=== PATIENT | male | born 1945 | race Caucasian/White ===

== ENCOUNTER → 2019-06-01 08:48 | Outpatient (BNVA) | payer MEDICARE, OTHER, SELFPAY | PROVIDERS: Family Provider Family Medicine; PCP Family Medicine; Referring Provider Internal Medicine Rheumatology; Visit Provider Internal Medicine Rheumatology | DX: M05.79 Rheumatoid arthritis with rheumatoid factor of multiple sites without organ or systems involvement (principal); Z79.899 Other long term (current) drug therapy | CPT/HCPCS: 36415; 82565; 84460; 85025; 85651; 86140 ==

== ENCOUNTER → 2019-06-01 09:03 | Outpatient (BNVA) | payer MEDICARE, OTHER, SELFPAY | PROVIDERS: Family Provider Family Medicine; PCP Family Medicine; Referring Provider Internal Medicine Rheumatology | DX: M05.79 Rheumatoid arthritis with rheumatoid factor of multiple sites without organ or systems involvement (principal) | CPT/HCPCS: 85025 ==

== ENCOUNTER → 2019-06-07 11:55 | Outpatient (BNVA) | payer MEDICARE, OTHER, SELFPAY | PROVIDERS: Family Provider Family Medicine; PCP Family Medicine; Visit Provider Internal Medicine Rheumatology | DX: M05.9 Rheumatoid arthritis with rheumatoid factor, unspecified (principal); Z79.899 Other long term (current) drug therapy; Z11.59 Encounter for screening for other viral diseases; Z11.1 Encounter for screening for respiratory tuberculosis | CPT/HCPCS: 36415; 80076; 82306; 82565; 85025; 85651; 86140; 86480; 86704; 86803; 87340; 99214 ==

== ENCOUNTER → 2019-06-07 13:01 | Outpatient (BNVA) | payer MEDICARE, OTHER, SELFPAY | PROVIDERS: Family Provider Family Medicine; PCP Family Medicine; Visit Provider Internal Medicine Rheumatology | DX: M05.9 Rheumatoid arthritis with rheumatoid factor, unspecified (principal); Z79.899 Other long term (current) drug therapy; Z11.59 Encounter for screening for other viral diseases | CPT/HCPCS: 85025 ==

== ENCOUNTER → 2019-08-29 12:28 | Outpatient (BNVA) | payer MEDICARE, OTHER, SELFPAY | PROVIDERS: Family Provider Family Medicine; PCP Family Medicine; Visit Provider Internal Medicine Rheumatology | DX: M19.90 Unspecified osteoarthritis, unspecified site (principal); Z79.899 Other long term (current) drug therapy | CPT/HCPCS: 36415; 80076; 82565; 85025; 85651; 86140 ==

== ENCOUNTER → 2019-09-07 12:51 | Outpatient (BNVA) | payer MEDICARE, OTHER, SELFPAY | PROVIDERS: Family Provider Family Medicine; PCP Family Medicine; Visit Provider Internal Medicine Rheumatology | DX: M05.79 Rheumatoid arthritis with rheumatoid factor of multiple sites without organ or systems involvement (principal); Z79.899 Other long term (current) drug therapy | CPT/HCPCS: 99214 ==

== ENCOUNTER → 2019-12-07 08:54 | Outpatient (BNVA) | payer MEDICARE, OTHER, SELFPAY | PROVIDERS: Family Provider Family Medicine; PCP Family Medicine; Visit Provider Internal Medicine Rheumatology | DX: Z79.899 Other long term (current) drug therapy (principal) | CPT/HCPCS: 36415; 80076; 82565; 85025; 85651; 86140 ==

== ENCOUNTER → 2020-03-26 11:31 | Outpatient (BNVA) | payer MEDICARE, OTHER, SELFPAY | PROVIDERS: Family Provider Family Medicine; PCP Family Medicine; Visit Provider Internal Medicine Rheumatology | DX: M05.79 Rheumatoid arthritis with rheumatoid factor of multiple sites without organ or systems involvement (principal); Z79.899 Other long term (current) drug therapy; Z87.891 Personal history of nicotine dependence | CPT/HCPCS: 99213 ==

== ENCOUNTER → 2020-09-04 09:52 | Outpatient (BNVA) | payer MEDICARE, OTHER, SELFPAY | PROVIDERS: Family Provider Family Medicine; PCP Family Medicine; Visit Provider Internal Medicine Rheumatology | DX: M05.79 Rheumatoid arthritis with rheumatoid factor of multiple sites without organ or systems involvement (principal); Z79.899 Other long term (current) drug therapy; I48.21 Permanent atrial fibrillation; Z87.891 Personal history of nicotine dependence | CPT/HCPCS: 99214 ==

== ENCOUNTER 2020-12-09 07:35 | Outpatient (CLI) | payer MEDICARE, OTHER, SELFPAY ==
--- NOTE | 2020-12-09 07:41 | USCV_ITS ---
Osvaldo Dwayne Age: 75 Gender: M : 1945 Exam Date: 12/09/2020 07:55 Ordering Phys: Agustin Beltran MD Technologist: Saqib Santos Exam Location: [facility] [place] Indication: CHEST PAIN BP: 130 / 75 HR: 76 Rhythm: Sinus Technical Quality: Fair MEASUREMENTS (Male / Female) Normal Values 2D ECHO LV Diastolic Diameter PLAX 3.8 cm 4.2 - 5.9 / 3.9 - 5.3 cm LV Systolic Diameter PLAX 2.2 cm IVS Diastolic Thickness 0.9 cm 0.6 - 1.0 / 0.6 - 0.9 cm IVS Systolic Thickness 0.8 cm LVPW Diastolic Thickness 1.0 cm 0.6 - 1.0 / 0.6 - 0.9 cm LVPW Systolic Thickness 2.2 cm LVOT Diameter 2.1 cm LV Ejection Fraction 2D Teich 51.2 % LV Ejection Fraction MOD 2C 59.7 % LV Ejection Fraction 2C AL 59.4 % LA Diameter 4.2 cm LA Width 3.6 cm LA Height 5.5 cm RA Width 4.3 cm RA Height 5.9 cm Aorta at Sinotubular Diameter 2.9 cm M-MODE MV E Point Septal Separation 0.8 cm DOPPLER AV Peak Velocity 127.0 cm/s LVOT Peak Velocity 84.0 cm/s AV Area Cont Eq vti 2.6 cm squared AV Area Cont Eq pk 2.4 cm squared MV Area PHT 5.0 cm squared Mitral E to A Ratio 2.0 MV E' Velocity 47.0 cm/s Mitral E to MV E' Ratio 6.4 Mitral E to LV E' Lateral Ratio 5.5 Mitral E to LV E' Septal Ratio 7.6 TR Peak Velocity 253.5 cm/s TR Peak Gradient 25.7 mmHg TV Peak E Velocity 87.0 cm/s Right Atrial Pressure 3.0 mmHg Pulmonary Artery Systolic Pressu 28.7 mmHg PV Peak Velocity 98.0 cm/s FINDINGS Left Ventricle Normal left ventricular cavity size. Normal left ventricular systolic function. No regional wall motion abnormalities. Left ventricular ejection fraction is estimated at 60 %. Grade II/IV diastolic dysfunction, moderately elevated filling pressures. Right Ventricle The right ventricle is normal in size and function. Right Atrium The right atrium is normal in size. Left Atrium The left atrium is normal in size. Mitral Valve Moderately thickened mitral valve. Mild mitral annular calcification. No mitral valve stenosis. Trace mitral valve regurgitation. Aortic Valve Structurally normal aortic valve without significant sclerosis or stenosis. There is no aortic regurgitation. Tricuspid Valve Moderate tricuspid valve regurgitation. Pulmonic Valve Mild pulmonary valve regurgitation. Pericardium Normal pericardium without effusion. Aorta Normal ascending aorta dimension. CONCLUSIONS 1-Normal left ventricular cavity size. Normal left ventricular systolic function. No regional wall motion abnormalities. Left ventricular ejection fraction is estimated at 60 %. Grade II/IV diastolic dysfunction, moderately elevated filling pressures. 2-Moderately thickened mitral valve. Mild mitral annular calcification. No mitral valve stenosis. Trace mitral valve regurgitation. 3-Moderate tricuspid valve regurgitation. 4-Structurally normal aortic valve without significant sclerosis or stenosis. There is no aortic regurgitation. 5-Mild pulmonary valve regurgitation. 6-There is no pericardial effusion. 7-Pulmonary artery systolic pressure is within normal limits. 8-Right atrial pressure is around 5 mm of mercury. 9-No significant change since the prior echocardiogram study of 04/21/2017. Kesha Frias MD (Electronically Signed) Final Date: 09 December 2020 20:05 S
== END 2020-12-09 07:36 | disposition home or self-care (01) ==
PROVIDERS: PCP Family Medicine; Visit Provider Family Medicine
DX: I48.91 Unspecified atrial fibrillation (principal); I50.32 Chronic diastolic (congestive) heart failure; I08.1 Rheumatic disorders of both mitral and tricuspid valves
CPT/HCPCS: 93306

== ENCOUNTER → 2021-02-24 12:48 | Outpatient (BNVA) | payer MEDICARE, OTHER, SELFPAY | PROVIDERS: PCP Family Medicine; Visit Provider Internal Medicine Rheumatology | DX: M05.79 Rheumatoid arthritis with rheumatoid factor of multiple sites without organ or systems involvement (principal); Z79.899 Other long term (current) drug therapy; I48.21 Permanent atrial fibrillation; Z71.89 Other specified counseling; Z87.891 Personal history of nicotine dependence | CPT/HCPCS: 99214 ==

== ENCOUNTER → 2021-04-28 14:15 | Outpatient (BNVA) | payer MEDICARE, OTHER, SELFPAY | PROVIDERS: PCP Family Medicine; Visit Provider Nurse Practitioner Family | DX: Z20.822 Contact with and (suspected) exposure to COVID-19 (principal) | CPT/HCPCS: 87426; 87635 ==

== ENCOUNTER 2021-04-30 09:09 | Outpatient (CLI) | payer MEDICARE, OTHER, SELFPAY ==
[2021-04-30 09:35] VITALS: BP 121/75; PULSE 91; RESP 17; TEMP 36.8; O2SAT 98; BMI 29.7
[2021-04-30 10:49] VITALS: BP 110/73; PULSE 68; RESP 18; TEMP 36.7; O2SAT 97
[2021-04-30 11:30] VITALS: BP 108/77; PULSE 76; RESP 17; TEMP 36.8; O2SAT 98
[2021-04-30 11:39] VITALS: BP 108/77; PULSE 76; RESP 17; TEMP 36.8; O2SAT 98
== END 2021-04-30 09:10 | disposition home or self-care (01) ==
LOC: OPS 09:20
PROVIDERS: PCP Family Medicine; Visit Provider Nurse Practitioner Family
DX: U07.1 COVID-19 (principal)
CPT/HCPCS: 96365

== ENCOUNTER → 2021-06-23 12:31 | Outpatient (BNVA) | payer MEDICARE, OTHER, SELFPAY | PROVIDERS: PCP Family Medicine; Visit Provider Internal Medicine Rheumatology | DX: M05.79 Rheumatoid arthritis with rheumatoid factor of multiple sites without organ or systems involvement (principal); I48.21 Permanent atrial fibrillation; Z79.899 Other long term (current) drug therapy; Z71.89 Other specified counseling | CPT/HCPCS: 99214 ==

== ENCOUNTER → 2021-09-19 08:59 | Outpatient (BNVA) | payer MEDICARE, OTHER, SELFPAY | PROVIDERS: PCP Family Medicine; Visit Provider Internal Medicine Rheumatology | DX: M05.79 Rheumatoid arthritis with rheumatoid factor of multiple sites without organ or systems involvement (principal); Z79.899 Other long term (current) drug therapy | CPT/HCPCS: 80076; 82565; 85025; 86140 ==

== ENCOUNTER → 2021-09-29 13:24 | Outpatient (BNVA) | payer MEDICARE, OTHER, SELFPAY | PROVIDERS: PCP Family Medicine; Visit Provider Internal Medicine Cardiovascular Disease | DX: I48.21 Permanent atrial fibrillation (principal); Z79.01 Long term (current) use of anticoagulants; I10 Essential (primary) hypertension | CPT/HCPCS: 99213; 99214 ==

== ENCOUNTER 2021-12-09 09:56 | Outpatient (CLI) | payer MEDICARE, OTHER, SELFPAY ==
[2021-12-09 10:34] LABS: Basophils % 0.2 %; Eosinophils # 0.8 10^3/uL (0.0-0.8); Eosinophils % 11.7 %; Hematocrit 43.8 % (42.0-52.0); Hemoglobin 14.7 g/dL (11.7-16.6); Lymphocytes # 1.5 10^3/uL (0.8-4.8); Lymphocytes % 23.2 %; Mean Corpuscular HGB Conc 33.6 g/dL (30.0-36.0); Mean Corpuscular Hemoglobin 32.3 pg (28.0-34.0); Mean Corpuscular Volume 96.3 fl (80-94); Mean Platelet Volume 9.1 fL (7.4-10.4); Monocytes # 0.2 10^3/uL (0.2-0.9); Monocytes % 3.2 %; Neutrophils # 4.04 10^3/uL (1.8-7.7); Neutrophils % 61.1 %; Nucleated Red Blood Cells % 0 %; Platelet Count 220 10^3/cmm (130-400); Red Blood Count 4.55 10^6/uL (4.1-5.3); Red Cell Distribution Width 13.7 % (12.1-15.1); White Blood Count 6.6 10^3/uL (4.0-10.0)
[2021-12-09 11:00] LABS: Alanine Aminotransferase 20 U/L (0-41); Albumin Level 3.9 g/dL (3.5-5.2); Alkaline Phosphatase 69 U/L (40-130); Aspartate Amino Transferase 20 U/L (0-40); C Reactive Protein 9.5 mg/L (0.0-4.9); Globulin 3.3 g/dL (1.3-4.6); Total Bilirubin 0.9 mg/dL (0.15-1.2); Total Protein 7.2 g/dL (6.6-8.7)
== END 2021-12-09 09:57 | disposition home or self-care (01) ==
LOC: LAB 09:59
PROVIDERS: PCP Family Medicine; Visit Provider Internal Medicine Rheumatology
DX: M05.79 Rheumatoid arthritis with rheumatoid factor of multiple sites without organ or systems involvement (principal); Z79.899 Other long term (current) drug therapy; M19.90 Unspecified osteoarthritis, unspecified site
CPT/HCPCS: 36415; 80076; 82565; 85025; 86140

== ENCOUNTER → 2021-12-15 10:11 | Outpatient (BNVA) | payer MEDICARE, OTHER, SELFPAY | PROVIDERS: PCP Family Medicine; Visit Provider Internal Medicine Rheumatology | DX: M05.79 Rheumatoid arthritis with rheumatoid factor of multiple sites without organ or systems involvement (principal); Z79.899 Other long term (current) drug therapy; Z71.89 Other specified counseling; Z79.01 Long term (current) use of anticoagulants | CPT/HCPCS: 99214 ==

== ENCOUNTER 2022-03-16 10:34 | Outpatient (CLI) | payer MEDICARE, OTHER, SELFPAY ==
[2022-03-16 11:17] LABS: Basophils % 0.2 %; Eosinophils # 0.5 10^3/uL (0.0-0.8); Eosinophils % 8.6 %; Hematocrit 42.8 % (42.0-52.0); Hemoglobin 14.3 g/dL (11.7-16.6); Lymphocytes # 1.2 10^3/uL (0.8-4.8); Lymphocytes % 22.5 %; Mean Corpuscular HGB Conc 33.4 g/dL (30.0-36.0); Mean Corpuscular Hemoglobin 32.9 pg (28.0-34.0); Mean Corpuscular Volume 98.4 fl (80-94); Mean Platelet Volume 9.1 fL (7.4-10.4); Monocytes # 0.2 10^3/uL (0.2-0.9); Monocytes % 3.7 %; Neutrophils # 3.44 10^3/uL (1.8-7.7); Neutrophils % 64.4 %; Nucleated Red Blood Cells % 0 %; Platelet Count 228 10^3/cmm (130-400); Red Blood Count 4.35 10^6/uL (4.1-5.3); Red Cell Distribution Width 13.3 % (12.1-15.1); White Blood Count 5.3 10^3/uL (4.0-10.0)
[2022-03-16 11:50] LABS: Alanine Aminotransferase 15 U/L (0-41); Albumin Level 3.5 g/dL (3.5-5.2); Alkaline Phosphatase 68 U/L (40-130); Aspartate Amino Transferase 14 U/L (0-40); C Reactive Protein 4.1 mg/L (0.0-4.9); Globulin 3.5 g/dL (1.3-4.6)
== END 2022-03-16 10:35 | disposition home or self-care (01) ==
PROVIDERS: PCP Family Medicine; Visit Provider Internal Medicine Rheumatology
DX: M05.79 Rheumatoid arthritis with rheumatoid factor of multiple sites without organ or systems involvement (principal); Z79.899 Other long term (current) drug therapy
CPT/HCPCS: 80076; 82565; 85025; 86140

== ENCOUNTER → 2022-04-22 13:48 | Outpatient (BNVA) | payer MEDICARE, OTHER, SELFPAY | PROVIDERS: PCP Family Medicine; Visit Provider Internal Medicine Cardiovascular Disease | DX: I48.21 Permanent atrial fibrillation (principal); I10 Essential (primary) hypertension; E78.5 Hyperlipidemia, unspecified; G47.33 Obstructive sleep apnea (adult) (pediatric); Z87.891 Personal history of nicotine dependence; Z79.01 Long term (current) use of anticoagulants | CPT/HCPCS: 93005; 99214 ==

== ENCOUNTER 2022-06-01 10:34 | Outpatient (CLI) | payer MEDICARE, OTHER, SELFPAY ==
[2022-06-01 11:08] LABS: Basophils % 0.2 %; Eosinophils # 0.5 10^3/uL (0.0-0.8); Eosinophils % 8.1 %; Hematocrit 42.9 % (42.0-52.0); Hemoglobin 14.2 g/dL (11.7-16.6); Lymphocytes # 1.2 10^3/uL (0.8-4.8); Lymphocytes % 19.7 %; Mean Corpuscular HGB Conc 33.1 g/dL (30.0-36.0); Mean Corpuscular Hemoglobin 31.8 pg (28.0-34.0); Mean Platelet Volume 9.1 fL (7.4-10.4); Monocytes # 0.2 10^3/uL (0.2-0.9); Neutrophils # 4.02 10^3/uL (1.8-7.7); Neutrophils % 67.5 %; Nucleated Red Blood Cells % 0 %; Platelet Count 185 10^3/cmm (130-400); Red Blood Count 4.47 10^6/uL (4.1-5.3); Red Cell Distribution Width 13.4 % (12.1-15.1)
[2022-06-01 11:26] LABS: Alanine Aminotransferase 14 U/L (0-41); Albumin Level 3.5 g/dL (3.5-5.2); Alkaline Phosphatase 74 U/L (40-130); Aspartate Amino Transferase 14 U/L (0-40); C Reactive Protein 14.9 mg/L (0.0-4.9); Globulin 2.9 g/dL (1.3-4.6); Total Protein 6.4 g/dL (6.6-8.7)
== END 2022-06-01 10:35 | disposition home or self-care (01) ==
LOC: LAB 10:41
PROVIDERS: Internal Medicine Rheumatology; PCP Family Medicine; Visit Provider Family Medicine
DX: M05.79 Rheumatoid arthritis with rheumatoid factor of multiple sites without organ or systems involvement (principal); Z79.899 Other long term (current) drug therapy; M19.90 Unspecified osteoarthritis, unspecified site
CPT/HCPCS: 36415; 80076; 82565; 85025; 86140

== ENCOUNTER → 2022-06-08 09:20 | Outpatient (BNVA) | payer MEDICARE, OTHER, SELFPAY | PROVIDERS: PCP Family Medicine; Visit Provider Internal Medicine Rheumatology | DX: M05.79 Rheumatoid arthritis with rheumatoid factor of multiple sites without organ or systems involvement (principal); Z79.899 Other long term (current) drug therapy; Z71.89 Other specified counseling; Z79.01 Long term (current) use of anticoagulants | CPT/HCPCS: 99214 ==

== ENCOUNTER → 2022-08-31 14:00 | Outpatient (BNVA) | payer MEDICARE, OTHER, SELFPAY | PROVIDERS: PCP Family Medicine; Visit Provider Family Medicine | DX: L98.9 Disorder of the skin and subcutaneous tissue, unspecified (principal) | CPT/HCPCS: 88304 ==

== ENCOUNTER 2022-09-04 12:34 | Outpatient (CLI) | payer MEDICARE, OTHER, SELFPAY ==
[2022-09-04 13:03] LABS: Basophils % 0.4 %; Eosinophils # 0.6 10^3/uL (0.0-0.8); Eosinophils % 10.9 %; Hematocrit 41.3 % (42.0-52.0); Hemoglobin 13.8 g/dL (11.7-16.6); Lymphocytes # 1.2 10^3/uL (0.8-4.8); Lymphocytes % 20.7 %; Mean Corpuscular HGB Conc 33.4 g/dL (30.0-36.0); Mean Corpuscular Hemoglobin 31.7 pg (28.0-34.0); Mean Corpuscular Volume 94.9 fl (80-94); Mean Platelet Volume 8.8 fL (7.4-10.4); Monocytes # 0.2 10^3/uL (0.2-0.9); Monocytes % 3.6 %; Neutrophils # 3.58 10^3/uL (1.8-7.7); Neutrophils % 63.7 %; Nucleated Red Blood Cells % 0 %; Platelet Count 204 10^3/cmm (130-400); Red Blood Count 4.35 10^6/uL (4.1-5.3); Red Cell Distribution Width 13.4 % (12.1-15.1); White Blood Count 5.6 10^3/uL (4.0-10.0)
[2022-09-04 13:19] LABS: Alanine Aminotransferase 11 U/L (0-41); Albumin Level 3.6 g/dL (3.5-5.2); Alkaline Phosphatase 70 U/L (40-130); Aspartate Amino Transferase 18 U/L (0-40); Globulin 2.8 g/dL (1.3-4.6); Total Protein 6.4 g/dL (6.6-8.7)
== END 2022-09-04 12:35 | disposition home or self-care (01) ==
PROVIDERS: Internal Medicine Rheumatology; PCP Family Medicine; Visit Provider Family Medicine
DX: M05.79 Rheumatoid arthritis with rheumatoid factor of multiple sites without organ or systems involvement (principal); Z79.899 Other long term (current) drug therapy
CPT/HCPCS: 36415; 80076; 82565; 85025; 86140

== ENCOUNTER → 2022-09-16 08:46 | Outpatient (BNVA) | payer MEDICARE, OTHER, SELFPAY | PROVIDERS: PCP Family Medicine; Referring Provider Family Medicine; Visit Provider Dermatology | DX: C44.519 Basal cell carcinoma of skin of other part of trunk (principal) | CPT/HCPCS: 11603; 12032 ==

== ENCOUNTER → 2022-11-02 09:07 | Outpatient (BNVA) | payer MEDICARE, OTHER, SELFPAY | PROVIDERS: PCP Family Medicine; Visit Provider Internal Medicine Rheumatology | DX: Z71.89 Other specified counseling (principal); Z79.899 Other long term (current) drug therapy | CPT/HCPCS: 99214 ==

== ENCOUNTER → 2022-11-04 13:35 | Outpatient (BNVA) | payer MEDICARE, OTHER, SELFPAY | PROVIDERS: PCP Family Medicine; Visit Provider Internal Medicine Cardiovascular Disease | DX: I48.21 Permanent atrial fibrillation (principal); I10 Essential (primary) hypertension; G47.33 Obstructive sleep apnea (adult) (pediatric); E78.5 Hyperlipidemia, unspecified; Z79.01 Long term (current) use of anticoagulants; Z87.891 Personal history of nicotine dependence | CPT/HCPCS: 99214 ==

== ENCOUNTER 2022-12-03 08:49 | Outpatient (CLI) | payer MEDICARE, OTHER, SELFPAY ==
[2022-12-03 09:23] LABS: Basophils % 0.4 %; Eosinophils # 1.2 10^3/uL (0.0-0.8); Eosinophils % 17.9 %; Hematocrit 43.2 % (42.0-52.0); Hemoglobin 14.4 g/dL (11.7-16.6); Lymphocytes # 1.9 10^3/uL (0.8-4.8); Lymphocytes % 27.6 %; Mean Corpuscular HGB Conc 33.3 g/dL (30.0-36.0); Mean Corpuscular Hemoglobin 32.4 pg (28.0-34.0); Mean Corpuscular Volume 97.1 fl (80-94); Mean Platelet Volume 8.7 fL (7.4-10.4); Monocytes # 0.5 10^3/uL (0.2-0.9); Monocytes % 6.6 %; Neutrophils # 3.13 10^3/uL (1.8-7.7); Neutrophils % 46.3 %; Nucleated Red Blood Cells % 0 %; Platelet Count 182 10^3/cmm (130-400); Red Blood Count 4.45 10^6/uL (4.1-5.3); Red Cell Distribution Width 14.7 % (12.1-15.1); White Blood Count 6.8 10^3/uL (4.0-10.0)
[2022-12-03 09:41] LABS: Alanine Aminotransferase 25 U/L (0-41); Albumin Level 3.8 g/dL (3.5-5.2); Alkaline Phosphatase 62 U/L (40-130); Aspartate Amino Transferase 33 U/L (0-40); Chol HDL Ratio 2.93 mg/dL (1.0-5.00); Cholesterol 117 mg/dL (0-200); Globulin 2.6 g/dL (1.3-4.6); HDL Cholesterol 40 mg/dL (60-100); LDL Cholesterol Calculated 55 mg/dL (50-129); LDL HDL Ratio 1.38 RATIO (0.00-3.22); Total Bilirubin 0.6 mg/dL (0.15-1.2); Total Protein 6.4 g/dL (6.6-8.7); Triglycerides 108 mg/dL (0-150)
== END 2022-12-03 08:50 | disposition home or self-care (01) ==
LOC: LAB 08:55
PROVIDERS: PCP Family Medicine; Visit Provider Internal Medicine Rheumatology
DX: M05.79 Rheumatoid arthritis with rheumatoid factor of multiple sites without organ or systems involvement (principal); Z79.899 Other long term (current) drug therapy; E78.5 Hyperlipidemia, unspecified
CPT/HCPCS: 36415; 80061; 80076; 82565; 85025; 86140

== ENCOUNTER → 2022-12-16 13:23 | Outpatient (BNVA) | payer MEDICARE, OTHER, SELFPAY | PROVIDERS: PCP Family Medicine; Visit Provider Nurse Practitioner Family | DX: L81.4 Other melanin hyperpigmentation (principal); D22.5 Melanocytic nevi of trunk; L57.8 Other skin changes due to chronic exposure to nonionizing radiation; L57.0 Actinic keratosis; Z85.828 Personal history of other malignant neoplasm of skin; D69.2 Other nonthrombocytopenic purpura | CPT/HCPCS: 17004; 99213 ==

== ENCOUNTER → 2023-01-14 08:59 | Outpatient (BNVA) | payer MEDICARE, OTHER, SELFPAY | PROVIDERS: PCP Family Medicine; Visit Provider Family Medicine | DX: R30.0 Dysuria (principal); E78.5 Hyperlipidemia, unspecified; I10 Essential (primary) hypertension; I48.91 Unspecified atrial fibrillation | CPT/HCPCS: 81000; 87077; 87086; 87184 ==

== ENCOUNTER 2023-03-04 09:36 | Outpatient (CLI) | payer MEDICARE, OTHER, SELFPAY ==
[2023-03-04 10:01] LABS: Basophils % 0.3 %; Eosinophils # 0.6 10^3/uL (0.0-0.8); Eosinophils % 9.7 %; Hematocrit 42.8 % (37-53); Lymphocytes # 1.3 10^3/uL (0.8-4.8); Lymphocytes % 22.2 %; Mean Corpuscular HGB Conc 33.4 g/dL (30-55); Mean Corpuscular Hemoglobin 32.4 pg (27-33); Mean Corpuscular Volume 97.1 fl (82-101); Mean Platelet Volume 8.7 fL (7.4-10.4); Monocytes # 0.2 10^3/uL (0.2-0.9); Neutrophils # 3.61 10^3/uL (1.8-7.7); Neutrophils % 62.8 %; Nucleated Red Blood Cells % 0 %; Platelet Count 187 10^3/cmm (157-399); Red Blood Count 4.41 10^6/uL (3.85-5.65); Red Cell Distribution Width 13.9 % (12.1-15.1); White Blood Count 5.76 10^3/uL (3.29-11.43)
[2023-03-04 10:21] LABS: Alanine Aminotransferase 23 U/L (0-41); Albumin Level 3.8 g/dL (3.5-5.2); Alkaline Phosphatase 76 U/L (40-130); Aspartate Amino Transferase 21 U/L (0-40); C Reactive Protein 5.7 mg/L (0.0-4.9); Globulin 3.3 g/dL (1.3-4.6); Total Bilirubin 0.6 mg/dL (0.15-1.2); Total Protein 7.1 g/dL (6.6-8.7)
== END 2023-03-04 09:37 | disposition home or self-care (01) ==
PROVIDERS: PCP Family Medicine; Visit Provider Internal Medicine Rheumatology
DX: M05.79 Rheumatoid arthritis with rheumatoid factor of multiple sites without organ or systems involvement (principal); Z79.899 Other long term (current) drug therapy
CPT/HCPCS: 36415; 80076; 82565; 85025; 86140

== ENCOUNTER 2023-03-25 09:13 | Outpatient (CLI) | payer MEDICARE, OTHER, SELFPAY ==
[2023-03-25 09:48] LABS: Blood Urea Nitrogen 23 mg/dL (8-23)
== END 2023-03-25 09:14 | disposition home or self-care (01) ==
PROVIDERS: PCP Family Medicine; Visit Provider Internal Medicine Rheumatology
DX: Z79.899 Other long term (current) drug therapy (principal); M05.79 Rheumatoid arthritis with rheumatoid factor of multiple sites without organ or systems involvement
CPT/HCPCS: 36415; 82565; 84520

== ENCOUNTER → 2023-04-27 14:18 | Outpatient (BNVA) | payer MEDICARE, OTHER, SELFPAY | PROVIDERS: PCP Family Medicine; Visit Provider Nurse Practitioner Family | DX: L57.0 Actinic keratosis (principal); Z85.828 Personal history of other malignant neoplasm of skin; L81.4 Other melanin hyperpigmentation; D22.5 Melanocytic nevi of trunk; L57.8 Other skin changes due to chronic exposure to nonionizing radiation; D69.2 Other nonthrombocytopenic purpura; L82.0 Inflamed seborrheic keratosis; D48.5 Neoplasm of uncertain behavior of skin | CPT/HCPCS: 11102; 17000; 17110; 99213 ==

== ENCOUNTER → 2023-05-03 09:21 | Outpatient (BNVA) | payer MEDICARE, OTHER, SELFPAY | PROVIDERS: PCP Family Medicine; Visit Provider Internal Medicine Rheumatology | DX: Z79.899 Other long term (current) drug therapy (principal); M05.79 Rheumatoid arthritis with rheumatoid factor of multiple sites without organ or systems involvement; Z71.89 Other specified counseling | CPT/HCPCS: 99214 ==

== ENCOUNTER → 2023-05-25 08:20 | Outpatient (BNVA) | payer MEDICARE, OTHER, SELFPAY | PROVIDERS: PCP Family Medicine; Visit Provider Dermatology | DX: C44.319 Basal cell carcinoma of skin of other parts of face (principal); C44.41 Basal cell carcinoma of skin of scalp and neck | CPT/HCPCS: 11622; 12042; 13132; 17311 ==

== ENCOUNTER → 2023-06-02 11:44 | Outpatient (BNVA) | payer MEDICARE, OTHER, SELFPAY | PROVIDERS: PCP Family Medicine; Visit Provider Family Medicine | DX: R05.9 Cough, unspecified (principal) | CPT/HCPCS: 87400 ==

== ENCOUNTER 2023-06-03 09:27 | Outpatient (CLI) | payer MEDICARE, OTHER, SELFPAY ==
[2023-06-03 10:13] LABS: Basophils % 0.2 %; Eosinophils # 0.6 10^3/uL (0.0-0.8); Eosinophils % 13.1 %; Hematocrit 45.4 % (37-53); Lymphocytes # 1.2 10^3/uL (0.8-4.8); Lymphocytes % 25.8 %; Mean Corpuscular HGB Conc 33.5 g/dL (30-55); Mean Corpuscular Volume 95.6 fl (82-101); Monocytes # 0.2 10^3/uL (0.2-0.9); Monocytes % 3.9 %; Neutrophils # 2.62 10^3/uL (1.8-7.7); Neutrophils % 56.4 %; Nucleated Red Blood Cells % 0 %; Platelet Count 196 10^3/cmm (157-399); Red Blood Count 4.75 10^6/uL (3.85-5.65); Red Cell Distribution Width 13.6 % (12.1-15.1); White Blood Count 4.65 10^3/uL (3.29-11.43)
[2023-06-03 10:31] LABS: Alanine Aminotransferase 20 U/L (0-41); Albumin Level 3.5 g/dL (3.5-5.2); Alkaline Phosphatase 71 U/L (40-130); Aspartate Amino Transferase 22 U/L (0-40); C Reactive Protein 13.5 mg/L (0.0-4.9); Globulin 3.7 g/dL (1.3-4.6); Total Bilirubin 0.6 mg/dL (0.15-1.2); Total Protein 7.2 g/dL (6.6-8.7)
[2023-06-03 10:47] LABS: 25 Hydroxy Vitamin D 26 ng/mL (30-100)
== END 2023-06-03 09:28 | disposition home or self-care (01) ==
LOC: LAB 09:27
PROVIDERS: PCP Family Medicine; Visit Provider Internal Medicine Rheumatology
DX: Z79.899 Other long term (current) drug therapy (principal); M05.79 Rheumatoid arthritis with rheumatoid factor of multiple sites without organ or systems involvement
CPT/HCPCS: 36415; 80076; 82306; 82565; 85025; 86140

== ENCOUNTER → 2023-06-07 08:46 | Outpatient (BNVA) | payer MEDICARE, OTHER, SELFPAY | PROVIDERS: PCP Family Medicine; Visit Provider Dermatology | DX: L40.0 Psoriasis vulgaris (principal) | CPT/HCPCS: 99212 ==

== ENCOUNTER → 2023-08-12 09:59 | Outpatient (BNVA) | payer MEDICARE, OTHER, SELFPAY | PROVIDERS: PCP Family Medicine; Visit Provider Internal Medicine Cardiovascular Disease | DX: I48.21 Permanent atrial fibrillation (principal); I10 Essential (primary) hypertension; E78.5 Hyperlipidemia, unspecified; G47.33 Obstructive sleep apnea (adult) (pediatric); M05.79 Rheumatoid arthritis with rheumatoid factor of multiple sites without organ or systems involvement; Z87.891 Personal history of nicotine dependence; Z79.01 Long term (current) use of anticoagulants | CPT/HCPCS: 99214 ==

== ENCOUNTER 2023-09-01 08:57 | Outpatient (CLI) | payer MEDICARE, OTHER, SELFPAY ==
[2023-09-01 09:27] LABS: Basophils % 0.3 %; Eosinophils # 0.6 10^3/uL (0.0-0.8); Eosinophils % 8.4 %; Hematocrit 42.5 % (37-53); Lymphocytes # 1.4 10^3/uL (0.8-4.8); Lymphocytes % 19.7 %; Mean Corpuscular HGB Conc 33.6 g/dL (30-55); Mean Corpuscular Hemoglobin 32.3 pg (27-33); Mean Corpuscular Volume 95.9 fl (82-101); Mean Platelet Volume 8.7 fL (7.4-10.4); Monocytes # 0.4 10^3/uL (0.2-0.9); Monocytes % 5.2 %; Neutrophils # 4.59 10^3/uL (1.8-7.7); Neutrophils % 65.7 %; Nucleated Red Blood Cells % 0 %; Platelet Count 192 10^3/cmm (157-399); Red Blood Count 4.43 10^6/uL (3.85-5.65); Red Cell Distribution Width 13.7 % (12.1-15.1); White Blood Count 6.99 10^3/uL (3.29-11.43)
[2023-09-01 09:36] LABS: Alanine Aminotransferase 16 U/L (0-41); Albumin Level 3.9 g/dL (3.5-5.2); Alkaline Phosphatase 84 U/L (40-130); Aspartate Amino Transferase 19 U/L (0-40); C Reactive Protein 6.8 mg/L (0.0-4.9); Globulin 3.3 g/dL (1.3-4.6); Total Bilirubin 0.8 mg/dL (0.15-1.2); Total Protein 7.2 g/dL (6.6-8.7)
== END 2023-09-01 08:58 | disposition home or self-care (01) ==
LOC: LAB 08:59
PROVIDERS: Internal Medicine Rheumatology; PCP Family Medicine
DX: M05.79 Rheumatoid arthritis with rheumatoid factor of multiple sites without organ or systems involvement (principal); Z79.899 Other long term (current) drug therapy
CPT/HCPCS: 36415; 80076; 82565; 85025; 86140

== ENCOUNTER → 2023-10-06 09:32 | Outpatient (BNVA) | payer MEDICARE, OTHER, SELFPAY | PROVIDERS: PCP Family Medicine; Visit Provider Nurse Practitioner Family | DX: L57.0 Actinic keratosis (principal); L56.8 Other specified acute skin changes due to ultraviolet radiation; L82.0 Inflamed seborrheic keratosis; L81.4 Other melanin hyperpigmentation; Z85.828 Personal history of other malignant neoplasm of skin | CPT/HCPCS: 17000; 17110; 99213 ==

== ENCOUNTER 2023-11-02 14:53 | Outpatient (CLI) | payer MEDICARE, OTHER, SELFPAY ==
[2023-11-02 15:34] LABS: Basophils # 0.1 10^3/uL (0.0-0.1); Basophils % 0.8 %; Eosinophils # 0.6 10^3/uL (0.0-0.8); Hematocrit 41.2 % (37-53); Lymphocytes # 3.7 10^3/uL (0.8-4.8); Lymphocytes % 36.3 %; Mean Corpuscular HGB Conc 33.5 g/dL (30-55); Mean Corpuscular Hemoglobin 31.8 pg (27-33); Mean Corpuscular Volume 94.9 fl (82-101); Mean Platelet Volume 9.3 fL (7.4-10.4); Monocytes # 0.8 10^3/uL (0.2-0.9); Neutrophils % 48.2 %; Nucleated Red Blood Cells % 0 %; Platelet Count 99 10^3/cmm (157-399); Red Blood Count 4.34 10^6/uL (3.85-5.65); Red Cell Distribution Width 13.8 % (12.1-15.1); White Blood Count 10.16 10^3/uL (3.29-11.43)
[2023-11-02 15:51] LABS: Alanine Aminotransferase 26 U/L (0-41); Albumin Level 3.9 g/dL (3.5-5.2); Alkaline Phosphatase 99 U/L (40-130); Aspartate Amino Transferase 28 U/L (0-40); C Reactive Protein 11.9 mg/L (0.0-4.9); Globulin 3.3 g/dL (1.3-4.6); Total Bilirubin 1.1 mg/dL (0.15-1.2); Total Protein 7.2 g/dL (6.6-8.7)
== END 2023-11-02 14:54 | disposition home or self-care (01) ==
LOC: LAB 14:57
PROVIDERS: PCP Family Medicine; Visit Provider Internal Medicine Rheumatology
DX: Z79.899 Other long term (current) drug therapy (principal); M05.79 Rheumatoid arthritis with rheumatoid factor of multiple sites without organ or systems involvement
CPT/HCPCS: 36415; 80076; 82565; 85025; 86140

== ENCOUNTER 2023-11-05 09:30 | Outpatient (CLI) | payer MEDICARE, OTHER, SELFPAY ==
--- NOTE | 2023-11-05 09:30 | USCV_ITS ---
Dwayne Riley Age: 78 Gender: M : 1945 Exam Date: 11/05/2023 09:38 Ordering Phys: Agustin Beltran MD Technologist: COREEN [place] [facility] [place]: TR BP: 133 / 84 HR: 82 Rhythm: Sinus Technical Quality: Adequate MEASUREMENTS (Male / Female) Normal Values 2D ECHO LV Diastolic Diameter PLAX 4.1 cm 4.2 - 5.9 / 3.9 - 5.3 cm IVS Diastolic Thickness 1.1 cm 0.6 - 1.0 / 0.6 - 0.9 cm IVS Systolic Thickness 1.5 cm LVPW Diastolic Thickness 1.6 cm 0.6 - 1.0 / 0.6 - 0.9 cm LVPW Systolic Thickness 2.0 cm LVOT Diameter 2.0 cm LV Ejection Fraction 2D Teich 66.2 % LV Ejection Fraction MOD 4C 59.0 % LV Ejection Fraction MOD 2C 63.5 % LV Ejection Fraction 2C AL 65.1 % LA Diameter 4.6 cm RA Systolic Volume 4C AL 87.0 ml RA Systolic Volume 4C MOD 84.0 ml LA Sys Volume AL 49.7 cm cubed LA Sys Volume Index AL 23.8 cm cubed/m squared Aorta at Sinotubular Diameter 2.3 cm M-MODE MV E Point Septal Separation 1.5 cm DOPPLER AV Peak Velocity 152.0 cm/s LVOT Peak Velocity 86.0 cm/s AV Area Cont Eq vti 1.8 cm squared AV Area Cont Eq pk 1.8 cm squared MV Peak Velocity 124.0 cm/s MV Area PHT 3.5 cm squared Mitral E to A Ratio 689.0 TR Peak Velocity 297.5 cm/s TR Peak Gradient 35.4 mmHg TR Mean Velocity 244.0 cm/s TR Mean Gradient 25.6 mmHg TR Velocity Time Integral 85.4 cm TV Peak E Velocity 45.0 cm/s Right Atrial Pressure 3.0 mmHg Pulmonary Artery Systolic Pressu 38.4 mmHg PV Peak Velocity 106.0 cm/s RV Ejection Time 0.3 s FINDINGS Left Ventricle Normal left ventricular size and systolic function, EF 60%. No regional wall motion abnormalities. Right Ventricle Normal right ventricular size and systolic function. Right Atrium Moderately increased right atrial size. Left Atrium Mildly increased left atrial size. Mitral Valve Trace to mild mitral valve regurgitation. Aortic Valve Thickened aortic valve. Tricuspid Valve [id number] tricuspid valve regurgitation. Pulmonic Valve [id number]-ca-[id number] pulmonary valve regurgitation. Pericardium No pericardial effusion. Aorta Normal ascending aorta dimension. IVC Normal inferior vena cava. CONCLUSIONS Normal left ventricular size and systolic function, EF 60%. No regional wall motion abnormalities. Moderately increased right atrial size. Mildly increased left atrial size. Trace to mild mitral valve regurgitation. [id number] tricuspid valve regurgitation. Thickened aortic valve. Qgsm-cx-bdhmrlxi pulmonary valve regurgitation. Estimated pulmonary artery peak systolic pressure 38 mmHg There is no pericardial effusion. There are no intracardiac masses. Compared to the study of rib report from 12/09/2020, the biatrial enlargement appears to be new Dr Jayant Diez MD [facility] (Electronically Signed) Final Date: 05 November 2023 22:32 S
== END 2023-11-05 09:31 | disposition home or self-care (01) ==
PROVIDERS: PCP Family Medicine; Visit Provider Family Medicine
DX: I07.1 Rheumatic tricuspid insufficiency (principal); I06.8 Other rheumatic aortic valve diseases; I09.89 Other specified rheumatic heart diseases
CPT/HCPCS: 93306

== ENCOUNTER → 2023-11-08 09:21 | Outpatient (BNVA) | payer MEDICARE, OTHER, SELFPAY | PROVIDERS: PCP Family Medicine; Visit Provider Internal Medicine Rheumatology | DX: M05.79 Rheumatoid arthritis with rheumatoid factor of multiple sites without organ or systems involvement (principal); Z79.899 Other long term (current) drug therapy; Z71.85 Encounter for immunization safety counseling | CPT/HCPCS: 36415; 85025; 99214 ==

== ENCOUNTER 2023-12-01 07:11 | Outpatient (CLI) | payer MEDICARE, OTHER, SELFPAY ==
--- NOTE | 2023-12-01 07:30 | CT_ITS ---
WS: [id number] CT chest w con* [id number] HISTORY: left axillary lymphadenopathy TECHNIQUE: Axial imaging performed through the thorax. Coronal and sagittal reformats are submitted. All CT scans at [facility] use at least one of these dose optimization techniques: automated exposure control; mA and/or kV adjustment per patient size (includes targeted exams where dose is mat ched to clinical indication); or iterative reconstruction. CONTRAST: Omnipaque 350; 100 mL IV. DLP: 501.34 mGy.cm COMPARISON: None available. Lungs and central airway: There are a few scattered pulmonary calcified granulomas. Mild pleural tagg ing. Mild thickening along the LEFT fissures. No mass. No pneumonia. There is a very tiny RIGHT pleur al effusion. Pleura: Very small RIGHT pleural effusion. Heart and pericardium: Mild cardiomegaly. Mediastinum and kari: There is extensive lymphadenopathy throughout the chest. Numerous small and enl arged mediastinal and hilar lymph nodes. Largest RIGHT paratracheal lymph node is 1.7 cm. There are n umerous small nodes through the AP window and subcarinal. Subcarinal lymph node measures 2.8 cm. No s ignificant hilar lymph nodes. Vessels: Mild atherosclerosis aorta. No aneurysm. Normal size pulmonary artery. Chest wall and lower neck: There is extensive lymphadenopathy throughout the lower neck and the axill a. Supraclavicular lymph nodes present bilaterally but greater distribution on the LEFT. There are sm all but numerous lymph nodes in the submental region. Extensive axillary and chest wall lymph nodes. The largest lymph nodes are on the LEFT. The largest measures 5.6 x 4.5 cm. Numerous enlarged mildly vascular lymph nodes. There are additional smaller subcutaneous lymph nodes throughout the thorax. There is also an enlarged LEFT thyroid nodule which it appears partially necrotic or cystic measuring 3.1 x 4.2 cm. Upper abdomen: Lymphadenopathy continues into the upper abdomen. Numerous lymph nodes at the GE junct ion and along the lesser curvature of the stomach. Celiac axis and chris hepatis lymph nodes with the largest lymph nodes measuring 4.2 cm. This 4.2 cm lymph node is precaval. Additional smaller mesente skye lymph nodes scattered in the upper abdomen. The spleen although incompletely imaged is markedly e nlarged with additional stranding which may be edema or tumor infiltration. Small lymph node in the p ericardiac fat on the RIGHT. Osseous structures: No destructive process. CT/CT chest w con* [id number] IMPRESSION: 1. Extensive lymphadenopathy throughout the chest and upper abdomen. There are lymph nodes noted within the lower neck, supraclavicular, axillary, chest wall and subcutaneous, mediastinal and hilar. Lymphadenopathy continues into the up per abdomen at the GE junction, lesser curvature the stomach, celiac axis, port a hepatis, mesentery and pericardiac fat. 2. Markedly enlarged spleen. 3. Findings are most likely due to lymphoma or leukemia. Less likely diffuse m etastatic disease. 4. No definite pulmonary mass identified. There are a few small calcified gran ulomata. No pneumonia. 5. Substernal LEFT thyroid mass versus goiter measures 3.1 x 4.2 cm. This can be further evaluated by ultrasound.
[2023-12-01] MEDS: iohexol 350 mg/mL 500 mL Btl (per mL) IV (07:53)
== END 2023-12-01 07:12 | disposition home or self-care (01) ==
PROVIDERS: PCP Family Medicine; Visit Provider Family Medicine
DX: R59.0 Localized enlarged lymph nodes (principal); R06.00 Dyspnea, unspecified; R16.1 Splenomegaly, not elsewhere classified; J84.10 Pulmonary fibrosis, unspecified; I70.0 Atherosclerosis of aorta; J90 Pleural effusion, not elsewhere classified; I51.7 Cardiomegaly
CPT/HCPCS: 71260; 80053; 85025; 85651; 86140; Q9967

== ENCOUNTER 2023-12-07 08:53 | Outpatient (CLI) | payer MEDICARE, OTHER, SELFPAY ==
--- NOTE | 2023-12-07 10:00 | US_ITS ---
WS: [id number] ULTRASOUND GUIDED BIOPSY LEFT AXILLARY LYMPHADENOPATHY. HISTORY: Multistation lymphadenopathy. Procedure, risks, and complications are explained to the patient. Consent was obtained. Skin is clean sed with ChloraPrep and anesthetized with 1% buffered lidocaine. LEFT axilla demonstrates numerous enlarged abnormal lymph nodes. Mild displacement of the fatty hilum and the cortex is diffusely thickened. Multiple core biopsies are performed with an 18-gauge Achieve needle. 4 biopsy specimens were placed in RPMI. Additional 4 core biopsies are placed in formalin. There is a small amount of bleeding at ad jacent to the lymph node. No soft tissue hematoma. Patient tolerated the procedure well and no compli cations. Patient to resume Eliquis the day following the biopsy. US/ biopsy lymph node [id number] IMPRESSION: 1. Uncomplicated core needle biopsy of the abnormal lymph nodes in the LEFT ax illa. Specimen is placed within RPMI for flow cytometry. Additional core biopsi es are placed within formalin. 2. No complications.
[2023-12-08 13:44] LABS: Lymphoma Profile (BBPL) See Report
== END 2023-12-07 08:54 | disposition home or self-care (01) ==
LOC: RAD 08:56
PROVIDERS: PCP Family Medicine; Visit Provider Family Medicine
DX: N63.32 Unspecified lump in axillary tail of the left breast (principal); R59.0 Localized enlarged lymph nodes
CPT/HCPCS: 38505; 76942; 88184; 88185; 88305; 88312; 88342

== ENCOUNTER 2023-12-11 15:21 | Emergency (ER) | payer MEDICARE, OTHER, SELFPAY ==
[2023-12-11] VITALS (9 sets, daily range): BP systolic 98–138; BP diastolic 52–87; PULSE 99–120; RESP 18–30; TEMP 36.5; O2SAT 93–97; BMI 32.4
--- NOTE | 2023-12-11 15:32 | ECG_ITS ---
[facility] Test Date: 2023-12-11 Pat Name: Dwayne Riley Department: Room: Gender: Male Upper Stitcher: : 1945 Requested By: Belkys Esquivel Order Number: [id number] Reading MD: YOCASTA HERNÁNDEZ Measurements Intervals Barton Rate: 112 P: 0 IN: 0 QRS: 66 QRSD: 91 T: -48 QT: 305 QTc: 417 Interpretive Statements ATRIAL FIBRILLATION WITH RAPID VENTRICULAR RESPONSE LOW QRS VOLTAGE IN PRECORDIAL LEADS [QRS DEFLECTION < 1.0 mV IN CHEST LEADS] NONSPECIFIC T-WAVE ABNORMALITY No previous ECG available for comparison Electronically Signed On 12-11-2023 20:18:26 CDT by YOCASTA HERNÁNDEZ [email or web address]
--- NOTE | 2023-12-11 15:53 | XRR_ITS ---
PROCEDURE INFORMATION: Exam: XR Chest Exam date and time: 12/11/2023 4:47 PM Age: 78 years old Clinical indication: Shortness of breath and other: Abdominal distention/edema in legs; Patient HX: C/O shortness of breath, abdominal distention/edema in legs; HX of chronic atrial fib; Recent biopsy in arm ; palpitations TECHNIQUE: Imaging protocol: Radiologic exam of the chest. Views: 1 view. COMPARISON: CT chest w con* [id number] 12/01/2023 7:24 AM FINDINGS: Lungs: There is linear scarring or atelectasis at the left lung base. No consolidated infiltrates are appreciated. Pleural spaces: Unremarkable. No pleural effusion. No pneumothorax. Heart/Mediastinum: The heart is enlarged. There is calcified plaque involving the aorta. Bones/joints: Unremarkable. XR/XR chest 1V portable [id number] IMPRESSION: 1. Cardiomegaly. 2. Linear atelectasis or scarring left lung base.
--- NOTE | 2023-12-11 16:02 | W.ED.SOB ---
HPI - SOB/Dyspnea General: Chief Complaint: Shortness of Breath/Dyspnea Stated Complaint: sob Time Seen by Provider: 12/11/23 15:39 History of Present Illness: HPI Narrative: 78-year-old male presents the emergency department chief complaint of progressive shortness of breath difficulty breathing abdominal distention and edema in his legs patient Adithya is a history of chronic atrial fibrillation reports has been recent off his Eliquis for last 5 days for recent biopsy he had done in the arm. Due to concerns of lymphoma located in his chest patient does not endorse any increased chest pain does report his atrial fibrillation is acting up which he contact his primary care doctor that started him on additional metoprolol half tablet 50 mg to be taken patient Dors is he been taking it this the early this morning he endorses generalized malaise and fatigue he reports having no chest pain does report abdominal distention with disc as well as the swelling in his legs patient presents to the ER for further assessment and management. Associated symptoms: Reports palpitations; Deny abdominal pain, chest pain, extremity pain, fever(s), nausea or vomiting Related Data Home Medications Medication Instructions Recorded Confirmed glucosamine HCl 1,500 mg tablet 1,500 mg PO DAILY 06/06/19 11/29/23 cholecalciferol (vitamin D3) 25 25 mcg PO DAILY 03/27/21 11/29/23 mcg (1,000 unit) capsule Previous Rx's Medication Instructions Recorded C-pap mask, cushions, head set #1 ea 12/30/21 amlodipine 10 mg tablet 10 mg PO DAILY #90 tabs 06/30/22 folic acid 1 mg tablet 1 mg PO DAILY #90 tabs 05/03/23 prednisone 10 mg tablet See Rx Instructions PO .COMPLEX 05/03/23 PRN joint pain #30 tabs metoprolol succinate 100 mg 100 mg PO DAILY #90 tabs 07/09/23 tablet,extended release 24 hr simvastatin 20 mg tablet 20 mg PO DAILY #90 tabs 08/04/23 isosorbide mononitrate 30 mg 15 mg (1/2 x 30 mg) PO DAILY #90 10/14/23 tablet,extended release 24 hr tabs lisinopril 20 mg tablet 20 mg PO DAILY #90 tabs 10/14/23 apixaban 5 mg tablet (Eliquis) 5 mg PO BID #180 tabs 11/08/23 methotrexate sodium 2.5 mg tablet 15 mg (6 x 2.5 mg) PO .weekly 11/08/23 rheumatoid arthritis #90 tabs furosemide 40 mg tablet 40 mg PO DAILY #30 tabs 12/02/23 potassium chloride 20 mEq 20 meq PO DAILY #30 tabs 12/02/23 tablet,extended release Allergies Allergy/AdvReac Type Severity Reaction Status Date / Time No Known Allergies Allergy Verified 12/11/23 15:34 Review of Systems General: Reports: 10 or more systems reviewed and unremarkable except in HPI and below Const: Denies: fever(s), chills, fatigue or malaise Eyes: Denies: change in vision or blurry vision Card: Reports: palpitations, irregular heart rhythm and edema; Denies: chest pain Resp: Reports: dyspnea; Denies: productive cough GI: Denies: abdominal pain, nausea or vomiting : Denies: flank pain Musc: Denies: extremity pain or extremity swelling Skin/Breast: Denies: rash or pruritus Neuro: Denies: headache(s) Psych: Denies: anxiety or depression Maximo/Lymph: Denies: easy bleeding All/Imm: Denies: urticaria, throat swelling or facial swelling PFSH ED PFSH: Medical History Tricuspid regurgitation Obstructive sleep apnea Anticoagulation adequate Immunization counseling Seropositive rheumatoid arthritis of multiple sites Atrial fibrillation Hypertension High risk medication use Encounter for screening for other viral diseases Rheumatoid arthritis with rheumatoid factor Surgical History S/P hernia repair No pertinent past surgical history Family History Mother Cancer Father Cancer Son Chronic kidney disease (CKD) Brother Lung disease Cancer Brother Lung disease Cancer Other Diabetes Hypertension Denies family history of Rheumatoid arthritis Lupus CAD (coronary artery disease) Clotting disorder Dementia Suicide Anesthesia complication Bleeding disorder Stroke Social History Smoking and tobacco/nicotine status: unknown if used tobacco/nicotine Alcohol intake: never Substance/Drug Use: never Physical Exam Narrative: EXAM NARRATIVE: Patient appears somewhat anxious however appears in no obvious acute distress. Const: COMMON NORMALS: no acute distress, patient oriented x3 and healthy appearing HENMT: COMMON NORMALS: normocephalic and atraumatic HEAD & SCALP: normocephalic and atraumatic Eye: COMMON NORMALS: Equal, round and reactive pupils present and EOMs intact bilaterally PUPIL: Yes Equal, round and reactive pupils present Neck/C-Spine: COMMON NORMALS: full ROM, supple and no JVD Lymph: LYMPHATIC: no lymphadenopathy noted Chest: COMMONS NORMALS: normal inspection of the chest and normal palpation of entire chest wall Resp: COMMON NORMALS: normal respiratory effort, No retractions and clear to auscultation bilaterally EFFORT & INSPECTION: Yes able to speak in complete sentences and Yes symmetric chest movement AUSCULTATION: clear to auscultation bilaterally OTHER: Diminished breath sounds appreciated bilaterally with no obvious wheezing crackles rales or rhonchi appreciated. Cardio: COMMON NORMALS: no JVD, regular rate and regular rhythm RATE: regular rate RHYTHM: regular rhythm GI: COMMON NORMALS: Normal to inspection, nondistended, normoactive bowel sounds present, Soft to palpation and non-tender INSPECTION: Yes normal to inspection PALPATION: Yes Soft to palpation OTHER: Moderate distention appreciated to the abdomen mild diffuse tenderness no rebound or guarding noted : COMMON NORMALS: Yes no CVA tenderness BLADDER/KIDNEY EXAM: Yes no CVA tenderness Back/Pelvis: COMMON NORMALS: no CVA tenderness Extremity: COMMON NORMALS: normal to inspection and full ROM; negative for no pedal edema (Moderate bilateral 2+ pitting edema appreciated) Neuro: COMMON NORMALS: patient oriented x3, CN's II-XII intact bilaterally, moves all extremities and no focal motor deficits Psych: COMMON NORMALS: mental status grossly normal, Normal thought process present, cooperative and normal affect THOUGHT PROCESS: Normal thought process present Skin: COMMON NORMALS: no rashes or lesions noted GENERAL SKIN EXAM: no rashes or lesions noted Course Vital Signs: Vital signs: Vital Signs Temperature 97.7 F 12/11/23 15:29 Pulse Rate 120 H 12/11/23 21:03 Respiratory Rate 28 H 12/11/23 21:03 Blood Pressure 105/59 12/11/23 21:03 Pulse Oximetry 97 12/11/23 21:03 Oxygen Delivery Me thod Room Air 12/11/23 21:03 MDM - SOB/Dyspnea Medical Decision Making Due to patient's symptoms and condition lab work and imaging will be obtained underlying concerns of's congestive heart failure exacerbation versus renal impairment is prominent patient was found to be 80s over 50s believe this may be due to beta-ximena overuse will continue to follow. Patient was found to have intra-abdominal carcinomatosis with significant ascites as well as small pleural effusions patient was because found be consistent A-fib and RVR with significant lymphadenopathy concerning for lymphoma patient does have a substantial white count of 28,000 underlying concerns of acute crisis appreciated he was found to be in renal failure with a lactic acid significant elevated at 6 patient did respond with IV fluids down to 5.2 sepsis bolus patient was afebrile with only mild shortness of breath. Discussed patient's case with Dr. 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 Tanvir Mathews, currently waiting on bed assignment notified by the transfer center a expect bed assignment later tonight. The patient was started on a Cardizem drip for his atrial fibrillation with RVR. Lab Data 12/11/23 15:55 12/11/23 15:55 Labs/Radiology: Radiology Impressions Chest/Abdomen/Pelvis CT 12/11/23 17:03 IMPRESSION: 1. Lower neck, axillary, and mediastinal lymphadenopathy is similar to the prior CT scan. 2. Small left pleural effusion with adjacent compressive atelectasis, worsened when compared to the prior study. Trace right pleural effusion appears similar to the prior study. IMPRESSION: 1. Splenomegaly extensive mesenteric and retroperitoneal lymphadenopathy raises concern for lymphoma. 2. Gallbladder wall is thickened and ill-defined. This can be seen with acute cholecystitis or with systemic disease. 3. Diffuse edema and nodularity of the omentum concerning for peritoneal carcinomatosis. 4. There is a moderate amount of free intraperitoneal fluid/ascites in the abdomen/pelvis. There is fluid which surrounds the appendix making evaluation of the appendix suboptimal. The appendix measures 7 mm which is mildly thickened. This is an indeterminate appendix. Differential includes early acute appendicitis versus normal variant. If acute appendicitis is clinically suspected, repeat imaging is recommended. COMMENTS: Consistent with the [employer]'s Incidental Findings Committee white paper (J Am Yonatan Radiol 2018): Any incidental renal lesion less than 1 cm or classified as too small to characterize, or any incidental cystic renal lesion characterized as simple-appearing, is likely benign. No follow-up imaging is recommended for these lesions per consensus recommendations based on imaging criteria. Laboratory Results WBC 28.63 10^3/uL (3.29-11.43) H 12/11/23 15:55 RBC 3.26 10^6/uL (3.85-5.65) L 12/11/23 15:55 Hgb 11.20 g/dL (11.27-16.99) L 12/11/23 15:55 Hct 36.0 % (37-53) L 12/11/23 15:55 MCV 110.4 fl (82-101) H 12/11/23 15:55 MCH 34.4 pg (27-33) H 12/11/23 15:55 MCHC 31.1 g/dL (30-55) 12/11/23 15:55 RDW 20.2 % (12.1-15.1) H 12/11/23 15:55 Plt Count 112 10^3/cmm (157-399) L 12/11/23 15:55 MPV 9.3 fL (7.4-10.4) 12/11/23 15:55 Lymph % (Auto) Not Reportable 12/11/23 15:55 Mcdowell % (Auto) Not Reportable 12/11/23 15:55 Lymph # (Auto) Not Reportable 12/11/23 15:55 Mcdowell # (Auto) Not Reportable 12/11/23 15:55 Total Counted 100 (0-100) 12/11/23 15:55 Atypical Lymphs % 8.0 % (0-5) H 12/11/23 15:55 Absolute Neutrophils 11.2 10^3/cmm (1.4-6.5) H 12/11/23 15:55 Segmented Neutrophils 35 % 12/11/23 15:55 Abs Segm Neuts (Man) 10.0 10/cmm (1.6-7.1) H 12/11/23 15:55 Band Neutrophils 4.0 % 12/11/23 15:55 Abs Band Neuts (Man) 1.1 10^3/cmm (0.0-1.2) 12/11/23 15:55 Absolute Lymphocytes 13.5 10^3/cmm (1.2-3.4) H 12/11/23 15:55 Lymphocytes (Manual) 39 % 12/11/23 15:55 Monocytes (Manual) 8.0 % 12/11/23 15:55 Absolute Monocytes 2.3 10^3/cmm (0.1-0.6) H 12/11/23 15:55 Eosinophils (Manual) 4 % 12/11/23 15:55 Absolute Eosinophils 1.1 10^3/cmm (0.0-0.7) H 12/11/23 15:55 Basophils (Manual) 0.0 % 12/11/23 15:55 Absolute Basophils 0.0 10^3/cmm (0.0-0.2) 12/11/23 15:55 Myelocytes 2.0 % 12/11/23 15:55 Nucleated RBCs 1.0 /100WBC (0-1) 12/11/23 15:55 Platelet Estimate Decreased (Normal) 12/11/23 15:55 Giant Platelets Trace 12/11/23 15:55 Poikilocytosis Trace 12/11/23 15:55 Anisocytosis 2+ H 12/11/23 15:55 Macrocytosis 1+ H 12/11/23 15:55 Sodium 138 mmol/L (136-145) 12/11/23 15:55 Potassium 5.7 mmol/L (3.5-5.1) H 12/11/23 15:55 Chloride 104 mmol/L (98-107) 12/11/23 15:55 Carbon Dioxide 14 mmol/L (22-29) L 12/11/23 15:55 Anion Gap 25.7 (5-19) H 12/11/23 15:55 BUN 59 mg/dL (8-23) H 12/11/23 15:55 Creatinine 3.4 mg/dL (0.7-1.2) H 12/11/23 15:55 GFR Calculation Not Reportable 12/11/23 15:55 Glucose 144 mg/dL (65-115) H 12/11/23 15:55 POC Glucose 292 mg/dL (70-110) H 12/11/23 21:24 Calculated Osmolality 305 mOsm/kg (285-295) H 12/11/23 15:55 Lactic Acid 6.8 mmol/L (0.5-2.2) H* 12/11/23 15:55 Lactic Acid (Sepsis) 5.2 mmol/L (0.5-2.2) H* 12/11/23 18:22 Calcium 10.0 mg/dL (8.5-10.5) 12/11/23 15:55 Total Bilirubin 1.5 mg/dL (0.15-1.2) H 12/11/23 15:55 AST 22 U/L (0-40) 12/11/23 15:55 ALT 11 U/L (0-41) 12/11/23 15:55 Alkaline Phosphatase 186 U/L (40-130) H 12/11/23 15:55 Troponin T Baseline 18 ng/L (0-15) H 12/11/23 15:55 Troponin T 120 Minute 17.78 ng/L (0-15) H 12/11/23 18:22 Delta Troponin T -0.22 ABS# (0-10) L 12/11/23 18:22 C-Reactive Protein 19.2 mg/L (0.0-4.9) H 12/11/23 15:55 NT-Pro-B Natriuret Pep 2424 pg/mL (0-450) H 12/11/23 15:55 Total Protein 5.7 g/dL (6.6-8.7) L 12/11/23 15:55 Albumin 3.1 g/dL (3.5-5.2) L 12/11/23 15:55 Globulin 2.6 g/dL (1.3-4.6) 12/11/23 15:55 Urine Color Dark yellow (Yellow) A 12/11/23 18:40 Urine Appearance Clear (CLEAR) 12/11/23 18:40 Urine pH 5.0 (5-7) 12/11/23 18:40 Ur Specific [place] 1.015 (1.005-1.030) 12/11/23 18:40 Urine Protein Trace (Negative) A 12/11/23 18:40 Urine Glucose (UA) Negative (Normal) 12/11/23 18:40 Urine Ketones Trace (Negative) 12/11/23 18:40 Urine Blood 2+ (Negative) A 12/11/23 18:40 Urine Nitrate Negative (Negative) 12/11/23 18:40 Urine Bilirubin Negative (Negative) 12/11/23 18:40 Urine Urobilinogen 1.0 mg/dL (Negative) 12/11/23 18:40 Ur Leukocyte Esterase Negative (Negative) 12/11/23 18:40 Urine RBC 11-20 /hpf (0-2) H 12/11/23 18:40 Urine WBC 0-5 /hpf (0-5) 12/11/23 18:40 Ur Squamous Epith Cells 0-5 /hpf (0-5) 12/11/23 18:40 Amorphous Sediment Not Reportable 12/11/23 18:40 Urine Bacteria None seen /hpf (NONE) 12/11/23 18:40 Hyaline Casts 91.84 /lpf 12/11/23 18:40 XR interpretation done by ED provider, pending radiology final review Discharge Plan Discharge Patient Disposition: Xfer Short-Term Hosp Clinical Impression: Mantle cell lymphoma of axilla, Abdominal carcinomatosis, Atrial fibrillation with rapid ventricular response, Abdominal ascites, Acute renal failure, Acute lactic acidosis Condition: Stable Prescriptions: No Action cholecalciferol (vitamin D3) 25 mcg (1,000 unit) capsule 25 mcg PO DAILY glucosamine HCl 1,500 mg tablet 1,500 mg PO DAILY (DME) C-pap mask, cushions, head set See Rx Instructions .Route .MEDSUPPLY Qty: 1 0RF Rx Instructions: As directed lisinopril 20 mg tablet 20 mg PO DAILY Qty: 90 3RF isosorbide mononitrate 30 mg tablet extended release 24 hr 15 mg PO DAILY Qty: 90 11RF amlodipine 10 mg tablet 10 mg PO DAILY Qty: 90 11RF folic acid 1 mg tablet 1 mg PO DAILY Qty: 90 3RF prednisone 10 mg tablet See Rx Instructions PO .COMPLEX PRN (Reason: joint pain) Qty: 30 1RF Rx Instructions: take 1 or 2 tab daily for 3-7days prn joint pain flare PO PRN; Eliquis 5 mg tablet 5 mg PO BID Qty: 180 1RF methotrexate sodium 2.5 mg tablet 15 mg PO .weekly Qty: 90 1RF furosemide 40 mg tablet 40 mg PO DAILY Qty: 30 3RF potassium chloride 20 mEq tablet extended release 20 meq PO DAILY Qty: 30 11RF metoprolol succinate 100 mg tablet extended release 24 hr 100 mg PO DAILY Qty: 90 3RF simvastatin 20 mg tablet 20 mg PO DAILY Qty: 90 3RF Referrals: Agustin Beltran MD [Primary Care Provider] - Coding Level of Care Code ED Clinical Quality Assurance Specialist for Lucio Schroeder
[2023-12-11 16:07] LABS: Mean Corpuscular HGB Conc 31.1 g/dL (30-55); Mean Corpuscular Hemoglobin 34.4 pg (27-33); Mean Corpuscular Volume 110.4 fl (82-101); Mean Platelet Volume 9.3 fL (7.4-10.4); Platelet Count 112 10^3/cmm (157-399); Red Blood Count 3.26 10^6/uL (3.85-5.65); Red Cell Distribution Width 20.2 % (12.1-15.1); White Blood Count 28.63 10^3/uL (3.29-11.43)
[2023-12-11] MEDS: sodium chloride 0.9% 1,000 ML 999 ML IV (16:08)
[2023-12-11 16:22] LABS: Troponin(5th) Baseline 18 ng/L (0-15)
[2023-12-11] MEDS: glucagon 1 mg/mL KIT 1 mL IVP (16:22)
[2023-12-11 16:25] LABS: Slide Review Slide Review Perform
[2023-12-11 16:27] LABS: Alanine Aminotransferase 11 U/L (0-41); Albumin Level 3.1 g/dL (3.5-5.2); Alkaline Phosphatase 186 U/L (40-130); Anion Gap 25.7 (5-19); Aspartate Amino Transferase 22 U/L (0-40); Blood Urea Nitrogen 59 mg/dL (8-23); C Reactive Protein 19.2 mg/L (0.0-4.9); Carbon Dioxide 14 mmol/L (22-29); Chloride 104 mmol/L (98-107); Globulin 2.6 g/dL (1.3-4.6); Glucose 144 mg/dL (65-115); NT Pro B Type Natriuretic Pept 2424 pg/mL (0-450); Osmolality Calculated 305 mOsm/kg (285-295); Potassium 5.7 mmol/L (3.5-5.1); Sodium 138 mmol/L (136-145); Total Bilirubin 1.5 mg/dL (0.15-1.2); Total Protein 5.7 g/dL (6.6-8.7)
[2023-12-11 16:28] LABS: Absolute Eosinophils 1.1 10^3/cmm (0.0-0.7); Band Neutrophils Absolute 1.1 10^3/cmm (0.0-1.2); Eosinophils 4 %; Lymphocytes 39 %; Lymphocytes Absolute 13.5 10^3/cmm (1.2-3.4); Monocytes Absolute 2.3 10^3/cmm (0.1-0.6); Segmented Neutrophils 35 %; Total Cells Counted 100 (0-100)
[2023-12-11 16:30] LABS: Absolute Neutrophil 11.2 10^3/cmm (1.4-6.5); Anisocytosis 2+; Giant Platelets Trace; Macrocytosis 1+; Platelet Estimate Decreased (Normal); Poikilocytosis Trace
[2023-12-11 16:34] LABS: Creatinine Clr Calc Pharmacy 18.9259
[2023-12-11 16:35] LABS: Lactic Sepsis W/Reflex 6.8 mmol/L (0.5-2.2)
--- NOTE | 2023-12-11 17:03 | CTR_ITS ---
PROCEDURE INFORMATION: Exam: CT Chest Without Contrast; Diagnostic Exam date and time: 12/11/2023 5:30 PM Age: 78 years old Clinical indication: Abdominal pain; Generalized; Chest pressure; Patient HX: Abdominal distension, renal failure, elevated liver enzymes 12/11/2023 creat: 3.4 gfr: 18; Additional info: Abdominal distension renal failure elevated liver enzymes TECHNIQUE: Imaging protocol: Diagnostic computed tomography of the chest without contrast. Radiation optimization: All CT scans at this facility use at least one of these dose optimization techniques: automated exposure control; mA and/or kV adjustment per patient size (includes targeted exams where dose is matched to clinical indication); or iterative reconstruction. COMPARISON: CT chest w con* [id number] 12/01/2023 7:24 AM RADIATION DOSE METRICS: Total DLP (mGy-cm): 1023.74 FINDINGS: Thyroid: 4.1 cm heterogeneous lesion in the left thyroid lobe appears similar to the prior study. Lungs: There are pulmonary parenchymal calcifications consistent with remote granulomatous organism exposure. Pleural spaces: Small left pleural effusion with adjacent compressive atelectasis, worsened when compared to the prior study. Trace right pleural effusion appears similar to the prior study. Heart: Unremarkable. No cardiomegaly. No pericardial effusion. Coronary arteries: Multivessel atherosclerotic disease which involves the coronary arteries. Lymph nodes: Lower neck, axillary, and mediastinal lymphadenopathy is similar to the prior CT scan. Vasculature: Unremarkable. No aortic aneurysm. Bones/joints: Unremarkable. No acute fracture. Soft tissues: Soft tissue anasarca. PROCEDURE INFORMATION: Exam: CT Abdomen And Pelvis Without Contrast Exam date and time: 12/11/2023 5:30 PM Age: 78 years old Clinical indication: Abdominal pain; Generalized; Chest pressure; Patient HX: Abdominal distension, renal failure, elevated liver enzymes 12/11/2023 creat: 3.4 gfr: 18; Additional info: Abdominal distension renal failure elevated liver enzymes TECHNIQUE: Imaging protocol: Computed tomography of the abdomen and pelvis without contrast. Radiation optimization: All CT scans at this facility use at least one of these dose optimization techniques: automated exposure control; mA and/or kV adjustment per patient size (includes targeted exams where dose is matched to clinical indication); or iterative reconstruction. COMPARISON: CT chest w con* [id number] 12/01/2023 7:24 AM RADIATION DOSE METRICS: Total DLP (mGy-cm): 1023.74 FINDINGS: Liver: Normal. No mass. Gallbladder and biliary ducts: Gallbladder wall is thickened and ill-defined. There is pericholecystic fluid. Pancreas: Normal. No ductal dilation. Spleen: The spleen is enlarged measuring 17.7 cm. Adrenal glands: Normal. No mass. Kidneys and ureters: 2.9 cm cyst in the right kidney has benign features. Follow-up is not necessary. Stomach and bowel: There is diverticulosis of the colon without evidence of diverticulitis. Appendix: There is fluid which surrounds the appendix making evaluation of the appendix suboptimal. The appendix measures 7 mm which is mildly thickened. Intraperitoneal space: There is a moderate amount of free intraperitoneal fluid/ascites in the abdomen and pelvis. Diffuse edema and nodularity of the omentum concerning for peritoneal carcinomatosis. Vasculature: Unremarkable. No abdominal aortic aneurysm. Lymph nodes: Extensive mesenteric and retroperitoneal lymphadenopathy. 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 Urinary bladder: Unremarkable as visualized. Reproductive: Unremarkable as visualized. Bones/joints: Unremarkable. No acute fracture. Soft tissues: Unremarkable. CT/[place] [id number] IMPRESSION: 1. Lower neck, axillary, and mediastinal lymphadenopathy is similar to the prior CT scan. 2. Small left pleural effusion with adjacent compressive atelectasis, worsened when compared to the prior study. Trace right pleural effusion appears similar to the prior study. IMPRESSION: 1. Splenomegaly extensive mesenteric and retroperitoneal lymphadenopathy raises concern for lymphoma. 2. Gallbladder wall is thickened and ill-defined. This can be seen with acute cholecystitis or with systemic disease. 3. Diffuse edema and nodularity of the omentum concerning for peritoneal carcinomatosis. 4. There is a moderate amount of free intraperitoneal fluid/ascites in the abdomen/pelvis. There is fluid which surrounds the appendix making evaluation of the appendix suboptimal. The appendix measures 7 mm which is mildly thickened. This is an indeterminate appendix. Differential includes early acute appendicitis versus normal variant. If acute appendicitis is clinically suspected, repeat imaging is recommended. COMMENTS: Consistent with the [employer]'s Incidental Findings Committee white paper (J Am Yonatan Radiol 2018): Any incidental renal lesion less than 1 cm or classified as too small to characterize, or any incidental cystic renal lesion characterized as simple-appearing, is likely benign. No follow-up imaging is recommended for these lesions per consensus recommendations based on imaging criteria.
[2023-12-11 17:50] LABS: Reflex Lactate Order REFLEX LACTIC ORDERD
[2023-12-11 18:46] LABS: Troponin 5 2HR 17.78 ng/L (0-15)
[2023-12-11 18:47] LABS: Troponin 5 2HR Delta -0.22 ABS# (0-10)
[2023-12-11 18:50] LABS: Charge for UA Resulting for Rev
[2023-12-11 18:56] LABS: Bilirubin Urine Negative (Negative); Blood Urine 2+ (Negative); Glucose Urine UA Negative (Normal); Ketones Urine Trace (Negative); Leukocyte Esterase Urine Negative (Negative); Nitrate Urine Negative (Negative); Protein Urine Trace (Negative); Specific Gravity, Urine 1.015 (1.005-1.030); Urine Appearance Clear (CLEAR); Urine Color Dark Yellow (Yellow)
[2023-12-11 18:58] LABS: Lactic Acid level (Lactate) 5.2 mmol/L (0.5-2.2)
[2023-12-11 19:01] LABS: Bacteria Urine None Seen /hpf; Hyaline Casts Urine 91.84 /lpf; Squamous Epithelial Cell Urine 0-5 /hpf (0-5); WBC Urine 0-5 /hpf (0-5)
[2023-12-11 19:18] LABS: UA Slide Review UA Slide Review Perf
[2023-12-11] MEDS: dilTIAZem 5 mg/mL SDV 5 mL 10 MG IVP ×2 (19:41→21:06)
[2023-12-11] MEDS: dilTIAZem 100 MG in sodium chloride 0.9% (add-van) 100 ML IV (21:16)
[2023-12-11 21:27] LABS: Glucose Point of Care 117 mg/dL (70-110)
[2023-12-11 21:27] LABS: Glucose Point of Care 292 mg/dL (70-110)
[2023-12-11 22:25] LABS: Troponin 5 6HR 17.65 ng/L (0-15)
[2023-12-11 22:27] LABS: Troponin 5 6HR Delta -0.35 ng/L (0-12)
== END 2023-12-11 23:36 | disposition short-term general hospital (02) ==
PROVIDERS: Emergency Provider Emergency Medicine; PCP Family Medicine
DX: C83.14 Mantle cell lymphoma, lymph nodes of axilla and upper limb (principal); C80.0 Disseminated malignant neoplasm, unspecified; I48.20 Chronic atrial fibrillation, unspecified; R18.8 Other ascites; N17.9 Acute kidney failure, unspecified; E87.21 Acute metabolic acidosis; Z79.01 Long term (current) use of anticoagulants; I10 Essential (primary) hypertension
CPT/HCPCS: 36415; 36416; 51702; 71045; 71250; 74176; 80053; 81003; 81015; 82962; 83605; 83880; 84484; 85007; 85025; 86140; 87040; 93005; 96374; 96375; 96376; 99285; J1610; J3490; J7030

== ENCOUNTER 2023-12-30 16:42 | Outpatient (CLI) | payer MEDICARE, OTHER, SELFPAY ==
[2023-12-30 16:59] LABS: Basophils # 0.2 10^3/uL (0.0-0.1); Basophils % 0.6 %; Eosinophils # 0.3 10^3/uL (0.0-0.8); Eosinophils % 0.7 %; Hematocrit 30.4 % (37-53); Lymphocytes % 16.8 %; Mean Corpuscular HGB Conc 32.2 g/dL (30-55); Mean Corpuscular Hemoglobin 32.7 pg (27-33); Mean Corpuscular Volume 101.3 fl (82-101); Monocytes # 1.9 10^3/uL (0.2-0.9); Monocytes % 5.2 %; Neutrophils % 71.4 %; Nucleated Red Blood Cells # 0.1 /100WBC; Nucleated Red Blood Cells % 0.3 %; Platelet Count 148 10^3/cmm (157-399); Red Cell Distribution Width 19.5 % (12.1-15.1)
[2023-12-30 17:14] LABS: Alanine Aminotransferase 13 U/L (0-41); Albumin Level 3.3 g/dL (3.5-5.2); Alkaline Phosphatase 440 U/L (40-130); Anion Gap 19.6 (5-19); Aspartate Amino Transferase 20 U/L (0-40); Blood Urea Nitrogen 21 mg/dL (8-23); Calcium 7.9 mg/dL (8.5-10.5); Carbon Dioxide 21 mmol/L (22-29); Chloride 108 mmol/L (98-107); Globulin 2.6 g/dL (1.3-4.6); Glucose 72 mg/dL (65-115); Osmolality Calculated 302 mOsm/kg (285-295); Potassium 3.6 mmol/L (3.5-5.1); Sodium 145 mmol/L (136-145); Total Bilirubin 1.1 mg/dL (0.15-1.2); Total Protein 5.9 g/dL (6.6-8.7)
[2023-12-30 17:37] LABS: Slide Review Slide Review Perform
== END 2023-12-30 16:43 | disposition home or self-care (01) ==
LOC: LAB 16:45
PROVIDERS: PCP Family Medicine; Visit Provider Internal Medicine Medical Oncology
DX: C83.10 Mantle cell lymphoma, unspecified site (principal)
CPT/HCPCS: 80053; 85025

== ENCOUNTER → 2024-01-04 08:35 | Outpatient (BNVA) | payer MEDICARE, OTHER, SELFPAY | PROVIDERS: PCP Family Medicine; Visit Provider Student in an Organized Health Care Education/Training Program | DX: C83.10 Mantle cell lymphoma, unspecified site (principal) | CPT/HCPCS: 99204 ==

== ENCOUNTER 2024-01-04 12:24 | Outpatient (CLI) | payer MEDICARE, OTHER, SELFPAY ==
[2024-01-04 12:39] LABS: Basophils # 0.2 10^3/uL (0.0-0.1); Basophils % 0.5 %; Eosinophils # 0.5 10^3/uL (0.0-0.8); Eosinophils % 1.3 %; Hematocrit 28.7 % (37-53); Lymphocytes # 6.9 10^3/uL (0.8-4.8); Lymphocytes % 18.1 %; Mean Corpuscular HGB Conc 32.1 g/dL (30-55); Mean Corpuscular Hemoglobin 32.5 pg (27-33); Mean Corpuscular Volume 101.4 fl (82-101); Mean Platelet Volume 8.4 fL (7.4-10.4); Monocytes # 0.8 10^3/uL (0.2-0.9); Monocytes % 2.2 %; Neutrophils # 28.01 10^3/uL (1.8-7.7); Neutrophils % 73.7 %; Nucleated Red Blood Cells % 0.1 %; Platelet Count 126 10^3/cmm (157-399); Red Blood Count 2.83 10^6/uL (3.85-5.65); Red Cell Distribution Width 19.2 % (12.1-15.1)
[2024-01-04 13:00] LABS: Alanine Aminotransferase 12 U/L (0-41); Alkaline Phosphatase 227 U/L (40-130); Anion Gap 17.5 (5-19); Aspartate Amino Transferase 17 U/L (0-40); Blood Urea Nitrogen 29 mg/dL (8-23); Carbon Dioxide 26 mmol/L (22-29); Chloride 102 mmol/L (98-107); Globulin 3.6 g/dL (1.3-4.6); Glucose 124 mg/dL (65-115); Osmolality Calculated 301 mOsm/kg (285-295); Potassium 3.5 mmol/L (3.5-5.1); Sodium 142 mmol/L (136-145); Total Bilirubin 0.9 mg/dL (0.15-1.2); Total Protein 6.6 g/dL (6.6-8.7)
[2024-01-04 13:02] LABS: White Blood Count 37.98 10^3/uL (3.29-11.43)
[2024-01-04 13:03] LABS: Slide Review Slide Review Perform
== END 2024-01-04 12:25 | disposition home or self-care (01) ==
LOC: LAB 12:25
PROVIDERS: PCP Family Medicine; Visit Provider Internal Medicine Medical Oncology
DX: C83.10 Mantle cell lymphoma, unspecified site (principal)
CPT/HCPCS: 80053; 85025

== ENCOUNTER → 2024-01-05 11:37 | Day surgery (SDC) | payer MEDICARE, OTHER, SELFPAY ==
[2024-01-05] VITALS (10 sets, daily range): BP systolic 96–136; BP diastolic 69–97; PULSE 103–126; RESP 18–30; TEMP 36.3–36.7; O2SAT 91–99; BMI 31.6
--- NOTE | 2024-01-05 11:41 | SC_ITS ---
WS: [id number] C-arm [place] for CVA [id number] REASON FOR EXAM: port placement FINDINGS: Placement of right chest chemotherapy infusion port with trans right internal jugular catheter with t he tip in the distal SVC. SC/C-arm [place] for CVA [id number] IMPRESSION: Right chest port and catheter in proper position.
--- NOTE | 2024-01-05 12:01 | P.ANESASSM_ITS ---
Pre-Anesthetic Assessment Height/Weight: Height 1.7 m Operation Date: 01/05/24 13:30 Proposed Procedures p Portacath Placement 72774,C83.10(Not Applicable) - Zachariah Joshua MD Familial anesthetic complications: None Was Beta Antonieta taken within 24 hours: N/A Was Clonidine taken within 24 hours: N/A Last intake: > 8 hrs, denies nausea or active gerd, states can lay flat without reflux Social No alcohol and No tobacco Exam alert, oriented x 3, clear to auscultation bilaterally and regular rate & rhythm Airway Mallampati: Class II Dentition: false Pulmonary Sleep Apnea CV/HEM Atrial Fibrillation and Hypertension Echo CONCLUSIONS Normal left ventricular size and systolic function, EF 60%. No regional wall motion abnormalities. Moderately increased right atrial size. Mildly increased left atrial size. Trace to mild mitral valve regurgitation. [id number] tricuspid valve regurgitation. Thickened aortic valve. [id number] pulmonary valve regurgitation. Estimated pulmonary artery peak systolic pressure 38 mmHg There is no pericardial effusion. There are no intracardiac masses. Compared to the study of rib report from 12/09/2020, the biatrial enlargement appears to be new GI peritoneal carcinomatosis with ascites, improved with medications. States he feels his stomach is almost back to normal Musc/sk lymphoma Anesthetic Plan ASA status: 3 Anesthesia: Choice Risk of > 500 ml blood loss (7ml/kg in children): No Medications/Allergies Home Medications Medication Instructions Recorded Confirmed Last Taken Type glucosamine HCl 1,500 mg tablet 1,500 mg PO DAILY 06/06/19 01/04/24 01/04/24 History cholecalciferol (vitamin D3) 25 25 mcg PO DAILY 03/27/21 01/04/24 01/04/24 History mcg (1,000 unit) capsule C-pap mask, cushions, head set #1 ea 12/30/21 01/04/24 Unknown Rx folic acid 1 mg tablet 1 mg PO DAILY #90 tabs 05/03/23 01/04/24 01/04/24 Rx simvastatin 20 mg tablet 20 mg PO DAILY #90 tabs 08/04/23 01/04/24 01/04/24 Rx apixaban 5 mg tablet (Eliquis) 5 mg PO BID #180 tabs 11/08/23 01/04/24 01/03/24 Rx bumetanide 2 mg tablet 2 mg PO DAILY #30 tabs 12/31/23 01/04/24 01/04/24 Rx hydrocortisone 2.5 % topical cream 1 applic [place] DAILY PRN hemorrhoids 12/31/23 01/04/24 Unknown Rx with perineal applicator #30 grams (Procto-Med HC) loperamide 2 mg capsule 2 mg PO DAILY PRN Diarrhea 12/31/23 01/04/24 Unknown History ondansetron 4 mg disintegrating 4 mg PO 2XD PRN Nausea And Vomiting 12/31/23 01/04/24 Unknown History tablet potassium chloride 10 mEq 10 meq PO BID #60 caps 12/31/23 01/04/24 01/04/24 Rx capsule,extended release valacyclovir 500 mg tablet 500 mg PO DAILY 12/31/23 01/04/24 01/04/24 History metoprolol succinate 100 mg 100 mg PO DAILY 01/04/24 01/05/24 01/05/24 History tablet,extended release 24 hr Allergies Allergy/AdvReac Type Severity Reaction Status Date / Time No Known Allergies Allergy Verified 01/04/24 08:43 [facility] Anesthesia Medical History Mantle cell lymphoma Tricuspid regurgitation Obstructive sleep apnea Anticoagulation adequate Immunization counseling Seropositive rheumatoid arthritis of multiple sites Atrial fibrillation Hypertension High risk medication use Encounter for screening for other viral diseases Rheumatoid arthritis with rheumatoid factor Surgical History H/O bilateral cataract extraction S/P hernia repair Family History Mother Uterine cancer Father Leukemia Son Chronic kidney disease (CKD) Lupus (systemic lupus erythematosus) Brother Lung cancer Brother Leukemia Sister Leukemia Daughter Antiphospholipid syndrome Other Diabetes Hypertension Denies family history of Rheumatoid arthritis Lupus CAD (coronary artery disease) Clotting disorder Dementia Suicide Anesthesia complication Bleeding disorder Stroke Social History Smoking and tobacco/nicotine status: former use of tobacco/nicotine Quit status (tobacco/nicotine): has quit using Former quit date comment: He smoked in the past but quit at least 60 years ago. Alcohol intake: never Substance/Drug Use: never Data Anesthesia Cardiac Studies: 2 Echocardiogram 11/05/23
[2024-01-05] MEDS: sodium chloride 0.9% 1,000 ML 30 ML IV (12:21)
--- NOTE | 2024-01-05 14:15 | P.HP_ITS ---
Same Day Surgery H&P Indication for Procedure/HPI DATE OF PROCEDURE: January 05, 2024 CHIEF COMPLAINT/INDICATIONFOR SURGICAL PROCEDURE: port placement for chemotherapy PREOP DIAGNOSIS: Lymphoma PLANNED PROCEDURE: Operation Date: 01/05/24 13:30 Proposed Procedures p Portacath Placement 36538,C83.10(Not Applicable) - Zachariah Joshua MD Medications/Allergies* Home Medications Medication Instructions Recorded Confirmed Type glucosamine HCl 1,500 mg tablet 1,500 mg PO DAILY 06/06/19 01/04/24 History cholecalciferol (vitamin D3) 25 25 mcg PO DAILY 03/27/21 01/04/24 History mcg (1,000 unit) capsule loperamide 2 mg capsule 2 mg PO DAILY PRN Diarrhea 12/31/23 01/04/24 History ondansetron 4 mg disintegrating 4 mg PO 2XD PRN Nausea And Vomiting 12/31/23 01/04/24 History tablet valacyclovir 500 mg tablet 500 mg PO DAILY 12/31/23 01/04/24 History metoprolol succinate 100 mg 100 mg PO DAILY 01/04/24 01/05/24 History tablet,extended release 24 hr Allergies/Adverse Reactions Allergy/AdvReac Type Severity Reaction Status Date / Time No Known Allergies Allergy Verified 01/04/24 08:43 Current Medications: Generic Name Dose Route Start Last Admin Trade Name Freq PRN Reason Stop Dose Admin Sodium Chloride 1,000 mls @ 30 mls/hr 01/05/24 12:15 01/05/24 12:21 Sodium Chloride 0.9% IV 01/06/24 12:14 30 mls/hr .Q24H ARISTIDES Administration Pertinent History/Comorbid Conditions* Medical History (Updated 12/31/23 @ 13:44 by Nicholas Dickerson MD) Mantle cell lymphoma Tricuspid regurgitation Obstructive sleep apnea Anticoagulation adequate Immunization counseling Seropositive rheumatoid arthritis of multiple sites Atrial fibrillation Hypertension High risk medication use Encounter for screening for other viral diseases Rheumatoid arthritis with rheumatoid factor Surgical History (Updated 12/31/23 @ 13:55 by Nicholas Dickerson MD) H/O bilateral cataract extraction S/P hernia repair Family History (Updated 12/31/23 @ 13:54 by Nicholas Dickerson MD) Lupus (systemic lupus erythematosus) Son Antiphospholipid syndrome Daughter Diabetes Leukemia Father Brother Sister Chronic kidney disease (CKD) Son Lung cancer Brother Hypertension Uterine cancer Mother Denies family history of Rheumatoid arthritis Lupus CAD (coronary artery disease) Clotting disorder Dementia Suicide Anesthesia complication Bleeding disorder Stroke Social History Smoking and tobacco/nicotine status: former use of tobacco/nicotine Quit status (tobacco/nicotine): has quit using Former quit date comment: He smo ked in the past but quit at least 60 years ago. Alcohol intake: never Substance/Drug Use: never Pertinent Exam Findings alert, oriented x 3, regular rate & rhythm and procedure specific exam findings Neck: no abnormalities Recommendations Surgery/Procedure today Other Plans: OR for port placement. Patient agreeable to port placement on either side. Coding Level of Care Code Acute Code for Lucio Schroeder
[2024-01-05] MEDS: ceFAZolin 2,000 mg SDV 2000 MG IVP (14:24)
[2024-01-05] MEDS: heparin, porcine 1,000 unit/mL INJ 10 mL 10000 UNIT IRRIGATION (14:57)
[2024-01-05] MEDS: lidocaine-epi 1% 20 mL INJ INJECTION (15:00)
[2024-01-05] MEDS: BUPivacaine 0.25% INJ 10 mL INJECTION (15:00)
--- NOTE | 2024-01-05 15:14 | W.PM.BPONFUL ---
Pathology: NA Implant(s): Port-a-cath (Right internal jugular vein) Anesthesia: general anesthesia Complications: none Brief history/preop diagnosis: 78 yo male who presented for port placement for chemotherapy. Patient consented to the procedure after discussing risks and benefits. Full operative report: Patient was brought into the operating room and a timeout was carried out. Procedure was done under general anesthesia. Patient was placed supine with the arms tucked and in Trendelenburg. Patient was prepped and draped in the usual sterile fashion. Using ultrasound guidance the right internal jugular vein was accessed. A guidewire was then placed down to the atriocaval junction using fluoroscopy. The finder needle was removed and the guidewire was secured. I then turned my attention to creating a pocket over the right chest. Make sure to locally infiltrated using lidocaine and bupivacaine with epinephrine at the site of the pocket and throughout the tunnel site. I confirmed adequate hemostasis at the pocket. I then proceeded to place the port that was already preassembled and flushed with heparin saline and the chest pocket. I tunneled the catheter from the chest to the neck at the site where I accessed the internal jugular vein. I measured and adjusted the length of the catheter so it would reach the atrial caval junction. At this point, I used a dilator to dilate the tract into the internal jugular vein using fluoroscopy. I removed the guidewire and proceeded to thread the central venous catheter through the introducer. In the process, I removed the sheath as a completely pushed the catheter into the internal jugular vein. I then confirmed adequate placement of the catheter using fluoroscopy. The tip of the catheter was confirmed to be placed in the atriocaval junction. There were no kinks noted throughout the trajectory of the catheter. I then proceeded to test the port and was satisfied with its functionality. I proceeded to flushed the catheter without any issues. I then hep-locked the port. Skin was closed using deep dermal 3-0 Vicryl, subcuticular 4-0 Monocryl, and Dermabond. Patient was then transferred to PACU without any complications. Condition: floor Dispostion: home
--- NOTE | 2024-01-05 16:40 | ANE.PACU2 ---
Inpatient post-anesthesia follow up: Airway intact: Yes Vital signs: Temperature 97.5 F Pulse Rate 117 Respiratory Rate 18 Blood Pressure 115/80 Pulse Oximetry 94 Oxygen Delivery Me thod Room Air Oxygen Flow Rate 3 Fraction of Inspir ed Oxygen Hydration adequate: Yes Nausea and vomiting: No Pain level: 1 Mental status: Baseline
== END | disposition home or self-care (01) ==
PROVIDERS: PCP Family Medicine; Visit Provider Student in an Organized Health Care Education/Training Program
PROC: (CPT 36561; principal; 2024-01-05 13:20)
DX: C85.90 Non-Hodgkin lymphoma, unspecified, unspecified site (principal); G47.33 Obstructive sleep apnea (adult) (pediatric); I48.91 Unspecified atrial fibrillation; I10 Essential (primary) hypertension; Z87.891 Personal history of nicotine dependence
CPT/HCPCS: 36561; 77001; C1788; J0330; J0690; J1100; J1644; J2405; J2704; J3010; J3490; J7030

== ENCOUNTER 2024-01-11 12:22 | Outpatient (CLI) | payer MEDICARE, OTHER, SELFPAY ==
[2024-01-11 13:08] LABS: Basophils # 0.1 10^3/uL (0.0-0.1); Basophils % 0.9 %; Eosinophils # 0.2 10^3/uL (0.0-0.8); Eosinophils % 1.4 %; Hematocrit 29.2 % (37-53); Lymphocytes % 34.8 %; Mean Corpuscular HGB Conc 32.2 g/dL (30-55); Mean Corpuscular Hemoglobin 32.5 pg (27-33); Mean Platelet Volume 8.8 fL (7.4-10.4); Monocytes # 0.8 10^3/uL (0.2-0.9); Monocytes % 5.3 %; Neutrophils # 8.16 10^3/uL (1.8-7.7); Neutrophils % 56.3 %; Nucleated Red Blood Cells % 0 %; Platelet Count 136 10^3/cmm (157-399); Red Blood Count 2.89 10^6/uL (3.85-5.65); Red Cell Distribution Width 19.1 % (12.1-15.1); White Blood Count 14.49 10^3/uL (3.29-11.43)
[2024-01-11 13:26] LABS: Alanine Aminotransferase 11 U/L (0-41); Albumin Level 3.5 g/dL (3.5-5.2); Alkaline Phosphatase 135 U/L (40-130); Anion Gap 14.5 (5-19); Aspartate Amino Transferase 17 U/L (0-40); Blood Urea Nitrogen 30 mg/dL (8-23); Calcium 8.9 mg/dL (8.5-10.5); Carbon Dioxide 30 mmol/L (22-29); Chloride 98 mmol/L (98-107); Globulin 4.3 g/dL (1.3-4.6); Glucose 110 mg/dL (65-115); Lactate Dehydrogenase 227 U/L (135-225); Osmolality Calculated 295 mOsm/kg (285-295); Potassium 3.5 mmol/L (3.5-5.1); Sodium 139 mmol/L (136-145); Total Bilirubin 1.2 mg/dL (0.15-1.2); Total Protein 7.8 g/dL (6.6-8.7); Uric Acid 8.1 mg/dL (3.4-7.0)
== END 2024-01-11 12:23 | disposition home or self-care (01) ==
LOC: LAB 12:23
PROVIDERS: PCP Family Medicine; Visit Provider Internal Medicine Medical Oncology
DX: C83.10 Mantle cell lymphoma, unspecified site (principal)
CPT/HCPCS: 80053; 83615; 84550; 85025

== ENCOUNTER 2024-01-13 08:00 | Oncology outpatient (recurring) (ONCR) | payer MEDICARE, OTHER, SELFPAY ==
[2024-01-12] VITALS (9 sets, daily range): BP systolic 108–127; BP diastolic 72–88; PULSE 94–110; RESP 17–18; TEMP 35.8–36.6; O2SAT 93–98
[2024-01-12] MEDS: acetaminophen 325 mg Tablet 650 MG PO (09:39)
[2024-01-12] MEDS: sodium chloride 0.9% 250 ML 75 ML IV (11:47)
[2024-01-12] MEDS: dexamethasone 4 mg/mL INJ 5 mL 12 MG IVP (11:53)
[2024-01-12] MEDS: ondansetron 2 mg/ML SDV 2 mL 8 MG IVP (11:58)
[2024-01-12] MEDS: diphenhydrAMINE 50 mg/mL SDV 1mL 25 MG IVP (12:01)
[2024-01-12] MEDS: SODIUM CHLORIDE 0.9% IV (16:15)
[2024-01-12] MEDS: BENDAMUSTINE IV (16:15)
[2024-01-13 08:13] VITALS: BP 126/77; PULSE 121; RESP 16; TEMP 36.3; O2SAT 97
[2024-01-13] MEDS: sodium chloride 0.9% 250 ML 75 ML IV (08:39)
[2024-01-13] MEDS: palonosetron 0.25 mg/5 mL SDV IVP (08:43)
[2024-01-13] MEDS: dexamethasone 4 mg/mL INJ 5 mL 12 MG IVP (08:44)
[2024-01-13] MEDS: BENDAMUSTINE IV (09:10)
[2024-01-13] MEDS: SODIUM CHLORIDE 0.9% IV (09:10)
[2024-01-13 10:50] VITALS: BP 111/74; PULSE 98; RESP 17; TEMP 35.9; O2SAT 99
== END 2024-01-13 23:59 | disposition home or self-care (01) ==
PROVIDERS: PCP Family Medicine; Visit Provider Internal Medicine Medical Oncology
DX: C83.18 Mantle cell lymphoma, lymph nodes of multiple sites (principal); Z53.9 Procedure and treatment not carried out, unspecified reason; Z51.11 Encounter for antineoplastic chemotherapy; Z79.52 Long term (current) use of systemic steroids; Z79.899 Other long term (current) drug therapy
CPT/HCPCS: 96375; 96413; 96415; 96417; 99205; 99214; J1100; J1200; J2405; J2469; J7040; J7050; J9034; Q5115

== ENCOUNTER → 2024-01-18 08:49 | Outpatient (BNVA) | payer MEDICARE, OTHER, SELFPAY | PROVIDERS: PCP Family Medicine; Visit Provider Student in an Organized Health Care Education/Training Program | DX: C83.10 Mantle cell lymphoma, unspecified site (principal) | CPT/HCPCS: 99214 ==

== ENCOUNTER 2024-01-18 12:54 | Outpatient (CLI) | payer MEDICARE, OTHER, SELFPAY ==
[2024-01-18 13:04] LABS: Basophils # 0.1 10^3/uL (0.0-0.1); Basophils % 0.7 %; Eosinophils # 0.2 10^3/uL (0.0-0.8); Eosinophils % 1.8 %; Hematocrit 30.5 % (37-53); Lymphocytes # 2.3 10^3/uL (0.8-4.8); Mean Corpuscular HGB Conc 33.1 g/dL (30-55); Mean Corpuscular Hemoglobin 33.2 pg (27-33); Mean Corpuscular Volume 100.3 fl (82-101); Mean Platelet Volume 8.7 fL (7.4-10.4); Monocytes # 0.6 10^3/uL (0.2-0.9); Monocytes % 6.8 %; Neutrophils # 5.12 10^3/uL (1.8-7.7); Neutrophils % 61.5 %; Nucleated Red Blood Cells % 0 %; Platelet Count 186 10^3/cmm (157-399); Red Blood Count 3.04 10^6/uL (3.85-5.65); Red Cell Distribution Width 19.2 % (12.1-15.1); White Blood Count 8.33 10^3/uL (3.29-11.43)
[2024-01-18 13:29] LABS: Alanine Aminotransferase 17 U/L (0-41); Albumin Level 3.8 g/dL (3.5-5.2); Alkaline Phosphatase 122 U/L (40-130); Anion Gap 15.1 (5-19); Aspartate Amino Transferase 23 U/L (0-40); Blood Urea Nitrogen 42 mg/dL (8-23); Calcium 9.5 mg/dL (8.5-10.5); Carbon Dioxide 29 mmol/L (22-29); Chloride 95 mmol/L (98-107); Globulin 4.4 g/dL (1.3-4.6); Glucose 120 mg/dL (65-115); Osmolality Calculated 292 mOsm/kg (285-295); Potassium 4.1 mmol/L (3.5-5.1); Sodium 135 mmol/L (136-145); Total Bilirubin 1.2 mg/dL (0.15-1.2); Total Protein 8.2 g/dL (6.6-8.7)
[2024-01-18 13:31] LABS: Slide Review Slide Review Perform
== END 2024-01-18 12:55 | disposition home or self-care (01) ==
LOC: LAB 12:56
PROVIDERS: PCP Family Medicine; Visit Provider Internal Medicine Medical Oncology
DX: C83.10 Mantle cell lymphoma, unspecified site (principal)
CPT/HCPCS: 80053; 85025

== ENCOUNTER 2024-01-25 13:26 | Outpatient (CLI) | payer MEDICARE, OTHER, SELFPAY ==
[2024-01-25 14:09] LABS: Basophils # 0.1 10^3/uL (0.0-0.1); Basophils % 0.9 %; Eosinophils # 0.5 10^3/uL (0.0-0.8); Eosinophils % 7.5 %; Hematocrit 32.4 % (37-53); Lymphocytes # 1.6 10^3/uL (0.8-4.8); Mean Corpuscular HGB Conc 32.4 g/dL (30-55); Mean Corpuscular Hemoglobin 32.5 pg (27-33); Mean Corpuscular Volume 100.3 fl (82-101); Mean Platelet Volume 8.8 fL (7.4-10.4); Monocytes % 15.5 %; Neutrophils # 3.27 10^3/uL (1.8-7.7); Neutrophils % 49.9 %; Nucleated Red Blood Cells % 0 %; Platelet Count 254 10^3/cmm (157-399); Red Blood Count 3.23 10^6/uL (3.85-5.65); White Blood Count 6.56 10^3/uL (3.29-11.43)
[2024-01-25 14:25] LABS: Alanine Aminotransferase 13 U/L (0-41); Albumin Level 3.9 g/dL (3.5-5.2); Alkaline Phosphatase 108 U/L (40-130); Anion Gap 15.4 (5-19); Aspartate Amino Transferase 17 U/L (0-40); Blood Urea Nitrogen 25 mg/dL (8-23); Calcium 8.8 mg/dL (8.5-10.5); Carbon Dioxide 25 mmol/L (22-29); Chloride 102 mmol/L (98-107); Globulin 3.5 g/dL (1.3-4.6); Glucose 117 mg/dL (65-115); Osmolality Calculated 291 mOsm/kg (285-295); Potassium 4.4 mmol/L (3.5-5.1); Sodium 138 mmol/L (136-145); Total Bilirubin 1.1 mg/dL (0.15-1.2); Total Protein 7.4 g/dL (6.6-8.7)
== END 2024-01-25 13:27 | disposition home or self-care (01) ==
LOC: LAB 13:28
PROVIDERS: PCP Family Medicine; Visit Provider Internal Medicine Medical Oncology
DX: C83.10 Mantle cell lymphoma, unspecified site (principal)
CPT/HCPCS: 80053; 85025

== ENCOUNTER 2024-02-01 11:54 | Outpatient (CLI) | payer MEDICARE, OTHER, SELFPAY ==
[2024-02-01 12:18] LABS: Basophils % 1.2 %; Eosinophils # 0.4 10^3/uL (0.0-0.8); Eosinophils % 10.5 %; Lymphocytes # 1.2 10^3/uL (0.8-4.8); Lymphocytes % 34.2 %; Mean Corpuscular Hemoglobin 32.2 pg (27-33); Mean Corpuscular Volume 97.3 fl (82-101); Mean Platelet Volume 8.5 fL (7.4-10.4); Monocytes # 0.6 10^3/uL (0.2-0.9); Monocytes % 17.3 %; Neutrophils # 1.24 10^3/uL (1.8-7.7); Neutrophils % 36.2 %; Nucleated Red Blood Cells % 0 %; Platelet Count 177 10^3/cmm (157-399); Red Blood Count 3.39 10^6/uL (3.85-5.65); Red Cell Distribution Width 16.2 % (12.1-15.1); White Blood Count 3.42 10^3/uL (3.29-11.43)
[2024-02-01 12:36] LABS: Alanine Aminotransferase 14 U/L (0-41); Albumin Level 3.9 g/dL (3.5-5.2); Alkaline Phosphatase 115 U/L (40-130); Anion Gap 14.3 (5-19); Aspartate Amino Transferase 20 U/L (0-40); Blood Urea Nitrogen 23 mg/dL (8-23); Calcium 8.8 mg/dL (8.5-10.5); Carbon Dioxide 25 mmol/L (22-29); Chloride 99 mmol/L (98-107); Globulin 3.6 g/dL (1.3-4.6); Glucose 106 mg/dL (65-115); Osmolality Calculated 282 mOsm/kg (285-295); Potassium 4.3 mmol/L (3.5-5.1); Sodium 134 mmol/L (136-145); Total Bilirubin 1.1 mg/dL (0.15-1.2); Total Protein 7.5 g/dL (6.6-8.7)
== END 2024-02-01 11:55 | disposition home or self-care (01) ==
LOC: LAB 11:56
PROVIDERS: PCP Family Medicine; Visit Provider Internal Medicine Medical Oncology
DX: C83.10 Mantle cell lymphoma, unspecified site (principal)
CPT/HCPCS: 80053; 85025

== ENCOUNTER → 2024-02-08 08:42 | Outpatient (BNVA) | payer MEDICARE, OTHER, SELFPAY | PROVIDERS: PCP Family Medicine; Visit Provider Nurse Practitioner Family | DX: L02.426 Furuncle of left lower limb (principal); L81.4 Other melanin hyperpigmentation; L57.0 Actinic keratosis; L72.0 Epidermal cyst; Z85.828 Personal history of other malignant neoplasm of skin | CPT/HCPCS: 10060; 17000; 99214 ==

== ENCOUNTER → 2024-02-15 08:14 | Outpatient (BNVA) | payer MEDICARE, OTHER, SELFPAY | PROVIDERS: PCP Family Medicine; Visit Provider Nurse Practitioner Family | DX: Z08 Encounter for follow-up examination after completed treatment for malignant neoplasm (principal); Z85.828 Personal history of other malignant neoplasm of skin; D22.4 Melanocytic nevi of scalp and neck; L02.426 Furuncle of left lower limb | CPT/HCPCS: 10060; 99213 ==

== ENCOUNTER 2024-02-16 08:15 | Oncology outpatient (recurring) (ONCR) | payer MEDICARE, OTHER, SELFPAY ==
[2024-02-09 08:43] LABS: Alanine Aminotransferase 18 U/L (0-41); Albumin Level 4.1 g/dL (3.5-5.2); Alkaline Phosphatase 95 U/L (40-130); Anion Gap 13.2 (5-19); Aspartate Amino Transferase 17 U/L (0-40); Blood Urea Nitrogen 24 mg/dL (8-23); Calcium 8.9 mg/dL (8.5-10.5); Carbon Dioxide 24 mmol/L (22-29); Chloride 105 mmol/L (98-107); Creatinine Clr Calc Pharmacy 53.5497; Globulin 3.2 g/dL (1.3-4.6); Glucose 131 mg/dL (65-115); Osmolality Calculated 292 mOsm/kg (285-295); Potassium 4.2 mmol/L (3.5-5.1); Sodium 138 mmol/L (136-145); Total Protein 7.3 g/dL (6.6-8.7)
[2024-02-09 08:49] LABS: Erythrocyte Sedimentation Rate 27 mm/hr (0-10)
[2024-02-09 08:51] LABS: Basophils # 0.1 10^3/uL (0.0-0.1); Basophils % 1.8 %; Eosinophils # 0.6 10^3/uL (0.0-0.8); Eosinophils % 23.5 %; Hematocrit 33.4 % (37-53); Lymphocytes # 1.1 10^3/uL (0.8-4.8); Lymphocytes % 41.2 %; Mean Corpuscular HGB Conc 33.5 g/dL (30-55); Mean Corpuscular Hemoglobin 31.6 pg (27-33); Mean Corpuscular Volume 94.4 fl (82-101); Mean Platelet Volume 8.4 fL (7.4-10.4); Monocytes # 0.6 10^3/uL (0.2-0.9); Monocytes % 23.2 %; Neutrophils % 10.3 %; Nucleated Red Blood Cells % 0 %; Platelet Count 169 10^3/cmm (157-399); Red Blood Count 3.54 10^6/uL (3.85-5.65); Red Cell Distribution Width 15.1 % (12.1-15.1); White Blood Count 2.72 10^3/uL (3.29-11.43)
[2024-02-09 08:55] LABS: Neutrophils # 0.28 10^3/uL (1.8-7.7)
[2024-02-09 09:00] LABS: Alanine Aminotransferase 17 U/L (0-41); Albumin Level 4.1 g/dL (3.5-5.2); Alkaline Phosphatase 94 U/L (40-130); Aspartate Amino Transferase 18 U/L (0-40); C Reactive Protein 3.5 mg/L (0.0-4.9); Creatinine Clr Calc Pharmacy 53.5497; Globulin 3.3 g/dL (1.3-4.6); Total Protein 7.4 g/dL (6.6-8.7)
[2024-02-09] MEDS: filgrastim-sndz 480 mcg/0.8 mL Syringe SUBCUT (09:24)
[2024-02-10] MEDS: filgrastim-sndz 480 mcg/0.8 mL Syringe SUBCUT (09:24)
[2024-02-11 09:18] VITALS: BP 119/79; PULSE 94; RESP 16; TEMP 36.3
[2024-02-11] MEDS: filgrastim-sndz 480 mcg/0.8 mL Syringe SUBCUT (09:20)
[2024-02-16 08:27] LABS: Hematocrit 33.7 % (37-53); Mean Corpuscular HGB Conc 33.5 g/dL (30-55); Mean Corpuscular Hemoglobin 30.9 pg (27-33); Mean Corpuscular Volume 92.1 fl (82-101); Mean Platelet Volume 8.3 fL (7.4-10.4); Platelet Count 164 10^3/cmm (157-399); Red Blood Count 3.66 10^6/uL (3.85-5.65); Red Cell Distribution Width 14.7 % (12.1-15.1); White Blood Count 10.46 10^3/uL (3.29-11.43)
[2024-02-16 08:57] LABS: Slide Review Slide Review Perform
[2024-02-16 09:00] LABS: Absolute Eosinophils 0.8 10^3/cmm (0.0-0.7); Absolute Segmented Neutrophil 6.7 10/cmm (1.6-7.1); Band Neutrophils Absolute 0.5 10^3/cmm (0.0-1.2); Eosinophils 8 %; Lymphocytes 13 %; Monocytes Absolute 0.6 10^3/cmm (0.1-0.6); Segmented Neutrophils 64 %; Total Cells Counted 100 (0-100)
[2024-02-16 09:01] LABS: Absolute Neutrophil 7.2 10^3/cmm (1.4-6.5); Lymphocytes Absolute 1.4 10^3/cmm (1.2-3.4); Platelet Estimate Normal (Normal)
[2024-02-16 09:05] LABS: Alanine Aminotransferase 14 U/L (0-41); Alkaline Phosphatase 96 U/L (40-130); Aspartate Amino Transferase 19 U/L (0-40); Blood Urea Nitrogen 27 mg/dL (8-23); Calcium 9.1 mg/dL (8.5-10.5); Carbon Dioxide 25 mmol/L (22-29); Chloride 100 mmol/L (98-107); Creatinine Clr Calc Pharmacy 45.5438; Globulin 2.7 g/dL (1.3-4.6); Glucose 125 mg/dL (65-115); Lactate Dehydrogenase 220 U/L (135-225); Osmolality Calculated 291 mOsm/kg (285-295); Sodium 137 mmol/L (136-145); Total Protein 6.7 g/dL (6.6-8.7); Uric Acid 7.6 mg/dL (3.4-7.0)
[2024-02-16] MEDS: acetaminophen 325 mg Tablet 650 MG PO (11:28)
[2024-02-16] MEDS: famotidine 20 mg/2 mL INJ 40 MG IVP (11:28)
[2024-02-16] MEDS: sodium chloride 0.9% 250 ML 75 ML IV (11:31)
[2024-02-16] MEDS: ondansetron 2 mg/ML SDV 2 mL 8 MG IVP (11:32)
[2024-02-16] MEDS: dexamethasone 4 mg/mL INJ 5 mL 12 MG IVP (11:35)
[2024-02-16] MEDS: diphenhydrAMINE 50 mg/mL SDV 1mL 25 MG IVP (11:39)
[2024-02-16 12:15] VITALS: BP 150/93; PULSE 73; RESP 16; TEMP 36.3; O2SAT 99
[2024-02-16 12:45] VITALS: BP 135/95; PULSE 68; RESP 16; TEMP 36.2; O2SAT 97
[2024-02-16 13:15] VITALS: BP 129/82; PULSE 75; RESP 16; TEMP 36.5; O2SAT 99
[2024-02-16 13:45] VITALS: BP 138/90; PULSE 69; RESP 16; TEMP 36.3; O2SAT 98
[2024-02-16 14:45] VITALS: BP 125/87; PULSE 82; RESP 16; TEMP 36.3; O2SAT 98
[2024-02-16 16:00] VITALS: BP 147/88; PULSE 74; RESP 16; TEMP 36.3; O2SAT 98
== END 2024-02-16 23:59 | disposition home or self-care (01) ==
PROVIDERS: Internal Medicine Medical Oncology; Internal Medicine Rheumatology; Nurse Practitioner; PCP Family Medicine; Visit Provider Internal Medicine Hematology & Oncology
DX: C83.10 Mantle cell lymphoma, unspecified site (principal); Z53.9 Procedure and treatment not carried out, unspecified reason; D70.1 Agranulocytosis secondary to cancer chemotherapy; T45.1X5A Adverse effect of antineoplastic and immunosuppressive drugs, initial encounter; X58.XXXA Exposure to other specified factors, initial encounter; Z51.12 Encounter for antineoplastic immunotherapy; Z79.891 Long term (current) use of opiate analgesic; Z95.828 Presence of other vascular implants and grafts; Z79.01 Long term (current) use of anticoagulants; Z79.899 Other long term (current) drug therapy
CPT/HCPCS: 80053; 80076; 82565; 83615; 84550; 85007; 85025; 85651; 86140; 93005; 96372; 96375; 96413; 96415; 96417; 99214; 99215; J1100; J1200; J2405; J3490; J7040; J7050; J9034; Q5101; Q5115

== ENCOUNTER 2024-02-17 08:53 | Oncology outpatient (recurring) (ONCR) | payer MEDICARE, OTHER, SELFPAY ==
[2024-02-17 09:26] VITALS: BP 144/90; PULSE 87; TEMP 36.1; O2SAT 97
[2024-02-17] MEDS: dexamethasone 4 mg/mL INJ 5 mL 12 MG IVP (09:37)
[2024-02-17] MEDS: sodium chloride 0.9% 250 ML 75 ML IV (09:37)
[2024-02-17] MEDS: palonosetron 0.25 mg/5 mL SDV IVP (09:37)
[2024-02-17 11:07] VITALS: BP 142/93; PULSE 74; RESP 16; TEMP 36.1; O2SAT 97
[2024-02-17] MEDS: pegfilgrastim 6 mg/0.6 mL Kit (onpro) SUBCUT (11:07)
== END 2024-02-17 23:59 | disposition home or self-care (01) ==
LOC: ONCMED 08:53
PROVIDERS: PCP Family Medicine; Visit Provider Internal Medicine Hematology & Oncology
DX: C83.10 Mantle cell lymphoma, unspecified site (principal); Z51.11 Encounter for antineoplastic chemotherapy; Z79.899 Other long term (current) drug therapy
CPT/HCPCS: 96375; 96377; 96413; J1100; J2469; J2506; J7040; J7050; J9034

== ENCOUNTER 2024-02-23 09:49 | Oncology outpatient (recurring) (ONCR) | payer MEDICARE, OTHER, SELFPAY ==
[2024-02-23 10:22] LABS: Hematocrit 32.4 % (37-53); Mean Corpuscular Hemoglobin 31.4 pg (27-33); Mean Platelet Volume 8.7 fL (7.4-10.4); Platelet Count 155 10^3/cmm (157-399); Red Blood Count 3.41 10^6/uL (3.85-5.65); Red Cell Distribution Width 15.9 % (12.1-15.1); White Blood Count 17.57 10^3/uL (3.29-11.43)
[2024-02-23 10:32] LABS: Alanine Aminotransferase 22 U/L (0-41); Alkaline Phosphatase 174 U/L (40-130); Aspartate Amino Transferase 20 U/L (0-40); Blood Urea Nitrogen 24 mg/dL (8-23); Calcium 8.6 mg/dL (8.5-10.5); Carbon Dioxide 27 mmol/L (22-29); Chloride 101 mmol/L (98-107); Globulin 2.6 g/dL (1.3-4.6); Glucose 157 mg/dL (65-115); Osmolality Calculated 291 mOsm/kg (285-295); Sodium 137 mmol/L (136-145); Total Bilirubin 0.9 mg/dL (0.15-1.2); Total Protein 6.6 g/dL (6.6-8.7)
[2024-02-23 10:55] LABS: Slide Review Slide Review Perform
[2024-02-23 10:56] LABS: Absolute Eosinophils 0.7 10^3/cmm (0.0-0.7); Absolute Neutrophil 14.8 10^3/cmm (1.4-6.5); Absolute Segmented Neutrophil 13.2 10/cmm (1.6-7.1); Band Neutrophils Absolute 1.6 10^3/cmm (0.0-1.2); Basophils Absolute 0.2 10^3/cmm (0.0-0.2); Eosinophils 4 %; Lymphocytes 2 %; Lymphocytes Absolute 0.5 10^3/cmm (1.2-3.4); Macrocytosis Trace; Monocytes Absolute 1.4 10^3/cmm (0.1-0.6); Platelet Estimate Normal (Normal); Segmented Neutrophils 75 %; Smudge Cells Trace; Total Cells Counted 100 (0-100)
== END 2024-02-24 23:59 | disposition home or self-care (01) ==
LOC: ONCMED 09:49
PROVIDERS: Nurse Practitioner; PCP Family Medicine; Visit Provider Internal Medicine Hematology & Oncology
DX: C83.10 Mantle cell lymphoma, unspecified site (principal)
CPT/HCPCS: 36591; 80053; 85007; 85025

== ENCOUNTER → 2024-02-28 08:44 | Outpatient (BNVA) | payer MEDICARE, OTHER, SELFPAY | PROVIDERS: PCP Family Medicine; Visit Provider Nurse Practitioner Family | DX: L02.426 Furuncle of left lower limb (principal); L57.8 Other skin changes due to chronic exposure to nonionizing radiation; Z85.828 Personal history of other malignant neoplasm of skin | CPT/HCPCS: 99214 ==

== ENCOUNTER 2024-03-15 08:00 | Oncology outpatient (recurring) (ONCR) | payer MEDICARE, OTHER, SELFPAY ==
[2024-03-01 10:03] LABS: Basophils # 0.1 10^3/uL (0.0-0.1); Basophils % 0.7 %; Eosinophils # 0.6 10^3/uL (0.0-0.8); Eosinophils % 4.6 %; Hematocrit 33.3 % (37-53); Lymphocytes # 0.4 10^3/uL (0.8-4.8); Mean Corpuscular HGB Conc 33.3 g/dL (30-55); Mean Corpuscular Hemoglobin 31.4 pg (27-33); Mean Corpuscular Volume 94.3 fl (82-101); Mean Platelet Volume 8.5 fL (7.4-10.4); Monocytes # 0.9 10^3/uL (0.2-0.9); Neutrophils # 10.49 10^3/uL (1.8-7.7); Neutrophils % 83.8 %; Nucleated Red Blood Cells % 0 %; Platelet Count 154 10^3/cmm (157-399); Red Blood Count 3.53 10^6/uL (3.85-5.65); Red Cell Distribution Width 16.4 % (12.1-15.1); White Blood Count 12.51 10^3/uL (3.29-11.43)
[2024-03-01 10:23] LABS: Alanine Aminotransferase 21 U/L (0-41); Albumin Level 4.1 g/dL (3.5-5.2); Alkaline Phosphatase 144 U/L (40-130); Anion Gap 13.2 (5-19); Aspartate Amino Transferase 18 U/L (0-40); Blood Urea Nitrogen 19 mg/dL (8-23); Calcium 8.9 mg/dL (8.5-10.5); Carbon Dioxide 25 mmol/L (22-29); Chloride 104 mmol/L (98-107); Glucose 126 mg/dL (65-115); Osmolality Calculated 290 mOsm/kg (285-295); Potassium 4.2 mmol/L (3.5-5.1); Sodium 138 mmol/L (136-145); Total Bilirubin 1.1 mg/dL (0.15-1.2); Total Protein 6.1 g/dL (6.6-8.7)
[2024-03-08 10:04] LABS: Basophils # 0.1 10^3/uL (0.0-0.1); Basophils % 1.2 %; Eosinophils # 0.6 10^3/uL (0.0-0.8); Eosinophils % 8.9 %; Lymphocytes # 0.4 10^3/uL (0.8-4.8); Lymphocytes % 6.4 %; Mean Corpuscular HGB Conc 34.2 g/dL (30-55); Mean Corpuscular Hemoglobin 31.5 pg (27-33); Mean Corpuscular Volume 91.9 fl (82-101); Mean Platelet Volume 8.4 fL (7.4-10.4); Monocytes # 0.8 10^3/uL (0.2-0.9); Monocytes % 12.9 %; Neutrophils # 4.56 10^3/uL (1.8-7.7); Nucleated Red Blood Cells % 0 %; Platelet Count 179 10^3/cmm (157-399); Red Blood Count 3.59 10^6/uL (3.85-5.65); Red Cell Distribution Width 16.5 % (12.1-15.1); White Blood Count 6.52 10^3/uL (3.29-11.43)
[2024-03-08 10:21] LABS: Alanine Aminotransferase 19 U/L (0-41); Albumin Level 4.2 g/dL (3.5-5.2); Alkaline Phosphatase 106 U/L (40-130); Anion Gap 14.1 (5-19); Aspartate Amino Transferase 22 U/L (0-40); Blood Urea Nitrogen 18 mg/dL (8-23); Calcium 8.8 mg/dL (8.5-10.5); Carbon Dioxide 24 mmol/L (22-29); Chloride 104 mmol/L (98-107); Globulin 2.4 g/dL (1.3-4.6); Glucose 115 mg/dL (65-115); Osmolality Calculated 289 mOsm/kg (285-295); Potassium 4.1 mmol/L (3.5-5.1); Sodium 138 mmol/L (136-145); Total Bilirubin 1.2 mg/dL (0.15-1.2); Total Protein 6.6 g/dL (6.6-8.7)
[2024-03-15 08:13] LABS: Basophils # 0.1 10^3/uL (0.0-0.1); Basophils % 1.7 %; Eosinophils # 0.4 10^3/uL (0.0-0.8); Eosinophils % 6.9 %; Hematocrit 33.8 % (37-53); Lymphocytes # 0.4 10^3/uL (0.8-4.8); Lymphocytes % 7.3 %; Mean Corpuscular Hemoglobin 31.4 pg (27-33); Mean Corpuscular Volume 92.3 fl (82-101); Mean Platelet Volume 8.3 fL (7.4-10.4); Monocytes # 0.7 10^3/uL (0.2-0.9); Monocytes % 11.8 %; Neutrophils # 4.12 10^3/uL (1.8-7.7); Neutrophils % 71.6 %; Nucleated Red Blood Cells % 0 %; Platelet Count 148 10^3/cmm (157-399); Red Blood Count 3.66 10^6/uL (3.85-5.65); White Blood Count 5.76 10^3/uL (3.29-11.43)
[2024-03-15 08:31] LABS: Alanine Aminotransferase 25 U/L (0-41); Albumin Level 4.2 g/dL (3.5-5.2); Alkaline Phosphatase 101 U/L (40-130); Anion Gap 15.8 (5-19); Aspartate Amino Transferase 30 U/L (0-40); Blood Urea Nitrogen 22 mg/dL (8-23); Calcium 8.6 mg/dL (8.5-10.5); Carbon Dioxide 23 mmol/L (22-29); Chloride 105 mmol/L (98-107); Creatinine Clr Calc Pharmacy 59.6607; Globulin 2.5 g/dL (1.3-4.6); Glucose 145 mg/dL (65-115); Lactate Dehydrogenase 254 U/L (135-225); Osmolality Calculated 296 mOsm/kg (285-295); Potassium 3.8 mmol/L (3.5-5.1); Sodium 140 mmol/L (136-145); Total Bilirubin 1.6 mg/dL (0.15-1.2); Total Protein 6.7 g/dL (6.6-8.7)
[2024-03-15] MEDS: sodium chloride 0.9% 250 ML 75 ML IV (10:32)
[2024-03-15] MEDS: dexamethasone 4 mg/mL INJ 5 mL 12 MG IVP (10:33)
[2024-03-15] MEDS: acetaminophen 325 mg Tablet 650 MG PO (10:35)
[2024-03-15] MEDS: diphenhydrAMINE 50 mg/mL SDV 1mL 25 MG IVP (10:39)
[2024-03-15] MEDS: ondansetron 2 mg/ML SDV 2 mL 8 MG IVP (10:41)
[2024-03-15] MEDS: famotidine 20 mg/2 mL INJ 40 MG IVP (10:45)
[2024-03-15 11:00] VITALS: BP 128/71; PULSE 83; RESP 18; TEMP 36.6; O2SAT 96
[2024-03-15 11:30] VITALS: BP 124/84; PULSE 69; RESP 18; TEMP 36.8; O2SAT 96
[2024-03-15 12:00] VITALS: BP 134/87; PULSE 79; RESP 18; TEMP 36.7; O2SAT 96
[2024-03-15 12:40] VITALS: BP 124/81; PULSE 75; RESP 18; TEMP 36.6
[2024-03-15 13:00] VITALS: BP 124/81; PULSE 75; RESP 18; TEMP 36.6; O2SAT 98
[2024-03-15] MEDS: SODIUM CHLORIDE 0.9% IV (13:36)
[2024-03-15] MEDS: BENDAMUSTINE IV (13:36)
[2024-03-15 15:10] VITALS: BP 142/88; PULSE 83; RESP 17; TEMP 36.1; O2SAT 96
== END 2024-03-15 23:59 | disposition home or self-care (01) ==
PROVIDERS: Nurse Practitioner; PCP Family Medicine; Visit Provider Internal Medicine
DX: C83.18 Mantle cell lymphoma, lymph nodes of multiple sites (principal); Z53.9 Procedure and treatment not carried out, unspecified reason; Z51.11 Encounter for antineoplastic chemotherapy; Z51.12 Encounter for antineoplastic immunotherapy; Z95.828 Presence of other vascular implants and grafts; Z79.52 Long term (current) use of systemic steroids; Z79.899 Other long term (current) drug therapy; Z87.891 Personal history of nicotine dependence; D70.1 Agranulocytosis secondary to cancer chemotherapy; T45.1X5A Adverse effect of antineoplastic and immunosuppressive drugs, initial encounter
CPT/HCPCS: 36591; 80053; 83615; 85025; 96368; 96375; 96413; 96415; 99213; J1100; J1200; J2405; J3490; J7040; J7050; J9034; Q5115

== ENCOUNTER 2024-03-16 08:53 | Oncology outpatient (recurring) (ONCR) | payer MEDICARE, OTHER, SELFPAY ==
[2024-03-16 09:18] VITALS: BP 126/82; PULSE 93; RESP 18; TEMP 36.6; O2SAT 98
[2024-03-16] MEDS: sodium chloride 0.9% 250 ML 75 ML IV (09:19)
[2024-03-16] MEDS: palonosetron 0.25 mg/5 mL SDV IVP (09:20)
[2024-03-16] MEDS: dexamethasone 4 mg/mL INJ 5 mL 12 MG IVP (09:24)
[2024-03-16] MEDS: BENDAMUSTINE IV (09:52)
[2024-03-16] MEDS: SODIUM CHLORIDE 0.9% IV (09:52)
[2024-03-16 11:06] VITALS: BP 140/88; PULSE 80; RESP 18; TEMP 36.6; O2SAT 98
[2024-03-16] MEDS: pegfilgrastim 6 mg/0.6 mL Kit (onpro) SUBCUT (11:09)
== END 2024-03-16 23:59 | disposition home or self-care (01) ==
LOC: ONCMED 08:53
PROVIDERS: PCP Family Medicine; Visit Provider Internal Medicine
DX: C83.10 Mantle cell lymphoma, unspecified site (principal); Z51.11 Encounter for antineoplastic chemotherapy; Z79.899 Other long term (current) drug therapy
CPT/HCPCS: 96375; 96377; 96413; J1100; J2469; J2506; J7040; J7050; J9034

== ENCOUNTER 2024-03-30 10:51 | Inpatient (IN) | payer MEDICARE, OTHER, SELFPAY ==
[2024-03-30] VITALS (9 sets, daily range): BP systolic 110–164; BP diastolic 73–109; PULSE 83–149; RESP 18–38; TEMP 37–39.4; O2SAT 90–98; BMI 27.8
--- NOTE | 2024-03-30 10:54 | ECG_ITS ---
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 Measurements Intervals [place] Rate: 143 P: 0 WA: 0 QRS: 52 QRSD: 103 T: 3 QT: 284 QTc: 439 Interpretive Statements ATRIAL FIBRILLATION WITH RAPID VENTRICULAR RESPONSE POSSIBLE ANTERIOR MYOCARDIAL INFARCTION , OF INDETERMINATE AGE [30 ms Q WAVE IN V3/V4, OR R < 0.2 mV IN V4] Compared to ECG 02/11/2024 10:53:17 No significant changes Electronically Signed On 03-30-2024 14:40:01 [facility] [employer] by Reese Rasmussen M.D. [id number]
--- NOTE | 2024-03-30 10:54 | XRR_ITS ---
PROCEDURE INFORMATION: Exam: XR Chest Exam date and time: 03/30/2024 10:56 AM Age: 78 years old Clinical indication: Other: Weakness TECHNIQUE: Imaging protocol: Radiologic exam of the chest. Views: 1 view. COMPARISON: CT abdomen pelvis con [id number] 12/11/2023 5:30 PM FINDINGS: Tubes, catheters and devices: Right-sided chest port catheter terminates over the area of the right atrium. Lungs: Questionable mild bibasilar atelectasis versus artifact. No evidence of large focal consolidation. Pleural spaces: No large pleural effusion. No distinct pneumothorax. Heart/Mediastinum: Cardiomediastinal silhouette is midline and normal in size. Vasculature: Calcific disease of the aortic knob. Bones/joints: No acute osseous findings. XR/XR chest 1V portable [id number] IMPRESSION: Questionable mild bibasilar atelectasis versus artifact. No evidence of large focal consolidation.
--- NOTE | 2024-03-30 11:10 | ED_ITS ---
HPI - Weakness 2 General: Chief complaint: Weakness Stated complaint: weakness Time Seen by Provider: 03/30/24 10:55 Source: patient and EMS Mode of arrival: EMS Limitations: no limitations History of Present Illness: 78-year-old male history of lymphoma sta arden he is not currently on chemo states that last 2 days has been having fevers body aches and feeling generally weak he denies any cough denies any vomiting or diarrhea. Denies any pain anywhere besides the generalized bodyaches. EMS states his temp was 101. Blood pressures been normal Associated symptoms: Reports chills and fever(s); Denies chest pain, dysuria, headache(s), nausea or vomiting Review of Systems 2 Const: Reports: fever(s), chills and body aches; Denies: change in appetite ENMT: Denies: throat pain or dental pain Card: Denies: chest pain Resp: Denies: dyspnea GI: Denies: abdominal pain, nausea, vomiting or diarrhea : Denies: dysuria Musc: Denies: neck pain or back pain Skin/Breast: Denies: rash Neuro: Denies: headache(s) PFSH ED 2 PFSH: Medical History Port-A-Cath in place Dr Joshua Mantle cell lymphoma Tricuspid regurgitation Obstructive sleep apnea Anticoagulation adequate Immunization counseling Seropositive rheumatoid arthritis of multiple sites Atrial fibrillation Hypertension High risk medication use Encounter for screening for other viral diseases Rheumatoid arthritis with rheumatoid factor Surgical History H/O bilateral cataract extraction S/P hernia repair Family History Mother Uterine cancer Father Leukemia Son Chronic kidney disease (CKD) Lupus (systemic lupus erythematosus) Brother Lung cancer Brother Leukemia Sister Leukemia Daughter Antiphospholipid syndrome Other Diabetes Hypertension Denies family history of Rheumatoid arthritis Lupus CAD (coronary artery disease) Clotting disorder Dementia Suicide Anesthesia complication Bleeding disorder Stroke Social History Smoking and tobacco/nicotine status: unknown if used tobacco/nicotine Quit status (tobacco/nicotine): has quit using Former quit date comment: He smoked in the past but quit at least 60 years ago. Alcohol intake: never Substance/Drug Use: never Physical Exam 2 Const: COMMON NORMALS: no acute distress and patient oriented x3 HENMT: COMMON NORMALS: normocephalic and atraumatic HEAD & SCALP: n ormocephalic and atraumatic Eye: COMMON NORMALS: Equal, round and reactive pupils present and EOMs intact bilaterally PUPIL: Yes Equal, round and reactive pupils present Neck/C-Spine: COMMON NORMALS: full ROM and supple Chest: COMMONS NORMALS: normal inspection of the chest Resp: COMMON NORMALS: normal respiratory effort, No retractions, No use of accessory muscles and clear to auscultation bilaterally AUSCULTATION: clear to auscultation bilaterally Cardio: COMMON NORMALS: No murmurs present (Cardio) RATE: tachycardic R HYTHM: abnormal rhythm irregularly irregular GI: COMMON NORMALS: Normal to inspection, nondistended, normoactive bowel sounds present, Soft to palpation, non-tender and no masses PALPATION: Yes Soft to palpation Extremity: COMMON NORMALS: normal to inspection and full ROM Neuro: COMMON NORMALS: patient oriented x3, moves all extremities and no focal motor deficits Psych: COMMON NORMALS: mental status grossly normal, Normal thought process present and cooperative THOUGHT PROCESS: Normal thought process present Skin: COMMON NORMALS: no rashes or lesions noted and no wounds GENERAL SKIN EXAM: no rashes or lesions noted Course 2 Vital Signs: Vital signs: Vital Signs Temperature 99.1 F 03/30/24 10:58 Pulse Rate 106 H 03/30/24 12:03 Respiratory Rate 38 H 03/30/24 11:33 Blood Pressure 122/77 03/30/24 12:03 Pulse Oximetry 93 03/30/24 12:03 Oxygen Delivery Me thod Room Air 03/30/24 12:03 MDM - Weakness Medical Decision Making Patient presents here with fever and had a fever of 101 he does have an elevated white count here as well did give him sepsis fluid bolus did start him on antibiotics blood cultures are drawn. He was in A-fib with RVR his heart rate improving here I spoke to the hospitalist will admit Medical Records I reviewed the patient's medical records. Lab Data I reviewed the patient's lab results. 03/30/24 11:05 03/30/24 11:05 Radiology Impressions Chest X-Ray 03/30/24 10:54 IMPRESSION: Questionable mild bibasilar atelectasis versus artifact. No evidence of large focal consolidation. Laboratory Results WBC 23.26 10^3/uL (3.29-11.43) H 03/30/24 11:05 RBC 3.97 10^6/uL (3.85-5.65) 03/30/24 11:05 Hgb 12.70 g/dL (11.27-16.99) 03/30/24 11:05 Hct 37.5 % (37-53) 03/30/24 11:05 MCV 94.5 fl (82-101) 03/30/24 11:05 MCH 32.0 pg (27-33) 03/30/24 11:05 MCHC 33.9 g/dL (30-55) 03/30/24 11:05 RDW 17.0 % (12.1-15.1) H 03/30/24 11:05 Plt Count 154 10^3/cmm (157-399) L 03/30/24 11:05 MPV 8.3 fL (7.4-10.4) 03/30/24 11:05 Neut % (Auto) 87.5 % 03/30/24 11:05 Lymph % (Auto) 5.4 % 03/30/24 11:05 [place] % (Auto) 3.7 % 03/30/24 11:05 Eos % (Auto) 0.3 % 03/30/24 11:05 Baso % (Auto) 0.3 % 03/30/24 11:05 Neut # (Auto) 20.35 10^3/uL (1.8-7.7) H 03/30/24 11:05 Lymph # (Auto) 1.3 10^3/uL (0.8-4.8) 03/30/24 11:05 [place] # (Auto) 0.9 10^3/uL (0.2-0.9) 03/30/24 11:05 Eos # (Auto) 0.1 10^3/uL (0.0-0.8) 03/30/24 11:05 Baso # (Auto) 0.1 10^3/uL (0.0-0.1) 03/30/24 11:05 Nucleated RBC % (auto) 0 % 03/30/24 11:05 Nucleated RBCs # 0.0 /100WBC 03/30/24 11:05 PT 18.70 SECONDS (12.1-14.9) H 03/30/24 11:05 INR 1.50 (0.8-1.2) H 03/30/24 11:05 Sodium 136 mmol/L (136-145) 03/30/24 11:05 Potassium 4.3 mmol/L (3.5-5.1) 03/30/24 11:05 Chloride 99 mmol/L (98-107) 03/30/24 11:05 Carbon Dioxide 24 mmol/L (22-29) 03/30/24 11:05 Anion Gap 17.3 (5-19) 03/30/24 11:05 BUN 16 mg/dL (8-23) 03/30/24 11:05 Creatinine 1.2 mg/dL (0.7-1.2) 03/30/24 11:05 GFR Calculation Not Reportable 03/30/24 11:05 Glucose 136 mg/dL (65-115) H 03/30/24 11:05 Calculated Osmolality 285 mOsm/kg (285-295) 03/30/24 11:05 Lactic Acid 2.5 mmol/L (0.5-2.2) H 03/30/24 11:05 Calcium 9.6 mg/dL (8.5-10.5) 03/30/24 11:05 Magnesium 1.4 mg/dL (1.7-2.3) L 03/30/24 11:05 Total Bilirubin 1.8 mg/dL (0.15-1.2) H 03/30/24 11:05 AST 18 U/L (0-40) 03/30/24 11:05 ALT 14 U/L (0-41) 03/30/24 11:05 Alkaline Phosphatase 148 U/L (40-130) H 03/30/24 11:05 Total Protein 7.3 g/dL (6.6-8.7) 03/30/24 11:05 Albumin 4.1 g/dL (3.5-5.2) 03/30/24 11:05 Globulin 3.2 g/dL (1.3-4.6) 03/30/24 11:05 TSH 2.26 uIU/mL (0.27-4.20) 03/30/24 11:05 Urine Color Yellow (Yellow) 03/30/24 11:35 Urine Appearance Error (CLEAR) A 03/30/24 11:35 Urine pH 5.0 (5-7) 03/30/24 11:35 Ur Specific [place] 1.019 (1.005-1.030) 03/30/24 11:35 Urine Protein 3+ (Negative) A 03/30/24 11:35 Urine Glucose (UA) Negative (Normal) 03/30/24 11:35 Urine Ketones Negative (Negative) 03/30/24 11:35 Urine Blood Trace (Negative) A 03/30/24 11:35 Urine Nitrate Negative (Negative) 03/30/24 11:35 Urine Bilirubin Negative (Negative) 03/30/24 11:35 Urine Urobilinogen 1.0 mg/dL (Negative) 03/30/24 11:35 Ur Leukocyte Esterase Negative (Negative) 03/30/24 11:35 Urine RBC 0-2 /hpf (0-2) 03/30/24 11:35 Urine WBC 0-5 /hpf (0-5) 03/30/24 11:35 Ur Squamous Epith Cells 0-5 /hpf (0-5) 03/30/24 11:35 Amorphous Sediment Not Reportable 03/30/24 11:35 Urine Bacteria None seen /hpf (NONE) 03/30/24 11:35 Hyaline Casts 2.87 /lpf 03/30/24 11:35 Coronavirus (PCR) Negative (Negative) 03/30/24 11:15 Influenza A (PCR) Negative (Negative) 03/30/24 11:15 Influenza Type B (PCR) Negative (Negative) 03/30/24 11:15 RSV (PCR) Negative (Negative) 03/30/24 11:15 All radiology interpretation(s) finalized by discharge Discharge Plan Discharge Patient Disposition: Admitted As Inpatient Clinical Impression: Mantle cell lymphoma, Fever, Atrial fibrillation with RVR Condition: Stable Coding Level of Care Code ED 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 Chg Fwd Related Data Home Medications Medication Instructions Recorded Confirmed glucosamine HCl 1,500 mg tablet 1,500 mg PO DAILY 06/06/19 03/30/24 cholecalciferol (vitamin D3) 25 25 mcg PO DAILY 03/27/21 03/30/24 mcg (1,000 unit) capsule loperamide 2 mg capsule 2 mg PO DAILY PRN Diarrhea 12/31/23 03/30/24 ondansetron 4 mg disintegrating 4 mg PO 2XD PRN Nausea And Vomiting 12/31/23 03/30/24 tablet metoprolol succinate 100 mg 100 mg PO DAILY 01/04/24 03/30/24 tablet,extended release 24 hr Previous Rx's Medication Instructions Recorded C-pap mask, cushions, head set #1 ea 12/30/21 folic acid 1 mg tablet 1 mg PO DAILY #90 tabs 05/03/23 simvastatin 20 mg tablet 20 mg PO DAILY #90 tabs 08/04/23 apixaban 5 mg tablet (Eliquis) 5 mg PO BID #180 tabs 11/08/23 bumetanide 2 mg tablet 2 mg PO DAILY #30 tabs 12/31/23 hydrocortisone 2.5 % topical cream 1 applic [place] DAILY PRN hemorrhoids 12/31/23 with perineal applicator #30 grams (Procto-Med HC) potassium chloride 10 mEq 10 meq PO BID #60 caps 12/31/23 capsule,extended release allopurinol 300 mg tablet 300 mg PO DAILY #30 tabs 01/12/24 valacyclovir 500 mg tablet 500 mg PO DAILY #30 tabs 02/25/24 ciprofloxacin HCl 500 mg tablet 500 mg PO BID #10 tabs 03/30/24 diltiazem HCl 60 mg 60 mg PO BID #60 caps 03/30/24 capsule,extended release 12 hr Allergies Allergy/AdvReac Type Severity Reaction Status Date / Time No Known Allergies Allergy Verified 03/15/24 08:12
[2024-03-30 11:20] LABS: Basophils # 0.1 10^3/uL (0.0-0.1); Basophils % 0.3 %; Eosinophils # 0.1 10^3/uL (0.0-0.8); Eosinophils % 0.3 %; Hematocrit 37.5 % (37-53); Lymphocytes # 1.3 10^3/uL (0.8-4.8); Lymphocytes % 5.4 %; Mean Corpuscular HGB Conc 33.9 g/dL (30-55); Mean Corpuscular Volume 94.5 fl (82-101); Mean Platelet Volume 8.3 fL (7.4-10.4); Monocytes # 0.9 10^3/uL (0.2-0.9); Monocytes % 3.7 %; Neutrophils # 20.35 10^3/uL (1.8-7.7); Neutrophils % 87.5 %; Nucleated Red Blood Cells % 0 %; Platelet Count 154 10^3/cmm (157-399); Red Blood Count 3.97 10^6/uL (3.85-5.65); White Blood Count 23.26 10^3/uL (3.29-11.43)
[2024-03-30] MEDS: acetaminophen 325 mg Tablet 650 MG PO ×2 (11:26→17:54)
[2024-03-30 11:32] LABS: Lactic Sepsis W/Reflex 2.5 mmol/L (0.5-2.2)
[2024-03-30] MEDS: dilTIAZem 5 mg/mL SDV 5 mL 10 MG IVP (11:35)
[2024-03-30] MEDS: sodium chloride 0.9% 1,000 ML 999 ML IV ×2 (11:36→12:26)
[2024-03-30 11:43] LABS: Alanine Aminotransferase 14 U/L (0-41); Albumin Level 4.1 g/dL (3.5-5.2); Alkaline Phosphatase 148 U/L (40-130); Anion Gap 17.3 (5-19); Aspartate Amino Transferase 18 U/L (0-40); Blood Urea Nitrogen 16 mg/dL (8-23); Calcium 9.6 mg/dL (8.5-10.5); Carbon Dioxide 24 mmol/L (22-29); Chloride 99 mmol/L (98-107); Creatinine Clr Calc Pharmacy 49.9692; Globulin 3.2 g/dL (1.3-4.6); Glucose 136 mg/dL (65-115); Magnesium 1.4 mg/dL (1.7-2.3); Osmolality Calculated 285 mOsm/kg (285-295); Potassium 4.3 mmol/L (3.5-5.1); Sodium 136 mmol/L (136-145); Thyroid Stimulating Hormone 2.26 uIU/mL (0.27-4.20); Total Bilirubin 1.8 mg/dL (0.15-1.2); Total Protein 7.3 g/dL (6.6-8.7)
[2024-03-30 11:51] LABS: Bacteria Urine None Seen /hpf; Hyaline Casts Urine 2.87 /lpf; RBC Urine 0-2 /hpf (0-2); Squamous Epithelial Cell Urine 0-5 /hpf (0-5); WBC Urine 0-5 /hpf (0-5)
[2024-03-30 11:56] LABS: Add Urine Microscopic? YES; Bilirubin Urine Negative (Negative); Blood Urine Trace (Negative); Glucose Urine UA Negative (Normal); Ketones Urine Negative (Negative); Leukocyte Esterase Urine Negative (Negative); Nitrate Urine Negative (Negative); Protein Urine 3+ (Negative); Specific Gravity, Urine 1.019 (1.005-1.030); Urine Appearance Error (CLEAR); Urine Color Yellow (Yellow)
[2024-03-30 12:05] LABS: Covid PCR NEGATIVE (Negative); Influenza A NEGATIVE (Negative); Influenza B NEGATIVE (Negative); Respiratory Syncytial Virus Ce NEGATIVE (Negative)
[2024-03-30] MEDS: sodium chloride 0.9% 500 ML 999 ML IV (12:26)
[2024-03-30] MEDS: VANCOMYCIN ADD-Vantage 1,000 MG in 0.9% NaCl ADD-Vantage 250 ML 250 MG IV (12:26)
[2024-03-30] MEDS: piperacillin-tazobactam 3.375 GM in sodium chloride 0.9% (plus) 50 ML IV ×2 (12:26→17:54)
--- NOTE | 2024-03-30 12:37 | US_ITS ---
WS: [id number] RIGHT UPPER QUADRANT ULTRASOUND HISTORY: hyperbili, sepsis COMPARISON: None available. Liver: 15.3 cm in length. Normal size liver and echogenicity. No bile duct dilatation or mass. Portal Vein: Normal hepatopetal flow with monophasic waveform. Gallbladder: Nondistended gallbladder. No stones identified. Gallbladder wall is mildly prominent but there is no fluid. CBD: 0.4 cm Pancreas: Only a small portion of the body is identified. Head and tail are obscured by bowel gas. Right kidney: 9.8 cm in length. Normal size kidney. Low-attenuation mass from the medial kidney measu res 2.3 x 2.2 cm. This is noted to be a cyst on a recent CT. Aorta and IVC: Unremarkable abdominal aorta and IVC. Small RIGHT pleural effusion. No ascites. US/US gall bladder [id number] IMPRESSION: 1. Normal common bile duct. 2. No cholelithiasis or pericholecystic fluid. Gallbladder wall is diffusely a nd mildly thickened up to 5 mm. This may be due to systemic disease or hepatobi liary disease. Less likely acute cholecystitis. 3. RIGHT hepatic cyst.
--- NOTE | 2024-03-30 12:50 | PC.PHAR ---
[facility] Main-pt gets Eliquis 5mg bid and Folic Acid 1mg on 340B. Per [facility] list-pt stopped taking the following: Amlodipine 10mg, Furosemide 40mg, Isosorbide Mononitrate ER 30mg, Lisinopril 20mg, Methotrexate 2.5mg, Potassium Chl. 10meq, and Prednisone 10mg.(removed from chart). Per Gary Beltran sent over Cipro 500mg bid today.
[2024-03-30 13:00] LABS: Reflex Lactate Order REFLEX LACTIC ORDERD
--- NOTE | 2024-03-30 13:07 | PM.HP ---
Providers/Chief Complaint Primary Care Provider: Agustin Beltran MD Chief Complaint: weakness History of Present Illness Pleasant 78-year-old gentleman with history of lymphoma, inbetween cycles of chemotherapy, has a Port-A-Cath since November, with history of atrial fibrillation, hypertension, on anticoagulation with Eliquis, on Cardizem, Toprol, RA, presented due to malaise, body aches, over the last several days, fever up to 101 at home, apart from the systemic symptoms did not notice any other specific new issues. Family noticed that he may have been mildly confused in the last day as well. In ER he is found with leukocytosis 23.26, A-fib with RVR 160s, respiratory rate 18-38, temp 99.3. Unremarkable urinalysis. Chest x-ray with questionable mild bibasilar atelectasis versus artifact. No evidence of large focal consolidation. Coronavirus, influenza, RSV viral panel negative. Lactic acid 2.5. T. bili 1.8, alk phos 148, normal transaminases. Magnesium 1.4. Glucose 136. INR 1.5. Heart rate 113 after receiving 10 mg IV push of Cardizem. Review of Systems Const: Reports: fever(s), chills, body aches and malaise ENMT: Denies: throat pain, oral sores or ear or mastoid pain Card: Denies: chest pain, edema, pre-syncope or dyspnea on exertion Resp: Denies: dyspnea, productive cough, change in phlegm color or hemoptysis GI: Denies: abdominal pain, nausea, vomiting, diarrhea, constipation, hematochezia or melena : Denies: flank pain, difficulty urinating, urinary frequency or hematuria Musc: Denies: back pain, joint swelling or joint redness Skin/Breast: Reports: other (No redness, swelling, tenderness or other issues with right chest port.); Denies: rash or new lesions Neuro: Denies: headache(s) or dizziness Medications/Allergies Home Medications Medication Instructions Recorded Confirmed Last Taken Type glucosamine HCl 1,500 mg tablet 1,500 mg PO DAILY 06/06/19 03/30/24 03/30/24 History cholecalciferol (vitamin D3) 25 25 mcg PO DAILY 03/27/21 03/30/24 03/30/24 History mcg (1,000 unit) capsule C-pap mask, cushions, head set #1 ea 12/30/21 03/30/24 Unknown Rx folic acid 1 mg tablet 1 mg PO DAILY #90 tabs 05/03/23 03/30/24 03/30/24 Rx simvastatin 20 mg tablet 20 mg PO DAILY #90 tabs 08/04/23 03/30/24 03/30/24 Rx apixaban 5 mg tablet (Eliquis) 5 mg PO BID #180 tabs 11/08/23 03/30/24 03/30/24 Rx hydrocortisone 2.5 % topical cream 1 applic [place] DAILY PRN hemorrhoids 12/31/23 03/30/24 Unknown Rx with perineal applicator #30 grams (Procto-Med HC) loperamide 2 mg capsule 2 mg PO DAILY PRN Diarrhea 12/31/23 03/30/24 Unknown History ondansetron 4 mg disintegrating 4 mg PO BID PRN Nausea And Vomiting 12/31/23 03/30/24 Unknown History tablet metoprolol succinate 100 mg 50 mg PO DAILY 01/04/24 03/30/24 03/29/24 History tablet,extended release 24 hr valacyclovir 500 mg tablet 500 mg PO DAILY #30 tabs 02/25/24 03/30/24 03/30/24 Rx ciprofloxacin HCl 500 mg tablet 500 mg PO BID #10 tabs 03/30/24 03/30/24 Unknown Rx diltiazem HCl 60 mg 60 mg PO BID #60 caps 03/30/24 03/30/24 03/30/24 Rx capsule,extended release 12 hr Allergies Allergy/AdvReac Type Severity Reaction Status Date / Time No Known Allergies Allergy Verified 03/15/24 08:12 PFSH Acute PFSH: Medical History Port-A-Cath in place Dr Joshua Mantle cell lymphoma Tricuspid regurgitation Obstructive sleep apnea Anticoagulation adequate Immunization counseling Seropositive rheumatoid arthritis of multiple sites Atrial fibrillation Hypertension High risk medication use Encounter for screening for other viral diseases Rheumatoid arthritis with rheumatoid factor Surgical History H/O bilateral cataract extraction S/P hernia repair Family History Mother Uterine cancer Father Leukemia Son Chronic kidney disease (CKD) Lupus (systemic lupus erythematosus) Brother Lung cancer Brother Leukemia Sister Leukemia Daughter Antiphospholipid syndrome Other Diabetes Hypertension Denies family history of Rheumatoid arthritis Lupus CAD (coronary artery disease) Clotting disorder Dementia Suicide Anesthesia complication Bleeding disorder Stroke Social History Smoking and tobacco/nicotine status: unknown if used tobacco/nicotine Quit status (tobacco/nicotine): has quit using Former quit date comment: He smoked in the past but quit at least 60 years ago. Alcohol intake: never Substance/Drug Use: never Vitals/I&O/Wt Last Vital Signs Temp 99.1 F 03/30/24 10:58 Pulse 112 H 03/30/24 12:30 Resp 38 H 03/30/24 11:33 BP 142/74 03/30/24 12:30 Pulse Ox 90 03/30/24 12:30 O2 Del Method Room Air 03/30/24 12:03 03/29/24 03/30/24 03/30/24 22:59 06:59 14:59 Intake Total 50 / 50 Balance 50 / 50 Weight last 48 hrs Weight 80.739 kg Physical Exam Const: COMMON NORMALS: patient oriented x3 and alert GENERAL APPEARANCE: cooperative ORIENTATION/CONSCIOUSNESS: Yes awake HENMT: COMMON NORMALS: oropharynx normal Neck/C-Spine: COMMON NORMALS: no JVD Chest: OTHER: Right chest port without erythema, swelling or bruising. Has been accessed and functioning. Resp: COMMON NORMALS: normal respiratory effort and clear to auscultation bilaterally AUSCULTATION: clear to auscultation bilaterally Cardio: COMMON NORMALS: no JVD, regular rhythm, S1 normal heart sound present, S2 normal heart sound present and No murmurs present (Cardio) RATE: tachycardic RHYTHM: abnormal rhythm irregularly irregular HEART SOUNDS: S1 normal heart sound present and S2 normal heart sound present GI: COMMON NORMALS: Normal to inspection, nondistended, normoactive bowel sounds present, Soft to palpation and non-tender PALPATION: Yes Soft to palpation Extremity: COMMON NORMALS: no joint enlargement and no pedal edema Neuro: COMMON NORMALS: patient oriented x3 and moves all extremities SENSORIUM/ORIENTATION: Yes alert Skin: COMMON NORMALS: no rashes or lesions noted GENERAL SKIN EXAM: no rashes or lesions noted Sepsis: Is patient septic: Yes Focused sepsis exam performed: Yes Focused sepsis exam: He is awake and alert, keenly responsive. No mottling or cyanosis. Good capillary refill. Date exam was performed: 03/30/24 Time exam was performed: 12:30 Data 03/30/24 11:05 03/30/24 11:05 Micro: Microbiology 03/30/24 12:15 Blood Culture - Preliminary Blood SPECIMEN COLLECTED 03/30/24 12:20 Blood Culture - Preliminary Blood SPECIMEN COLLECTED A&P Assessment and plan (1) Sepsis: Presenting with several days of malaise, body aches, chills, at home fever 101, here leukocytosis 23.26, tachypnea up to 38, tachycardia with A-fib with RVR, lactic acidosis 2.5, INR 1.5, T. bili 1.8, alk phos 148. Reviewed vitals, CBC, CMP, UA, reviewed COVID, influenza, RSV PCR, reviewed chest x-ray, requested gallbladder ultrasound, reviewed, discussed with patient and family. Reviewed ER note, discussed with ER provider. Sepsis with leukocytosis, tachycardia, lactic acidosis, tachypnea, noted atelectasis, possible early pneumonia? On x-ray imaging, though does not have any pneumonia symptoms otherwise apart from tachypnea. Unclear unclear source at this time. Mild hyperbilirubinemia, but without abdominal pain or tenderness on exam, Casey negative. Gallbladder ultrasound with mildly thickened wall, no pericholecystic fluid, no CBD dilation. So far with evaluation exam not suggestive of cholecystitis. Reviewed prior CT scan, noted bladder wall thickening at that point as well. So far without suggestion of Port-A-Cath infection. No erythema, swelling, bruising or other problems with access site. Port-A-Cath has been accessed and is functioning. Blood cultures have been obtained from periphery and port, discussed with [facility], specifically are collected separately and labeled. Follow-up. Will obtain respiratory viral panel. Tomorrow he is scheduled for PET/CT, we will obtain if possible. We discussed lower possibility of resurgence of lymphoma which could have similar presentation, although last time presented with atypical cells, nucleated cells, none of these are seen in auto differential currently. No signs of tumor lysis syndrome. Some appendix abnormality was noted on prior CT reviewed as well. Currently no pain anywhere in the abdomen, it is soft, no periumbilical or right lower quadrant tenderness on exam. Will obtain PET/CT, otherwise discussed consideration of additional abdominal imaging. Continue empirically on Zosyn, vancomycin. Monitor for risk of acute kidney injury with antibiotic combination. Follow-up MRSA PCR. (2) Atrial fibrillation with RVR: A-fib with RVR heart rates up to 160s, received 10 mg IV diltiazem. Heart rate 113. Continue telemetry monitoring. Continue metoprolol, diltiazem. Admitted to CSU. Monitor for risk of bradycardia, hypotension, tachycardia. Replace magnesium. Reviewed TSH. Reviewed potassium. (3) Hypomagnesemia: Replacement requested. Recheck magnesium. (4) Atelectasis: Possible early pneumonia or pneumonia with atypical presentation with immune compromise. Empiric antibiotic coverage with suspected sepsis as above. Obtain bacterial antigens. MRSA PCR. He has not been having cough, no phlegm production. Incentive spirometer is requested. Discussed with him and family. (5) Mantle cell lymphoma: In between chemotherapy cycles. So far has been responding very well to treatment. Has a scheduled PET scan tomorrow morning. With history of tumor lysis syndrome. Plan HTN: Continue diltiazem, metoprolol. Anticoagulation, switch to Lovenox for now while in the hospital. Rheumatoid arthritis: No longer taking methotrexate SHERINE: Has a CPAP at home which she wears intermittently but not as much recently Attestations Medical Necessity Statement*: Admission over 2 midnights is anticipated for assessment management of sepsis, intermittent with immune compromise with underlying lymphoma, between cycles of chemotherapy, A-fib with RVR, additional comorbidities as above. Diagnoses Sepsis A41.9 Atrial fibrillation with RVR I48.91 Hypomagnesemia E83.42 Atelectasis J98.11 Mantle cell lymphoma C83.10
[2024-03-30] MEDS: magnesium sulfate premix 2 GM/50 ML PIGGYBACK IV (13:17)
[2024-03-30 15:17] LABS: Lactic Acid level (Lactate) 3.3 mmol/L (0.5-2.2)
[2024-03-30] MEDS: vancomycin 1,500 MG/300 ML PIGGYBACK 200 MG IV (15:46)
[2024-03-30] MEDS: enoxaparin 80 mg/0.8 mL Syringe SUBCUT (15:46)
[2024-03-30 15:55] LABS: MRSA PCR OZH (swab) NOT DETECTED (Negative)
[2024-03-30 16:33] LABS: Adenovirus Not Detected (NOT DETECT); Chlamydia Pneumoniae Not Detected (NOT DETECT); Coronavirus 229E,HKU1,NL63,OC4 Not Detected (NOT DETECT); Human Metapneumovirus Not Detected (NOT DETECT); Human Rhinovirus/Enterovirus Detected (NOT DETECT); Influenza A Not Detected (NOT DETECT); Influenza A H1 Not Detected (NOT DETECT); Influenza A H1-2009 Not Detected (NOT DETECT); Influenza A H3 Not Detected (NOT DETECT); Influenza B Not Detected (NOT DETECT); Mycoplasma Pneumoniae Not Detected (NOT DETECT); Parainfluenza Virus Type 1 Not Detected (NOT DETECT); Parainfluenza Virus Type 2 Not Detected (NOT DETECT); Parainfluenza Virus Type 3 Not Detected (NOT DETECT); Parainfluenza Virus Type 4 Not Detected (NOT DETECT); Respiratory Syncytial Virus A Not Detected (NOT DETECT); Respiratory Syncytial Virus B Not Detected (NOT DETECT); SARS-COV-2 Not Detected (NOT DETECT)
[2024-03-30] MEDS: dilTIAZem ER (12HR) 60 mg Capsule PO (17:54)
--- NOTE | 2024-03-30 19:24 | PHA.VACGOAL ---
Vancomycin Goal - Goal Vancomycin Goal:: 15-20 mg/L Vancomycin Indication:: Other (SEPSIS) - Therapy Current therapy:: Pip/Tazo Day of therpy:: Day [1]of [] . Actual body weight (kg): 83.915 kg - Data Labs: WBC 23.26 10^3/uL (3.29-11.43) H 03/30/24 11:05 RBC 3.97 10^6/uL (3.85-5.65) 03/30/24 11:05 Hgb 12.70 g/dL (11.27-16.99) 03/30/24 11:05 Hct 37.5 % (37-53) 03/30/24 11:05 MCV 94.5 fl (82-101) 03/30/24 11:05 MCH 32.0 pg (27-33) 03/30/24 11:05 MCHC 33.9 g/dL (30-55) 03/30/24 11:05 RDW 17.0 % (12.1-15.1) H 03/30/24 11:05 Sodium 136 mmol/L (136-145) 03/30/24 11:05 Potassium 4.3 mmol/L (3.5-5.1) 03/30/24 11:05 Chloride 99 mmol/L (98-107) 03/30/24 11:05 Carbon Dioxide 24 mmol/L (22-29) 03/30/24 11:05 Anion Gap 17.3 (5-19) 03/30/24 11:05 BUN 16 mg/dL (8-23) 03/30/24 11:05 Creatinine 1.2 mg/dL (0.7-1.2) 03/30/24 11:05 GFR Calculation Not Reportable 03/30/24 11:05 Treatment plan:: new consult Regimen:: Patient is an 78 year old male that is a new start Vancomycin for Sepsis. Loading dose of 2500 mg administered and a maintenance dose of 500 mg q12h started based on population based Pharmacokinetic Nomogram. Blood and urine cultures ordered. Patient is also on Zosyn 3.375 g q8h. Febrile with Tmax of 103 F. Pharmacy will continue to monitor daily.
[2024-03-30] MEDS: metoprolol tartrate 50 mg Tablet PO (20:28)
[2024-03-30] MEDS: vancomycin 500 MG in sodium chloride 0.9% (plus) 100 ML 200 MG IV (23:45)
[2024-03-31] VITALS (10 sets, daily range): BP systolic 94–110; BP diastolic 56–71; PULSE 83–105; RESP 20–27; TEMP 36.5–37.5; O2SAT 95–98
[2024-03-31] MEDS: piperacillin-tazobactam 3.375 GM in sodium chloride 0.9% (plus) 50 ML IV ×3 (02:56→17:54)
[2024-03-31] MEDS: enoxaparin 80 mg/0.8 mL Syringe SUBCUT ×2 (02:57→15:29)
[2024-03-31 05:50] LABS: Basophils # 0.1 10^3/uL (0.0-0.1); Basophils % 0.4 %; Eosinophils % 0.2 %; Hematocrit 28.2 % (37-53); Lymphocytes # 1.6 10^3/uL (0.8-4.8); Lymphocytes % 6.7 %; Mean Corpuscular HGB Conc 32.6 g/dL (30-55); Mean Corpuscular Hemoglobin 31.8 pg (27-33); Mean Corpuscular Volume 97.6 fl (82-101); Mean Platelet Volume 8.7 fL (7.4-10.4); Monocytes # 0.9 10^3/uL (0.2-0.9); Monocytes % 3.6 %; Neutrophils # 21.12 10^3/uL (1.8-7.7); Neutrophils % 87.6 %; Nucleated Red Blood Cells % 0 %; Platelet Count 127 10^3/cmm (157-399); Red Blood Count 2.89 10^6/uL (3.85-5.65); Red Cell Distribution Width 17.6 % (12.1-15.1); White Blood Count 24.06 10^3/uL (3.29-11.43)
[2024-03-31 06:18] LABS: Alanine Aminotransferase 9 U/L (0-41); Alkaline Phosphatase 96 U/L (40-130); Anion Gap 13.8 (5-19); Aspartate Amino Transferase 11 U/L (0-40); Blood Urea Nitrogen 21 mg/dL (8-23); Calcium 8.3 mg/dL (8.5-10.5); Carbon Dioxide 22 mmol/L (22-29); Chloride 108 mmol/L (98-107); Creatinine Clr Calc Pharmacy 55.4742; Globulin 2.6 g/dL (1.3-4.6); Glucose 127 mg/dL (65-115); Magnesium 1.8 mg/dL (1.7-2.3); Osmolality Calculated 295 mOsm/kg (285-295); Potassium 3.8 mmol/L (3.5-5.1); Sodium 140 mmol/L (136-145); Total Bilirubin 1.9 mg/dL (0.15-1.2); Total Protein 5.6 g/dL (6.6-8.7)
[2024-03-31] MEDS: atorvastatin 40 mg Tablet 20 MG PO (08:40)
[2024-03-31] MEDS: valACYclovir 1,000 mg Tablet 500 MG PO (08:40)
[2024-03-31] MEDS: dilTIAZem ER (12HR) 60 mg Capsule PO ×2 (08:40→17:54)
[2024-03-31] MEDS: metoprolol tartrate 50 mg Tablet PO ×2 (08:47→21:39)
[2024-03-31] MEDS: magnesium sulfate premix 2 GM/50 ML PIGGYBACK IV (09:08)
[2024-03-31] MEDS: vancomycin 500 MG in sodium chloride 0.9% (plus) 100 ML 200 MG IV (11:42)
--- NOTE | 2024-03-31 12:06 | CT_ITS ---
WS: [id number] CT CHEST TECHNIQUE: Noncontrast CT of the chest with coronal and sagittal reformatted images. CLINICAL INFORMATION: Pneumococcal bacteremia. Assess atelectasis/possible pna COMPARISON: None. DLP: 481.[address] scans at [facility] use at least one of these dose optimization techniques: automated e xposure control; mA and/or kV adjustment per patient size (includes targeted exams where dose is matc hed to clinical indication); or iterative reconstruction. FINDINGS: Partial consolidation RIGHT lower lobe with air bronchograms compatible with pneumonia. Tra ce RIGHT pleural fluid. A few patchy infiltrates in the RIGHT lower lobe. Lungs are otherwise well ae rated. Substernal LEFT thyroid nodule similar in appearance to the prior CT. Previously described extensive chest lymphadenopathy has significantly improved compared to 12/01/2023. Numerous residual normal size mediastinal and hilar lymph nodes. Numerous normal sized axillary lymph nodes. Aortic calcification. Coronary calcification. Small esophageal hiatal hernia. Partially visualized improved splenomegaly. Distended stomach with fo od products. Mild thoracic curve. Mild thoracic kyphosis. Cardiomegaly. CT/CT chest wo con [id number] IMPRESSION: Partial consolidation RIGHT lower lobe with air bronchograms compatible with pn eumonia. Tiny RIGHT pleural effusion.
--- NOTE | 2024-03-31 12:33 | PC.SOCIAL ---
IMM Updated Updated pt on IMM. No questions voiced. Provided pt a copy. Initialed, dated, & timed a copy & placed in chart.
[2024-03-31] MEDS: folic acid 1 mg Tablet PO (17:54)
[2024-03-31] MEDS: acetaminophen 325 mg Tablet 650 MG PO (17:59)
--- NOTE | 2024-03-31 20:01 | P.PN_ITS ---
Subjective 2 Subjective: Subjectively today he is feeling better. So far he has had no additional fever recurrence. Malaise with improvement. Denies nausea vomiting or diarrhea. Tolerated breakfast. Vitals/I&O/Wt Last Vital Signs Temp 99.5 F 03/31/24 16:00 Pulse 105 H 03/31/24 16:00 Resp 26 H 03/31/24 11:59 BP 110/67 03/31/24 16:00 Pulse Ox 95 03/31/24 16:00 O2 Del Method Room Air 03/31/24 16:00 O2 Flow Rate 2 03/31/24 09:08 03/31/24 03/31/24 03/31/24 06:59 14:59 22:59 Intake Total 100 / 3780 946.917 / 946.917 17.083 / 964.000 Output Total 450 / 450 200 / 200 225 / 425 Balance -350 / 3330 746.917 / 746.917 -207.917 / 539.000 Weight last 48 hrs Weight 83.915 kg Weight 83.915 kg Weight 80.739 kg Physical Exam 2 Narrative: Accompanied by his family. Const: COMMON NORMALS: patient oriented x3 and alert GENERAL APPEARANCE: c ooperative ORIENTATION/CONSCIOUSNESS: Yes awake HENMT: COMMON NORMALS: oropharynx normal Neck/C-Spine: COMMON NORMALS: no JVD Chest: OTHER: Right chest port without erythema, swelling or bruising. Has been accessed and functioning. Resp: COMMON NORMALS: normal respiratory effort and clear to auscultation bilaterally AUSCULTATION: clear to auscultation bilaterally Cardio: COMMON NORMALS: no JVD, regular rhythm, S1 normal heart sound present, S2 normal heart sound present and No murmurs present (Cardio) RATE: t achycardic RHYTHM: regular rhythm and abnormal rhythm irregularly irregular HEART SOUNDS: S1 normal heart sound present and S2 normal heart sound present GI: COMMON NORMALS: Normal to inspection, nondistended, normoactive bowel sounds present, Soft to palpation and non-tender PALPATION: Yes Soft to palpation Extremity: COMMON NORMALS: no joint enlargement and no pedal edema Neuro: COMMON NORMALS: patient oriented x3 and moves all extremities S ENSORIUM/ORIENTATION: Yes alert Skin: COMMON NORMALS: no rashes or lesions noted GENERAL SKIN EXAM: no rashes or lesions noted Data 03/31/24 05:12 03/31/24 05:12 Micro: Microbiology 03/30/24 12:15 Blood Culture - Preliminary Blood Streptococcus pneumoniae 03/30/24 12:20 Blood Culture - Preliminary Blood NEGATIVE TO DATE 03/30/24 11:35 Legionella Urinary Antigen - Final Urine,Voided Bacterial Antigens - Final A&P Assessment and plan (1) Sepsis: Subjectively today he is feeling slightly better. He is so far not had recurrence of fever, but he is still mildly tachycardic. Reviewed CBC, CMP. Reviewed urine bacterial antigens, urine Legionella antigens, these are negative. Reviewed blood culture, noted +1/4 bottles for Gram positive cocci. Discussed with [facility], the positive culture was obtained from the port. At the same time identification had just come back as strep pneumo. Peripheral culture still pending, so far negative. Discussed with patient and family regarding positive blood culture. Discussed obtaining CT chest, obtained, reviewed, noted pneumonia, trace pleural effusion. It would be rather uncommon for pneumococcal infection of the port, however, will follow-up final culture, follow-up peripheral culture. Obtain additional cultures tomorrow. We will be obtaining infectious ease consultation. Continue to biotics through the port. He will follow-up to make sure he is up-to-date on pneumococcal vaccine. Additionally rhinovirus/enterovirus infection on review of respiratory viral panel. Continue isolation. Discussed with nursing and rehabilitation case coordinator. He was not able to get his PET/CT. We discussed lower possibility of resurgence of lymphoma which could have similar presentation, although last time presented with atypical cells, nucleated cells, none of these are seen in auto differential currently. No signs of tumor lysis syndrome. Some appendix abnormality was noted on prior CT reviewed as well. Currently no pain anywhere in the abdomen, it is soft, no periumbilical or right lower quadrant tenderness on exam. Continue antibiotics. Stop Zosyn, switch to ceftriaxone. Noted negative MRSA PCR. Will stop vancomycin. (2) Atrial fibrillation with RVR: Reviewed heart rates, with improvement. Replace additional magnesium. Continue Cardizem and metoprolol. A-fib with RVR heart rates up to 160s Admitted to CSU. Monitor for risk of bradycardia, hypotension, tachycardia. Replace magnesium. Reviewed TSH. Reviewed potassium. (3) Hypomagnesemia: Additional replacement requested. Recheck magnesium. (4) Atelectasis: With pneumococcal pneumonia complicated with bacteremia as above. Continue antibiotic treatment as above. Encouraged incentive spirometer. (5) Mantle cell lymphoma: In between chemotherapy cycles. So far has been responding very well to treatment. Has a scheduled PET scan tomorrow morning. With history of tumor lysis syndrome. Plan HTN: Continue diltiazem, metoprolol. Anticoagulation, switch to Lovenox for now while in the hospital. Rheumatoid arthritis: No longer taking methotrexate SHERINE: Has a CPAP at home which she wears intermittently but not as much recently Attestations 2 Medical Necessity Statement*: Continue admission for assessment of management of sepsis with complicated pneumonia with pneumococcal bacteremia, rhinovirus, and instrument with immunocompromise with underlying lymphoma, optimization of control of A-fib with RVR. and High MDM includes amount and/or complexity of data reviewed/ordered [ resulted lab(s)/test(s), ordered lab(s)/test(s) and other healthcare professional discussion] as documented Diagnoses Sepsis A41.9 Atrial fibrillation with RVR I48.91 Hypomagnesemia E83.42 Atelectasis J98.11 Mantle cell lymphoma C83.10
[2024-03-31] MEDS: cefTRIAXone 2,000 mg SDV 2000 MG IVP (21:40)
[2024-04-01] VITALS (8 sets, daily range): BP systolic 118–149; BP diastolic 83–108; PULSE 83–111; RESP 19–27; TEMP 36.7–37.2; O2SAT 95–97
[2024-04-01 02:53] LABS: Basophils # 0.1 10^3/uL (0.0-0.1); Basophils % 0.4 %; Eosinophils # 0.4 10^3/uL (0.0-0.8); Eosinophils % 2.2 %; Lymphocytes # 1.3 10^3/uL (0.8-4.8); Lymphocytes % 7.3 %; Mean Corpuscular HGB Conc 32.5 g/dL (30-55); Mean Corpuscular Hemoglobin 31.1 pg (27-33); Mean Corpuscular Volume 95.6 fl (82-101); Mean Platelet Volume 8.9 fL (7.4-10.4); Monocytes # 0.9 10^3/uL (0.2-0.9); Neutrophils # 15.09 10^3/uL (1.8-7.7); Neutrophils % 84.2 %; Nucleated Red Blood Cells % 0 %; Platelet Count 142 10^3/cmm (157-399); Red Blood Count 2.93 10^6/uL (3.85-5.65); Red Cell Distribution Width 17.2 % (12.1-15.1); White Blood Count 17.93 10^3/uL (3.29-11.43)
[2024-04-01 03:06] LABS: Alanine Aminotransferase 10 U/L (0-41); Albumin Level 3.2 g/dL (3.5-5.2); Alkaline Phosphatase 110 U/L (40-130); Anion Gap 11.8 (5-19); Aspartate Amino Transferase 13 U/L (0-40); Blood Urea Nitrogen 24 mg/dL (8-23); Calcium 8.7 mg/dL (8.5-10.5); Carbon Dioxide 23 mmol/L (22-29); Chloride 105 mmol/L (98-107); Creatinine Clr Calc Pharmacy 46.9397; Globulin 2.5 g/dL (1.3-4.6); Glucose 116 mg/dL (65-115); Magnesium 2.1 mg/dL (1.7-2.3); Osmolality Calculated 287 mOsm/kg (285-295); Potassium 3.8 mmol/L (3.5-5.1); Sodium 136 mmol/L (136-145); Total Bilirubin 1.1 mg/dL (0.15-1.2); Total Protein 5.7 g/dL (6.6-8.7)
[2024-04-01] MEDS: enoxaparin 80 mg/0.8 mL Syringe SUBCUT ×2 (03:18→14:55)
--- NOTE | 2024-04-01 09:07 | P.CONIM_ITS ---
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 Currently on chemotherapy with bendamustine/rituximab, LD (cycle 4 of 7) on 03/15/24. last neulasta received on 03/16. Current ANC 15.09. PET/CT is showing improvement in LAD. Incidentally noted multinodular goiter. Chemoport placed RIJ on 01/05/24. Patient was in his usual state of health until 03/29 when he developed high grade fever, lethargy. Fever up to 10 2-1 03 Fahrenheit at home. Visited PCP on 03/30- given prescription for Cipro 500mg BID. Cardizem increased to 60 BID for noted A fib with RVR 120-140. After PCP visit, upon returning home his found him to be confused and somewhat disoriented therefore he was brought into the emergency room via EMS. Admitted here on 03/30 due to AMS, confusion. In ER he is found with leukocytosis 23.26, A-fib with RVR 160s, respiratory rate 18-38, temp 99.3. Started Vanc/ Zosyn empirically Blood cx positive for Strep pneumoniae from 03/30 based on PCR from blood cx bottle. Preliminary culture showing growth of alphahemolytic colonies on plates, pending further identification. Since starting antibiotics patient is clinically improving. He has been afebrile last 24 hours. Leukocytosis is improving down to 17,000. He is complaining of interval development of 2-3 episodes of diarrhea today. He has not noticed any redness swelling or other issues with his port recently. Denies any nausea vomiting. His reports that 2 to 3 days prior to presentation he was complaining of a runny nose Review of Systems 2 General: Reports: 10 or more systems reviewed and unremarkable except in HPI and below Const: Denies: fever(s), chills or body aches Eyes: Denies: change in vision, blurry vision or photophobia ENMT: Reports: hoarseness; Denies: throat pain, enlarged tonsils, odynophagia or nasal congestion Card: Denies: chest pain, palpitations, irregular heart rhythm, edema, swelling of feet/ankles, lightheadedness, pre-syncope, dyspnea on exertion or orthopnea Resp: Denies: dyspnea, productive cough, non-productive cough, wheezing, stridor, pain on inspiration, change in phlegm color, hemoptysis or chest congestion GI: Denies: abdominal pain, nausea, vomiting, hematemesis, coffee ground emesis, dysphagia, heartburn, diarrhea, constipation, GI cramping, change in stool character, hematochezia or melena : Denies: flank pain, dysuria, urinary frequency, urinary urgency, urinary hesitancy or hematuria Musc: Denies: neck pain, back pain, extremity pain, joint swelling, joint warmth or deformity Neuro: Denies: headache(s), numbness in extremities, weakness in extremities, sensory changes, difficulty walking, frequent falls, dizziness, vertigo, behavioral changes, Slurred speech present or seizure-like activity Psych: Denies: anxiety, depression, suicidal ideation or homicidal ideation Endo: Denies: polyuria, polydipsia, tired all the time, cold intolerance or hot flashes Maximo/Lymph: Denies: easy bruising or easy bleeding Medications/Allergies Home Medications Medication Instructions Recorded Confirmed Last Taken Type glucosamine HCl 1,500 mg tablet 1,500 mg PO DAILY 06/06/19 03/30/24 03/30/24 History cholecalciferol (vitamin D3) 25 25 mcg PO DAILY 03/27/21 03/30/24 03/30/24 History mcg (1,000 unit) capsule C-pap mask, cushions, head set #1 ea 12/30/21 03/30/24 Unknown Rx folic acid 1 mg tablet 1 mg PO DAILY #90 tabs 05/03/23 03/30/24 03/30/24 Rx simvastatin 20 mg tablet 20 mg PO DAILY #90 tabs 08/04/23 03/30/24 03/30/24 Rx apixaban 5 mg tablet (Eliquis) 5 mg PO BID #180 tabs 11/08/23 03/30/24 03/30/24 Rx hydrocortisone 2.5 % topical cream 1 applic DE DAILY PRN hemorrhoids 12/31/23 03/30/24 Unknown Rx with perineal applicator #30 grams (Procto-Med HC) loperamide 2 mg capsule 2 mg PO DAILY PRN Diarrhea 12/31/23 03/30/24 Unknown History ondansetron 4 mg disintegrating 4 mg PO BID PRN Nausea And Vomiting 12/31/23 03/30/24 Unknown History tablet metoprolol succinate 100 mg 50 mg PO DAILY 01/04/24 03/30/24 03/29/24 History tablet,extended release 24 hr valacyclovir 500 mg tablet 500 mg PO DAILY #30 tabs 02/25/24 03/30/24 03/30/24 Rx ciprofloxacin HCl 500 mg tablet 500 mg PO BID #10 tabs 03/30/24 03/30/24 Unknown Rx diltiazem HCl 60 mg 60 mg PO BID #60 caps 03/30/24 03/30/24 03/30/24 Rx capsule,extended release 12 hr Allergies Allergy/AdvReac Type Severity Reaction Status Date / Time No Known Allergies Allergy Verified 03/15/24 08:12 Current Medications Generic Name Dose Route Start Last Admin Trade Name Freq PRN Reason Stop Dose Admin Acetaminophen 650 mg 03/30/24 13:55 03/31/24 17:59 Acetaminophen 325 Mg Tablet PO 650 mg Q6H PRN Administration Mild/Mod Pain Or Temp >/= 101 Atorvastatin Calcium 20 mg 03/31/24 09:00 03/31/24 08:40 Atorvastatin 40 Mg Tablet PO 20 mg DAILY ARISTIDES Administration Ceftriaxone Sodium 2,000 mg 03/31/24 20:15 03/31/24 21:40 Ceftriaxone 2,000 Mg Sdv IVP 2,000 mg Q24H ARISTIDES Administration Protocol Diltiazem HCl 60 mg 03/30/24 18:00 03/31/24 17:54 Diltiazem Er (12hr) 60 Mg Capsule PO 60 mg BID ARISTIDES Administration Enoxaparin Sodium 80 mg 03/30/24 14:30 04/01/24 03:18 Enoxaparin 80 Mg/0.8 Ml Syringe SUBCUT 80 mg Q12H ARISTIDES Administration Folic Acid 1 mg 03/31/24 18:00 03/31/24 17:54 Folic Acid 1 Mg Tablet PO 1 mg DAILY ARISTIDES Administration Metoprolol Tartrate 50 mg 03/30/24 21:00 03/31/24 21:39 Metoprolol Tartrate 50 Mg Tablet PO 50 mg BID@0900,2100 ARISTIDES Administration Valacyclovir HCl 500 mg 03/31/24 09:00 03/31/24 08:40 Valacyclovir 1,000 Mg Tablet PO 500 mg DAILY ARISTIDES Administration PFSH Acute 2 PFSH: Medical History Port-A-Cath in place Dr Joshua Mantle cell lymphoma Tricuspid regurgitation Obstructive sleep apnea Anticoagulation adequate Immunization counseling Seropositive rheumatoid arthritis of multiple sites Atrial fibrillation Hypertension High risk medication use Encounter for screening for other viral diseases Rheumatoid arthritis with rheumatoid factor Surgical History H/O bilateral cataract extraction S/P hernia repair Family History Mother Uterine cancer Father Leukemia Son Chronic kidney disease (CKD) Lupus (systemic lupus erythematosus) Brother Lung cancer Brother Leukemia Sister Leukemia Daughter Antiphospholipid syndrome Other Diabetes Hypertension Denies family history of Rheumatoid arthritis Lupus CAD (coronary artery disease) Clotting disorder Dementia Suicide Anesthesia complication Bleeding disorder Stroke Social History Smoking and tobacco/nicotine status: unknown if used tobacco/nicotine Quit status (tobacco/nicotine): has quit using Former quit date comment: He smoked in the past but quit at least 60 years ago. Alcohol intake: never Substance/Drug Use: never Vitals/I&O/Wt Last Vital Signs Temp 98.2 F 04/01/24 07:58 Pulse 105 H 04/01/24 07:58 Resp 22 H 04/01/24 07:58 BP 149/100 04/01/24 07:58 Pulse Ox 96 04/01/24 07:58 O2 Del Method Room Air 04/01/24 07:58 O2 Flow Rate 2 03/31/24 09:08 03/31/24 04/01/24 04/01/24 22:59 06:59 14:59 Intake Total 67.083 / 1014.000 Output Total 425 / 625 320 / 945 Balance -357.917 / 389.000 -320 / 69.000 Weight last 48 hrs Weight 83.915 kg Weight 83.915 kg Weight 83.915 kg Weight 80.739 kg Physical Exam 2 Narrative: General: No acute distress, AO x3 HEENT: PERRLA, pupils bilaterally equal and reactive, pallors not present Chest: Normal vesicular breath sounds, no added sounds, equal good air entry bilaterally CVS: S1-S2 regular, no murmurs, no tachycardia, no gallops, no rubs Abdomen: Soft, nontender, no organomegaly, bowel sounds present Neuro: No focal deficits, no facial deformity, AO x3, power 5/5 in all limbs Data 04/01/24 02:14 04/01/24 02:14 Micro: Microbiology 03/30/24 12:15 Blood Culture - Preliminary Blood Streptococcus pneumoniae 03/30/24 12:20 Blood Culture - Preliminary Blood NEGATIVE TO DATE Other data: Radiology Impressions Chest X-Ray 03/30/24 10:54 IMPRESSION: Questionable mild bibasilar atelectasis versus artifact. No evidence of large focal consolidation. Gallbladder Ultrasound 03/30/24 12:37 IMPRESSION: 1. Normal common bile duct. 2. No cholelithiasis or pericholecystic fluid. Gallbladder wall is diffusely and mildly thickened up to 5 mm. This may be due to systemic disease or hepatobiliary disease. Less likely acute cholecystitis. 3. RIGHT hepatic cyst. Chest CT 03/31/24 12:06 IMPRESSION: Partial consolidation RIGHT lower lobe with air bronchograms compatible with pneumonia. Tiny RIGHT pleural effusion. Laboratory Results WBC 17.93 10^3/uL (3.29-11.43) H 04/01/24 02:14 RBC 2.93 10^6/uL (3.85-5.65) L 04/01/24 02:14 Hgb 9.10 g/dL (11.27-16.99) L 04/01/24 02:14 Hct 28.0 % (37-53) L 04/01/24 02:14 MCV 95.6 fl (82-101) 04/01/24 02:14 MCH 31.1 pg (27-33) 04/01/24 02:14 MCHC 32.5 g/dL (30-55) 04/01/24 02:14 RDW 17.2 % (12.1-15.1) H 04/01/24 02:14 Plt Count 142 10^3/cmm (157-399) L 04/01/24 02:14 MPV 8.9 fL (7.4-10.4) 04/01/24 02:14 Neut % (Auto) 84.2 % 04/01/24 02:14 Lymph % (Auto) 7.3 % 04/01/24 02:14 [place] % (Auto) 5.0 % 04/01/24 02:14 Eos % (Auto) 2.2 % 04/01/24 02:14 Baso % (Auto) 0.4 % 04/01/24 02:14 Neut # (Auto) 15.09 10^3/uL (1.8-7.7) H 04/01/24 02:14 Lymph # (Auto) 1.3 10^3/uL (0.8-4.8) 04/01/24 02:14 [place] # (Auto) 0.9 10^3/uL (0.2-0.9) 04/01/24 02:14 Eos # (Auto) 0.4 10^3/uL (0.0-0.8) 04/01/24 02:14 Baso # (Auto) 0.1 10^3/uL (0.0-0.1) 04/01/24 02:14 Nucleated RBC % (auto) 0 % 04/01/24 02:14 Nucleated RBCs # 0.0 /100WBC 04/01/24 02:14 PT 18.70 SECONDS (12.1-14.9) H 03/30/24 11:05 INR 1.50 (0.8-1.2) H 03/30/24 11:05 Sodium 136 mmol/L (136-145) 04/01/24 02:14 Potassium 3.8 mmol/L (3.5-5.1) 04/01/24 02:14 Chloride 105 mmol/L (98-107) 04/01/24 02:14 Carbon Dioxide 23 mmol/L (22-29) 04/01/24 02:14 Anion Gap 11.8 (5-19) 04/01/24 02:14 BUN 24 mg/dL (8-23) H 04/01/24 02:14 Creatinine 1.3 mg/dL (0.7-1.2) H 04/01/24 02:14 GFR Calculation Not Reportable 04/01/24 02:14 Glucose 116 mg/dL (65-115) H 04/01/24 02:14 Calculated Osmolality 287 mOsm/kg (285-295) 04/01/24 02:14 Lactic Acid 2.5 mmol/L (0.5-2.2) H 03/30/24 11:05 Lactic Acid (Sepsis) 3.3 mmol/L (0.5-2.2) H 03/30/24 14:52 Uric Acid 3.9 mg/dL (3.4-7.0) 04/01/24 02:14 Calcium 8.7 mg/dL (8.5-10.5) 04/01/24 02:14 Magnesium 2.1 mg/dL (1.7-2.3) 04/01/24 02:14 Total Bilirubin 1.1 mg/dL (0.15-1.2) 04/01/24 02:14 AST 13 U/L (0-40) 04/01/24 02:14 ALT 10 U/L (0-41) 04/01/24 02:14 Alkaline Phosphatase 110 U/L (40-130) 04/01/24 02:14 Total Protein 5.7 g/dL (6.6-8.7) L 04/01/24 02:14 Albumin 3.2 g/dL (3.5-5.2) L 04/01/24 02:14 Globulin 2.5 g/dL (1.3-4.6) 04/01/24 02:14 TSH 2.26 uIU/mL (0.27-4.20) 03/30/24 11:05 Urine Color Yellow (Yellow) 03/30/24 11:35 Urine Appearance Error (CLEAR) A 03/30/24 11:35 Urine pH 5.0 (5-7) 03/30/24 11:35 Ur Specific [place] 1.019 (1.005-1.030) 03/30/24 11:35 Urine Protein 3+ (Negative) A 03/30/24 11:35 Urine Glucose (UA) Negative (Normal) 03/30/24 11:35 Urine Ketones Negative (Negative) 03/30/24 11:35 Urine Blood Trace (Negative) A 03/30/24 11:35 Urine Nitrate Negative (Negative) 03/30/24 11:35 Urine Bilirubin Negative (Negative) 03/30/24 11:35 Urine Urobilinogen 1.0 mg/dL (Negative) 03/30/24 11:35 Ur Leukocyte Esterase Negative (Negative) 03/30/24 11:35 Urine RBC 0-2 /hpf (0-2) 03/30/24 11:35 Urine WBC 0-5 /hpf (0-5) 03/30/24 11:35 Ur Squamous Epith Cells 0-5 /hpf (0-5) 03/30/24 11:35 Amorphous Sediment Not Reportable 03/30/24 11:35 Urine Bacteria None seen /hpf (NONE) 03/30/24 11:35 Hyaline Casts 2.87 /lpf 03/30/24 11:35 Nasal MRSA (PCR) Not detected (Negative) 03/30/24 14:08 Adenovirus (PCR) Not detected (NOT DETECT) 03/30/24 14:08 C. pneumoniae DNA (PCR) Not detected (NOT DETECT) 03/30/24 14:08 Coronavirus (PCR) Negative (Negative) 03/30/24 11:15 Coronavirus 229E (PCR) Not detected (NOT DETECT) 03/30/24 14:08 Human Metapneumovir PCR Not detected (NOT DETECT) 03/30/24 14:08 Influenza A (H1) PCR Not detected (NOT DETECT) 03/30/24 14:08 Influenza A (PCR) Negative (Negative) 03/30/24 11:15 Influ A (H1/09) PCR Not detected (NOT DETECT) 03/30/24 14:08 Influenza A (H3) PCR Not detected (NOT DETECT) 03/30/24 14:08 Influenza Type A (PCR) Not detected (NOT DETECT) 03/30/24 14:08 Influenza Type B (PCR) Not detected (NOT DETECT) 03/30/24 14:08 M. pneumoniae (PCR) Not detected (NOT DETECT) 03/30/24 14:08 Parainfluenza 1 (PCR) Not detected (NOT DETECT) 03/30/24 14:08 Parainfluenza 2 (PCR) Not detected (NOT DETECT) 03/30/24 14:08 Parainfluenza 3 (PCR) Not detected (NOT DETECT) 03/30/24 14:08 Parainfluenza 4 (PCR) Not detected (NOT DETECT) 03/30/24 14:08 RSV (PCR) Negative (Negative) 03/30/24 11:15 RSV Type A (PCR) Not detected (NOT DETECT) 03/30/24 14:08 RSV Type B (PCR) Not detected (NOT DETECT) 03/30/24 14:08 Entero/Rhino (PCR) Detected (NOT DETECT) A 03/30/24 14:08 SARS-CoV-2 (PCR) Not detected (NOT DETECT) 03/30/24 14:08 A&P Assessment and plan (1) Disease due to invasive Streptococcus pneumoniae: Invasive streptococcal pneumonia disease by way of bacteremia, likely related to sequelae of community-acquired pneumonia. Blood culture positive for strep pneumo on 03/30/2024 based on direct PCR from a positive blood culture bottle. Awaiting confirmation on cultures and susceptibility testing. Thus far culture plate with alphahemolytic colonies. Per discussion with lab, it appears that the port cultures 1/2 were positive while the peripheral are negative. However this is not clearly marked on the blood culture bottles therefore difficult to to be certain about this. At any rate given that CT of the chest is showing evidence of pneumonia, preceding respiratory symptoms, favor strep pneumo bacteremia to be more likely related to complication of community-acquired pneumonia rather than a primary port site infection. Repeat blood culture ordered today to determine clearance. Patient is showing clinical improvement on antibiotics. Agree with narrowing down from Zosyn/vancomycin to ceftriaxone 2 g IV every 24 hours. Anticipate patient will need at least 2 weeks of IV ceftriaxone, however final selection and duration to be determined upon pending confirmation of isolate on cultures and sensitivity testing. (2) Community acquired pneumonia: Right lower lobe pneumonia as seen on CT imaging Any right pleural effusion without current evidence of any empyema. Likely bacteremia as a complication of the pneumonia. Patient is immunocompromised with certainly puts him at a higher risk of invasive pneumococcal disease. Continue ceftriaxone 2 g IV every 24 hours. Trend leukocytosis, possible that recent administration of filgrastim may lead to some degree of persistent leukocytosis. Currently trend is improving from 23,000-17,000. Patient is currently afebrile over last 24 hours. (3) Diarrhea: 2 episodes of diarrhea today. Check C. difficile PCR. (4) Rhinovirus infection: Tested positive for rhinovirus upon admission. Possibility of acute viral infection complicated by bacterial pneumonia based on clinical progression. Consult Attestations 2 Medical Necessity Statement: Per admitting, invasive pneumococcal disease needs IV antibiotics Coding Level of Care Code Acute Code for Chg Fwd High MDM includes number and complexity of problems actively addressed during encounter, amount and/or complexity of data reviewed/ordered and described risk of complication, morbidity or mortality of management as documented Diagnoses Disease due to invasive Streptococcus pneumoniae A49.1 Community acquired pneumonia J18.9 Diarrhea R19.7 Rhinovirus infection B34.8
[2024-04-01] MEDS: dilTIAZem ER (12HR) 60 mg Capsule PO ×2 (09:23→17:43)
[2024-04-01] MEDS: folic acid 1 mg Tablet PO (09:23)
[2024-04-01] MEDS: valACYclovir 1,000 mg Tablet 500 MG PO (09:23)
[2024-04-01] MEDS: atorvastatin 40 mg Tablet 20 MG PO (09:24)
[2024-04-01] MEDS: metoprolol tartrate 50 mg Tablet PO ×2 (09:24→22:10)
[2024-04-01 10:15] LABS: Uric Acid 3.9 mg/dL (3.4-7.0)
--- NOTE | 2024-04-01 16:41 | P.PN_ITS ---
Subjective 2 Subjective: He is overall feeling better. Without recurrence of fever. Malaise improving. No issues with right chest port. No nausea vomiting or diarrhea. Vitals/I&O/Wt Last Vital Signs Temp 98.0 F 04/01/24 11:33 Pulse 111 H 04/01/24 11:33 Resp 27 H 04/01/24 11:33 BP 135/87 04/01/24 11:33 Pulse Ox 96 04/01/24 11:33 O2 Del Method Room Air 04/01/24 11:33 O2 Flow Rate 2 03/31/24 09:08 04/01/24 04/01/24 04/01/24 06:59 14:59 22:59 Intake Total 360 / 360 Output Total 320 / 945 250 / 250 Balance -320 / 69.000 110 / 110 Weight last 48 hrs Weight 83.915 kg Weight 83.915 kg Physical Exam 2 Narrative: Accompanied by his . Const: COMMON NORMALS: patient oriented x3 and alert GENERAL APPEARANCE: c ooperative ORIENTATION/CONSCIOUSNESS: Yes awake HENMT: COMMON NORMALS: oropharynx normal Neck/C-Spine: COMMON NORMALS: no JVD Chest: OTHER: Right chest port without erythema, swelling or bruising. Accessed and functioning. Resp: COMMON NORMALS: normal respiratory effort and clear to auscultation bilaterally AUSCULTATION: clear to auscultation bilaterally Cardio: COMMON NORMALS: no JVD, regular rhythm, S1 normal heart sound present, S2 normal heart sound present and No murmurs present (Cardio) RATE: t achycardic RHYTHM: regular rhythm and abnormal rhythm irregularly irregular HEART SOUNDS: S1 normal heart sound present and S2 normal heart sound present GI: COMMON NORMALS: Normal to inspection, nondistended, normoactive bowel sounds present, Soft to palpation and non-tender PALPATION: Yes Soft to palpation Extremity: COMMON NORMALS: no joint enlargement and no pedal edema Neuro: COMMON NORMALS: patient oriented x3 and moves all extremities S ENSORIUM/ORIENTATION: Yes alert Skin: COMMON NORMALS: no rashes or lesions noted GENERAL SKIN EXAM: no rashes or lesions noted Data 04/01/24 02:14 04/01/24 02:14 Micro: Microbiology 04/01/24 11:13 Blood Culture - Preliminary Blood SPECIMEN COLLECTED 04/01/24 11:09 Blood Culture - Preliminary Blood SPECIMEN COLLECTED 03/30/24 12:15 Blood Culture - Preliminary Blood Streptococcus pneumoniae 03/30/24 12:20 Blood Culture - Preliminary Blood NEGATIVE TO DATE A&P Assessment and plan (1) Community acquired pneumonia: Complicated by bacteremia. Continue treatment with ceftriaxone. Leukocytosis noted decreasing down to 17.9. No recurrence of fever so far. Tachypnea improving. Trace effusion on CT. (2) Disease due to invasive Streptococcus pneumoniae: Reviewed vitals, CBC, CMP, blood culture. Discussed with patient and his . Discussed with infectious disease specialist. Additional cultures have been obtained. Continue IV antibiotic, follow-up reassessment culture and identification to compare to the PCR result with pneumococcus growing from port culture. Continue ceftriaxone. In case of congruent organism, no further issues, tentative plan would be for 2 weeks of IV antibiotic therapy with ceftriaxone through the port. Appreciate ID consultation. Note reviewed. With reported diarrhea, C. difficile has been requested. (3) Atrial fibrillation with RVR: Worsened heart rates today. Gave additional 25 mg metoprolol dose with improvement. Continue to monitor. Continue metoprolol, Cardizem. Reviewed heart rates, with improvement. Replace additional magnesium. Continue Cardizem and metoprolol. On presentation A-fib with RVR heart rates up to 160s Admitted to [facility]. Monitor for risk of bradycardia, hypotension, tachycardia. Reviewed TSH. Reviewed potassium. Magnesium is okay. (4) Diarrhea: Follow-up C. difficile PCR. (5) Rhinovirus infection: Continue supportive measures, isolation for now. (6) Sepsis: Resolved sepsis. Continue treatment of pneumonia complicated by bacteremia as above. (7) Hypomagnesemia: Reviewed recheck magnesium. (8) Mantle cell lymphoma: In between chemotherapy cycles. So far has been responding very well to treatment. Has a scheduled PET scan tomorrow morning. With history of tumor lysis syndrome. Plan HTN: Continue diltiazem, metoprolol. Anticoagulation, switch to Lovenox for now while in the hospital. Rheumatoid arthritis: No longer taking methotrexate SHERINE: Has a CPAP at home which she wears intermittently but not as much recently Attestations 2 Medical Necessity Statement*: Continue admission for assessment of management of sepsis with complicated pneumonia with pneumococcal bacteremia, rhinovirus, and instrument with immunocompromise with underlying lymphoma, optimization of control of A-fib with RVR. and High MDM includes amount and/or complexity of data reviewed/ordered [ previous or external records, resulted lab(s)/test(s), ordered lab(s)/test(s) and other healthcare professional discussion] as documented Diagnoses Community acquired pneumonia J18.9 Disease due to invasive Streptococcus pneumoniae A49.1 Atrial fibrillation with RVR I48.91 Diarrhea R19.7 Rhinovirus infection B34.8 Sepsis A41.9 Hypomagnesemia E83.42 Mantle cell lymphoma C83.10
[2024-04-01] MEDS: metoprolol tartrate 25 mg Tablet PO (16:55)
[2024-04-01] MEDS: cefTRIAXone 2,000 mg SDV 2000 MG IVP (22:10)
[2024-04-02] VITALS (9 sets, daily range): BP systolic 138–163; BP diastolic 86–105; PULSE 86–116; RESP 13–32; TEMP 36.5–36.9; O2SAT 91–97
[2024-04-02] MEDS: enoxaparin 80 mg/0.8 mL Syringe SUBCUT ×2 (02:46→15:04)
[2024-04-02 05:29] LABS: Basophils # 0.1 10^3/uL (0.0-0.1); Basophils % 0.6 %; Eosinophils # 0.4 10^3/uL (0.0-0.8); Eosinophils % 3.5 %; Hematocrit 31.1 % (37-53); Lymphocytes # 1.3 10^3/uL (0.8-4.8); Lymphocytes % 10.1 %; Mean Corpuscular HGB Conc 32.5 g/dL (30-55); Mean Corpuscular Volume 95.4 fl (82-101); Mean Platelet Volume 8.9 fL (7.4-10.4); Monocytes # 0.6 10^3/uL (0.2-0.9); Monocytes % 4.9 %; Neutrophils # 9.91 10^3/uL (1.8-7.7); Neutrophils % 79.9 %; Nucleated Red Blood Cells % 0 %; Platelet Count 168 10^3/cmm (157-399); Red Blood Count 3.26 10^6/uL (3.85-5.65); Red Cell Distribution Width 16.6 % (12.1-15.1); White Blood Count 12.42 10^3/uL (3.29-11.43)
[2024-04-02 05:49] LABS: Alanine Aminotransferase 18 U/L (0-41); Albumin Level 3.5 g/dL (3.5-5.2); Alkaline Phosphatase 124 U/L (40-130); Anion Gap 15.3 (5-19); Aspartate Amino Transferase 20 U/L (0-40); Blood Urea Nitrogen 18 mg/dL (8-23); Calcium 9.3 mg/dL (8.5-10.5); Carbon Dioxide 24 mmol/L (22-29); Chloride 106 mmol/L (98-107); Creatinine Clr Calc Pharmacy 67.8019; Globulin 3.1 g/dL (1.3-4.6); Glucose 114 mg/dL (65-115); Magnesium 1.9 mg/dL (1.7-2.3); Osmolality Calculated 295 mOsm/kg (285-295); Potassium 4.3 mmol/L (3.5-5.1); Sodium 141 mmol/L (136-145); Total Bilirubin 0.6 mg/dL (0.15-1.2); Total Protein 6.6 g/dL (6.6-8.7)
[2024-04-02 09:30] LABS: C.Diff PCR (Lab) NEGATIVE (Negative)
[2024-04-02] MEDS: valACYclovir 1,000 mg Tablet 500 MG PO (09:56)
[2024-04-02] MEDS: atorvastatin 40 mg Tablet 20 MG PO (09:56)
[2024-04-02] MEDS: dilTIAZem ER (12HR) 60 mg Capsule PO ×2 (09:56→17:13)
[2024-04-02] MEDS: folic acid 1 mg Tablet PO (09:57)
[2024-04-02] MEDS: metoprolol tartrate 50 mg Tablet 75 MG PO ×2 (09:57→21:34)
--- NOTE | 2024-04-02 13:41 | P.PN_ITS ---
Subjective 2 Subjective: Infectious disease progress note. White blood cell count trending down to 12,000 today. Afebrile, hemodynamically stable. Repeat blood cultures taken yesterday, pending to a certain clearance. Pending susceptibility testing from streptococcal isolate. Medications: Reviewed: Yes Vitals/I&O/Wt Last Vital Signs Temp 98.1 F 04/02/24 12:00 Pulse 108 H 04/02/24 12:00 Resp 28 H 04/02/24 12:00 BP 163/102 04/02/24 12:00 Pulse Ox 95 04/02/24 12:00 O2 Del Method Room Air 04/02/24 12:00 O2 Flow Rate 2 03/31/24 09:08 04/01/24 04/02/24 04/02/24 22:59 06:59 14:59 Output Total 300 / 550 480 / 480 Balance -300 / -190 -480 / -480 Weight last 48 hrs Weight 83.915 kg Weight 83.915 kg Physical Exam 2 Narrative: General: No acute distress, AO x3 HEENT: PERRLA, pupils bilaterally equal and reactive, pallors not present Chest: Normal vesicular breath sounds, no added sounds, equal good air entry bilaterally CVS: S1-S2 regular, no murmurs, no tachycardia, no gallops, no rubs Abdomen: Soft, nontender, no organomegaly, bowel sounds present Neuro: No focal deficits, no facial deformity, AO x3, power 5/5 in all limbs Data 04/02/24 04:54 04/02/24 04:54 Micro: Microbiology 04/01/24 11:13 Blood Culture - Preliminary Blood NEGATIVE TO DATE 04/01/24 11:09 Blood Culture - Preliminary Blood NEGATIVE TO DATE A&P Assessment and plan (1) Disease due to invasive Streptococcus pneumoniae: Invasive streptococcal pneumonia disease by way of bacteremia, likely related to sequelae of community-acquired pneumonia. Blood culture positive for strep pneumo on 03/30/2024 based on direct PCR from a positive blood culture bottle. Awaiting confirmation on cultures and susceptibility testing. Thus far culture plate with alphahemolytic colonies. Per discussion with lab, it appears that the port cultures 1/2 were positive while the peripheral are negative. However this is not clearly marked on the blood culture bottles therefore difficult to to be certain about this. At any rate given that CT of the chest is showing evidence of pneumonia, preceding respiratory symptoms, favor strep pneumo bacteremia to be more likely related to complication of community-acquired pneumonia rather than a primary port site infection. Repeat blood culture ordered today to determine clearance. Patient is showing clinical improvement on antibiotics. Agree with narrowing down from Zosyn/vancomycin to ceftriaxone 2 g IV every 24 hours. Anticipate patient will need at least 2 weeks of IV ceftriaxone, however final selection and duration to be determined upon pending confirmation of isolate on cultures and sensitivity testing. (2) Community acquired pneumonia: Right lower lobe pneumonia as seen on CT imaging Any right pleural effusion without current evidence of any empyema. Likely bacteremia as a complication of the pneumonia. Patient is immunocompromised with certainly puts him at a higher risk of invasive pneumococcal disease. Continue ceftriaxone 2 g IV every 24 hours. Trend leukocytosis, possible that recent administration of filgrastim may lead to some degree of persistent leukocytosis. Currently trend is improving from 23,000-17,000. Patient is currently afebrile over last 24 hours. (3) Diarrhea: 2 episodes of diarrhea today. Check C. difficile PCR. (4) Rhinovirus infection: Tested positive for rhinovirus upon admission. Possibility of acute viral infection complicated by bacterial pneumonia based on clinical progression. Plan 04/02/2024. Continue treatment with ceftriaxone 2 g IV every 24 hours. Awaiting sensitivity of Streptococcus isolate from 03/30/2024. Repeat blood cultures taken on 04/01/2024 currently pending to ascertain clearance. C. difficile PCR negative. Anticipate patient needing 2 weeks of IV ceftriaxone 2 g IV every 24 hours for treatment of strep pneumo bacteremia as a result of community-acquired pneumonia, assuming quick clearance of cultures, no recurrent fever and PCN susceptible isolate. Attestations 2 Medical Necessity Statement*: per admitting Coding Level of Care Code Acute Code for Chg Fwd Moderate MDM includes number and complexity of problems actively addressed during encounter, amount and/or complexity of data reviewed/ordered and described risk of complication, morbidity or mortality of management as documented Diagnoses Disease due to invasive Streptococcus pneumoniae A49.1 Community acquired pneumonia J18.9 Diarrhea R19.7 Rhinovirus infection B34.8
--- NOTE | 2024-04-02 19:33 | P.PN_ITS ---
Subjective 2 Subjective: He feels like he is continuing to improve. Heart rate has still been spiking up. Vitals/I&O/Wt Last Vital Signs Temp 98.2 F 04/02/24 16:00 Pulse 87 04/02/24 16:00 Resp 19 H 04/02/24 16:00 BP 145/86 04/02/24 16:00 Pulse Ox 97 04/02/24 16:00 O2 Del Method Room Air 04/02/24 16:00 O2 Flow Rate 2 03/31/24 09:08 04/02/24 04/02/24 04/02/24 06:59 14:59 22:59 Intake Total 480 / 480 Output Total 300 / 550 480 / 480 Balance -300 / -190 -480 / -480 480 / 0 Weight last 48 hrs Weight 83.915 kg Weight 83.915 kg Physical Exam 2 Narrative: Accompanied by his . Const: COMMON NORMALS: patient oriented x3 and alert GENERAL APPEARANCE: c ooperative ORIENTATION/CONSCIOUSNESS: Yes awake HENMT: COMMON NORMALS: oropharynx normal Neck/C-Spine: COMMON NORMALS: no JVD Chest: OTHER: Right chest port without erythema, swelling or bruising. Accessed and functioning. Resp: COMMON NORMALS: normal respiratory effort and clear to auscultation bilaterally AUSCULTATION: clear to auscultation bilaterally Cardio: COMMON NORMALS: no JVD, regular rhythm, S1 normal heart sound present, S2 normal heart sound present and No murmurs present (Cardio) RATE: t achycardic RHYTHM: regular rhythm and abnormal rhythm irregularly irregular HEART SOUNDS: S1 normal heart sound present and S2 normal heart sound present GI: COMMON NORMALS: Normal to inspection, nondistended, normoactive bowel sounds present, Soft to palpation and non-tender PALPATION: Yes Soft to palpation Extremity: COMMON NORMALS: no joint enlargement and no pedal edema Neuro: COMMON NORMALS: patient oriented x3 and moves all extremities S ENSORIUM/ORIENTATION: Yes alert Skin: COMMON NORMALS: no rashes or lesions noted GENERAL SKIN EXAM: no rashes or lesions noted Data 04/02/24 04:54 04/02/24 04:54 Micro: Microbiology 03/30/24 12:15 Blood Culture - Final Blood Streptococcus pneumoniae 04/01/24 11:13 Blood Culture - Preliminary Blood NEGATIVE TO DATE 12/07/24 11:09 Blood Culture - Preliminary Blood NEGATIVE TO DATE A&P Assessment and plan (1) Community acquired pneumonia: Reviewed bili repeat blood cultures, so far remaining negative, reviewed original cultures, so far still pending, follow-up for confirmation of ID on culture growth. Discussed with infectious ease. Discussed with him, in case confirmation obtained and no further issues, likelihood would be low for port infection with strep pneumo with otherwise identified source, with bacteremia most likely secondary to complicated pneumonia, he and his agree. Would tentatively look for 2 weeks of ceftriaxone infusions through the port for which he would be coming in daily. He and his would be agreeable to doing so. Reviewed vitals, CBC, leukocytosis decreasing. Reviewed chemistry, renal function is okay. Follow-up pending cultures and repeat cultures. Complicated by bacteremia. Continue treatment with ceftriaxone. Trace effusion on CT. (2) Disease due to invasive Streptococcus pneumoniae: Reviewed vitals, CBC, CMP, blood culture. Discussed with patient and his . Follow-up blood counts. Repeat cultures. Continue IV antibiotic, follow-up reassessment culture and identification to compare to the PCR result with pneumococcus growing from port culture. Continue ceftriaxone. In case of congruent organism, no further issues, tentative plan would be for 2 weeks of IV antibiotic therapy with ceftriaxone through the port. Appreciate ID consultation. Note reviewed. With reported diarrhea, C. difficile is negative. (3) Atrial fibrillation with RVR: Suboptimally controlled atrial fibrillation with RVR still with episodes of tachycardia. Increase metoprolol to 75 mg discussed with him and his , continue Cardizem. Monitor for risk of hypotension with increasing metoprolol in combination with Cardizem. Reviewed chemistry and magnesium. Recheck. Worsened heart rates today. Gave additional 25 mg metoprolol dose with improvement. Continue to monitor. Continue metoprolol, Cardizem. Reviewed heart rates, with improvement. Replace additional magnesium. Continue Cardizem and metoprolol. On presentation A-fib with RVR heart rates up to 160s Admitted to [facility]. Monitor for risk of bradycardia, hypotension, tachycardia. Reviewed TSH. Reviewed potassium. Magnesium is okay. (4) Diarrhea: Reports diarrhea over the last day with some dark stools. Reviewed C. difficile PCR, negative. Check Hemoccult. Reviewed hemoglobin, with noted some acute on chronic anemia. Normocytic. Add PPI. Follow-up Hemoccult. Repeat blood counts. (5) Rhinovirus infection: Continue supportive measures, isolation for now. (6) Sepsis: Resolved sepsis. Continue treatment of pneumonia complicated by bacteremia as above. (7) Hypomagnesemia: Reviewed recheck magnesium. (8) Mantle cell lymphoma: In between chemotherapy cycles. So far has been responding very well to treatment. Has a scheduled PET scan tomorrow morning. With history of tumor lysis syndrome. Plan HTN: Continue diltiazem, metoprolol. Anticoagulation, switch to Lovenox for now while in the hospital. Rheumatoid arthritis: No longer taking methotrexate SHERINE: Has a CPAP at home which she wears intermittently but not as much recently Attestations 2 Medical Necessity Statement*: Continue admission for assessment of management of sepsis with complicated pneumonia with pneumococcal bacteremia, rhinovirus, and instrument with immunocompromise with underlying lymphoma, optimization of control of A-fib with RVR. and High MDM includes amount and/or complexity of data reviewed/ordered [ previous or external records, resulted lab(s)/test(s), ordered lab(s)/test(s) and other healthcare professional discussion] and described risk of complication, morbidity or mortality of management as documented Diagnoses Community acquired pneumonia J18.9 Disease due to invasive Streptococcus pneumoniae A49.1 Atrial fibrillation with RVR I48.91 Diarrhea R19.7 Rhinovirus infection B34.8 Sepsis A41.9 Hypomagnesemia E83.42 Mantle cell lymphoma C83.10
[2024-04-02] MEDS: cefTRIAXone 2,000 mg SDV 2000 MG IVP (21:34)
[2024-04-03] VITALS (8 sets, daily range): BP systolic 141–167; BP diastolic 95–108; PULSE 92–115; RESP 18–27; TEMP 36.5–36.7; O2SAT 95–96
[2024-04-03] MEDS: enoxaparin 80 mg/0.8 mL Syringe SUBCUT ×2 (02:38→14:01)
[2024-04-03 05:33] LABS: Basophils # 0.1 10^3/uL (0.0-0.1); Basophils % 1.2 %; Eosinophils # 0.5 10^3/uL (0.0-0.8); Eosinophils % 5.3 %; Lymphocytes # 1.3 10^3/uL (0.8-4.8); Lymphocytes % 14.7 %; Mean Corpuscular HGB Conc 33.1 g/dL (30-55); Mean Corpuscular Hemoglobin 31.3 pg (27-33); Mean Corpuscular Volume 94.5 fl (82-101); Mean Platelet Volume 8.8 fL (7.4-10.4); Monocytes # 0.7 10^3/uL (0.2-0.9); Monocytes % 7.3 %; Neutrophils # 6.21 10^3/uL (1.8-7.7); Neutrophils % 70.1 %; Nucleated Red Blood Cells % 0 %; Platelet Count 185 10^3/cmm (157-399); Red Blood Count 3.07 10^6/uL (3.85-5.65); Red Cell Distribution Width 16.4 % (12.1-15.1); White Blood Count 8.86 10^3/uL (3.29-11.43)
[2024-04-03 05:47] LABS: Magnesium 1.7 mg/dL (1.7-2.3)
[2024-04-03 05:49] LABS: Blood Urea Nitrogen 16 mg/dL (8-23); Carbon Dioxide 23 mmol/L (22-29); Chloride 102 mmol/L (98-107); Creatinine Clr Calc Pharmacy 61.0217; Glucose 111 mg/dL (65-115); Osmolality Calculated 288 mOsm/kg (285-295); Sodium 138 mmol/L (136-145)
[2024-04-03] MEDS: metoprolol tartrate 50 mg Tablet 75 MG PO ×2 (09:20→22:30)
[2024-04-03] MEDS: dilTIAZem ER (12HR) 60 mg Capsule PO ×4 (09:20→22:30)
[2024-04-03] MEDS: valACYclovir 1,000 mg Tablet 500 MG PO (09:21)
[2024-04-03] MEDS: folic acid 1 mg Tablet PO (09:21)
[2024-04-03] MEDS: atorvastatin 40 mg Tablet 20 MG PO (09:21)
[2024-04-03] MEDS: pantoprazole DR 40 mg Tablet PO ×2 (09:21→18:00)
[2024-04-03 09:59] LABS: Iron 52 ug/dL (59-158); NT Pro B Type Natriuretic Pept 2624 pg/mL (0-450); Percent Saturation 20.5 % (20-50); Total Iron Binding Capacity 253 mcg/dl; Unsaturated Iron Binding 201 ug/dL (112-347)
[2024-04-03 10:04] LABS: Estmated Average Glucose 97
[2024-04-03 10:17] LABS: Vitamin B12 > 2000 pg/mL (232-1245)
--- NOTE | 2024-04-03 10:59 | PC.SOCIAL ---
IMM Update pg 2 of IMM Updated and reviewed w/ patient. Copy provided and copy dated, initialed and placed in chart.
[2024-04-03] MEDS: acetaminophen 325 mg Tablet 650 MG PO (14:20)
--- NOTE | 2024-04-03 15:11 | PM.PN ---
Subjective Subjective: Hospital course, labs appreciated. Seen with family at bedside today. Patient sitting up in bed. Denies any nausea, ting, headache. States he is feeling a lot better. Does complain of palpitations on and off. 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 Medications: Reviewed: Yes Vitals/I&O/Wt Last Vital Signs Temp 98.0 F 04/03/24 11:35 Pulse 102 H 04/03/24 11:35 Resp 23 H 04/03/24 11:35 BP 151/97 04/03/24 11:35 Pulse Ox 95 04/03/24 11:35 O2 Del Method Room Air 04/03/24 11:35 O2 Flow Rate 2 03/31/24 09:08 04/03/24 04/03/24 04/03/24 06:59 14:59 22:59 Intake Total 300 / 780 360 / 360 Output Total 650 / 1130 Balance -350 / -350 360 / 360 Weight last 48 hrs Weight 82.191 kg Weight 82.191 kg Weight 83.915 kg Physical Exam Narrative: Accompanied by his . Const: COMMON NORMALS: patient oriented x3 and alert GENERAL APPEARANCE: cooperative ORIENTATION/CONSCIOUSNESS: Yes awake HENMT: COMMON NORMALS: oropharynx normal Neck/C-Spine: COMMON NORMALS: no JVD Chest: OTHER: Right chest port without erythema, swelling or bruising. Accessed and functioning. Resp: COMMON NORMALS: normal respiratory effort and clear to auscultation bilaterally AUSCULTATION: clear to auscultation bilaterally Cardio: COMMON NORMALS: no JVD, regular rhythm, S1 normal heart sound present, S2 normal heart sound present and No murmurs present (Cardio) RATE: tachycardic RHYTHM: regular rhythm and abnormal rhythm irregularly irregular HEART SOUNDS: S1 normal heart sound present and S2 normal heart sound present GI: COMMON NORMALS: Normal to inspection, nondistended, normoactive bowel sounds present, Soft to palpation and non-tender PALPATION: Yes Soft to palpation Extremity: COMMON NORMALS: no joint enlargement and no pedal edema Neuro: COMMON NORMALS: patient oriented x3 and moves all extremities SENSORIUM/ORIENTATION: Yes alert Skin: COMMON NORMALS: no rashes or lesions noted GENERAL SKIN EXAM: no rashes or lesions noted Data 04/03/24 04:35 04/03/24 04:35 Micro: Microbiology 03/30/24 12:15 Blood Culture - Final Blood Streptococcus pneumoniae 04/01/24 11:13 Blood Culture - Preliminary Blood NEGATIVE TO DATE 04/01/24 11:09 Blood Culture - Preliminary Blood NEGATIVE TO DATE A&P Assessment and plan (1) Community acquired pneumonia: Reviewed bili repeat blood cultures, so far remaining negative, reviewed original cultures, so far still pending, follow-up for confirmation of ID on culture growth. Discussed with infectious ease. Discussed with him, in case confirmation obtained and no further issues, likelihood would be low for port infection with strep pneumo with otherwise identified source, with bacteremia most likely secondary to complicated pneumonia, he and his agree. Would tentatively look for 2 weeks of ceftriaxone infusions through the port for which he would be coming in daily. He and his would be agreeable to doing so. Reviewed vitals, CBC, leukocytosis decreasing. Reviewed chemistry, renal function is okay. Follow-up pending cultures and repeat cultures. Complicated by bacteremia. Continue treatment with ceftriaxone. Trace effusion on CT. (2) Disease due to invasive Streptococcus pneumoniae: Reviewed vitals, CBC, CMP, blood culture. Discussed with patient and his . Follow-up blood counts. Repeat cultures. Continue IV antibiotic, follow-up reassessment culture and identification to compare to the PCR result with pneumococcus growing from port culture. Continue ceftriaxone. In case of congruent organism, no further issues, tentative plan would be for 2 weeks of IV antibiotic therapy with ceftriaxone through the port. Appreciate ID consultation. Note reviewed. With reported diarrhea, C. difficile is negative. (3) Atrial fibrillation with RVR: Suboptimally controlled atrial fibrillation with RVR still with episodes of tachycardia. Increase metoprolol to 75 mg discussed with him and his , continue Cardizem. Monitor for risk of hypotension with increasing metoprolol in combination with Cardizem. Reviewed chemistry and magnesium. Recheck. Worsened heart rates today. Gave additional 25 mg metoprolol dose with improvement. Continue to monitor. Continue metoprolol, Cardizem. Reviewed heart rates, with improvement. Replace additional magnesium. Continue Cardizem and metoprolol. On presentation A-fib with RVR heart rates up to 160s Admitted to [facility]. Monitor for risk of bradycardia, hypotension, tachycardia. Reviewed TSH. Reviewed potassium. Magnesium is okay. (4) Diarrhea: Reports diarrhea over the last day with some dark stools. Reviewed C. difficile PCR, negative. Check Hemoccult. Reviewed hemoglobin, with noted some acute on chronic anemia. Normocytic. Add PPI. Follow-up Hemoccult. Repeat blood counts. (5) Rhinovirus infection: Continue supportive measures, isolation for now. (6) Sepsis: Resolved sepsis. Continue treatment of pneumonia complicated by bacteremia as above. (7) Hypomagnesemia: Reviewed recheck magnesium. (8) Mantle cell lymphoma: In between chemotherapy cycles. So far has been responding very well to treatment. Has a scheduled PET scan tomorrow morning. With history of tumor lysis syndrome. Plan HTN: Continue diltiazem, metoprolol. Anticoagulation, switch to Lovenox for now while in the hospital. Rheumatoid arthritis: No longer taking methotrexate SHERINE: Has a CPAP at home which she wears intermittently but not as much recently Plan for the day: Follow-up blood cultures. Currently blood cultures from 03/30 shows Streptococcus pneumonia. Repeat blood cultures from 01/30 so far negative. Appreciate ID recommendations. Plan for IV ceftriaxone as an outpatient 2 g daily for next 2 weeks from 04/01. Patient will be coming as to the infusion center daily for the antibiotic. Will be getting IV antibiotics to the port. Heart rate elevated.Target heart rate less than 100. Metoprolol increased to 75 mg twice daily. Increase Cardizem to 60 mg 4 times daily. Monitor blood pressures. Goal blood pressure less than 140/90 mmHg. Will uptitrate antihypertensive depending on goal blood pressures. Check proBNP, iron panel, vitamin B12 levels. Attestations Medical Necessity Statement*: Requires further hospitalization for management of A-fib with RVR as medications were adjusted, strep bacteremia in a patient with port in place on chemotherapy for mantle cell lymphoma while outpatient antibiotics are set up Diagnoses Community acquired pneumonia J18.9 Disease due to invasive Streptococcus pneumoniae A49.1 Atrial fibrillation with RVR I48.91 Diarrhea R19.7 Rhinovirus infection B34.8 Sepsis A41.9 Hypomagnesemia E83.42 Mantle cell lymphoma C83.10
[2024-04-03] MEDS: cefTRIAXone 2,000 mg SDV 2000 MG IVP (22:30)
[2024-04-04] VITALS: BP 142/86; PULSE 74; RESP 20; TEMP 37.2; O2SAT 95
[2024-04-04] MEDS: enoxaparin 80 mg/0.8 mL Syringe SUBCUT (03:18)
[2024-04-04 04:00] VITALS: BP 150/92; PULSE 87; RESP 21; TEMP 36.9; O2SAT 98
[2024-04-04 04:00] LABS: Basophils # 0.1 10^3/uL (0.0-0.1); Basophils % 1.2 %; Eosinophils # 0.5 10^3/uL (0.0-0.8); Eosinophils % 5.3 %; Hematocrit 29.5 % (37-53); Lymphocytes # 1.5 10^3/uL (0.8-4.8); Lymphocytes % 15.3 %; Mean Corpuscular HGB Conc 33.9 g/dL (30-55); Mean Corpuscular Hemoglobin 31.2 pg (27-33); Mean Corpuscular Volume 91.9 fl (82-101); Mean Platelet Volume 8.4 fL (7.4-10.4); Monocytes # 0.8 10^3/uL (0.2-0.9); Monocytes % 7.9 %; Neutrophils # 6.69 10^3/uL (1.8-7.7); Nucleated Red Blood Cells % 0 %; Platelet Count 197 10^3/cmm (157-399); Red Blood Count 3.21 10^6/uL (3.85-5.65); Red Cell Distribution Width 16.3 % (12.1-15.1); White Blood Count 9.72 10^3/uL (3.29-11.43)
[2024-04-04 04:23] LABS: Alanine Aminotransferase 18 U/L (0-41); Albumin Level 3.6 g/dL (3.5-5.2); Alkaline Phosphatase 118 U/L (40-130); Aspartate Amino Transferase 17 U/L (0-40); Blood Urea Nitrogen 17 mg/dL (8-23); Calcium 9.5 mg/dL (8.5-10.5); Carbon Dioxide 25 mmol/L (22-29); Chloride 103 mmol/L (98-107); Globulin 2.6 g/dL (1.3-4.6); Glucose 119 mg/dL (65-115); Magnesium 1.8 mg/dL (1.7-2.3); Osmolality Calculated 289 mOsm/kg (285-295); Sodium 138 mmol/L (136-145); Total Bilirubin 0.8 mg/dL (0.15-1.2); Total Protein 6.2 g/dL (6.6-8.7)
[2024-04-04 04:29] LABS: Chol HDL Ratio 4.13 mg/dL (1.0-5.00); Cholesterol 99 mg/dL (0-200); HDL Cholesterol 24 mg/dL (60-100); LDL Cholesterol Calculated 46 mg/dL (50-129); Triglycerides 145 mg/dL (0-150); VLDL Cholestrol Calculation 29 mg/dL (0-30)
[2024-04-04 04:49] LABS: Folate Level > 20.0 ng/mL (4.5-32.2)
[2024-04-04 06:00] VITALS: PULSE 90
[2024-04-04 08:00] VITALS: BP 138/92; PULSE 96; RESP 18; TEMP 36.7; O2SAT 97
--- NOTE | 2024-04-04 08:14 | PM.DCS ---
Discharge Providers Date of Admission: 03/30/24 13:12 Date of Discharge: April 04, 2024 Attending Provider at Admission: Edward Boyd Attending Provider at Discharge: Cuate Moses MD Primary Care Provider: Agustin Beltran MD Diagnoses at Discharge Discharge Diagnosis (1) Community acquired pneumonia: Status: Acute (2) Disease due to invasive Streptococcus pneumoniae: Status: Acute (3) Atrial fibrillation with RVR: Status: Acute (4) Diarrhea: Status: Acute (5) Rhinovirus infection: Status: Acute (6) Sepsis: Status: Acute (7) Hypomagnesemia: Status: Acute (8) Mantle cell lymphoma: Status: Acute Reason for Visit Reason for Visit: weakness Hospital Course Hospital Course Dwayne Riley is a 78 year old male with h/o rheumatoid arthritis on weekly methotrexate until recently, chronic atrial fibrillation on anticoagulation, 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 Disease course complicated by tumor lysis syndrome 11/2023, since resolved, treated at [facility]. Currently on chemotherapy with bendamustine/rituximab, LD (cycle 4 of 7) on 03/15/24. last neulasta received on 03/16. Current ANC 15.09. PET/CT is showing improvement in LAD. Incidentally noted multinodular goiter. Chemoport placed RIJ on 01/05/24. Patient was in his usual state of health until 03/29 when he developed high grade fever, lethargy. Fever up to 10 2-1 03 Fahrenheit at home. Visited PCP on 03/30- given prescription for Cipro 500mg BID. Cardizem increased to 60 BID for noted A fib with RVR 120-140. After PCP visit, upon returning home his found him to be confused and somewhat disoriented therefore he was brought into the emergency room via EMS. Admitted here on 03/30 due to AMS, confusion. In ER he is found with leukocytosis 23.26, A-fib with RVR 160s, respiratory rate 18-38, temp 99.3. Started Vanc/ Zosyn empirically. Blood cx positive for Strep pneumoniae from 03/30. Repeat blood cultures have remained negative so far. His antibiotics were tailored as per culture sensitivities. His hospitalization was complicated by him having A-fib with RVR for which his home dose of Cardizem and metoprolol were further adjusted. Patient has remained hemodynamically stable, afebrile over last 24 to 48 hours with his repeat blood cultures being negative. He has been discharged hemodynamically stable condition on IV ceftriaxone as an outpatient to 2 g daily for overall 14 days. He is to follow-up with ID clinic as an outpatient. He will be coming as an outpatient infusion center daily. His home dose of metoprolol has been increased to 100 mg twice daily and Cardizem has been increased to 240 mg once daily. During hospitalization with increase of medication he has been hemodynamically stable. He is to follow-up with his primary care provider within next 1 week and with his infectious disease provider within next 2 to 3 weeks as per set appointments. Physical Exam Narrative: Accompanied by his . Const: COMMON NORMALS: patient oriented x3 and alert GENERAL APPEARANCE: cooperative ORIENTATION/CONSCIOUSNESS: Yes awake HENMT: COMMON NORMALS: oropharynx normal Neck/C-Spine: COMMON NORMALS: no JVD Chest: OTHER: Right chest port without erythema, swelling or bruising. Accessed and functioning. Resp: COMMON NORMALS: normal respiratory effort and clear to auscultation bilaterally AUSCULTATION: clear to auscultation bilaterally Cardio: COMMON NORMALS: no JVD, regular rhythm, S1 normal heart sound present, S2 normal heart sound present and No murmurs present (Cardio) RATE: tachycardic RHYTHM: regular rhythm and abnormal rhythm irregularly irregular HEART SOUNDS: S1 normal heart sound present and S2 normal heart sound present GI: COMMON NORMALS: Normal to inspection, nondistended, normoactive bowel sounds present, Soft to palpation and non-tender PALPATION: Yes Soft to palpation Extremity: COMMON NORMALS: no joint enlargement and no pedal edema Neuro: COMMON NORMALS: patient oriented x3 and moves all extremities SENSORIUM/ORIENTATION: Yes alert Skin: COMMON NORMALS: no rashes or lesions noted GENERAL SKIN EXAM: no rashes or lesions noted Discharge Data Studies Completed and Pending Completed Studies During Hospitalization Category Date Time Status CT chest wo con [id number] Routine Cat Scan 03/31/24 12:06 Completed XR chest 1V portable [id number] Stat Exams 03/30/24 10:54 Completed US gall bladder [id number] Stat Ultrasound 03/30/24 12:37 Completed Pending at discharge Category Date Time Status Blood Culture Stat Lab 03/30/24 12:15 Results Blood Culture Stat Lab 04/01/24 11:13 Results MAG [Magnesium] AM LABS Lab 04/05/24 04:00 Ordered MAG [Magnesium] AM LABS Lab 04/06/24 04:00 Ordered Radiology Impressions Chest X-Ray 03/30/24 10:54 IMPRESSION: Questionable mild bibasilar atelectasis versus artifact. No evidence of large focal consolidation. Gallbladder Ultrasound 03/30/24 12:37 IMPRESSION: 1. Normal common bile duct. 2. No cholelithiasis or pericholecystic fluid. Gallbladder wall is diffusely and mildly thickened up to 5 mm. This may be due to systemic disease or hepatobiliary disease. Less likely acute cholecystitis. 3. RIGHT hepatic cyst. Chest CT 03/31/24 12:06 IMPRESSION: Partial consolidation RIGHT lower lobe with air bronchograms compatible with pneumonia. Tiny RIGHT pleural effusion. Microbiology 03/30/24 12:15 Blood Blood Culture - Final Streptococcus pneumoniae 04/01/24 11:13 Blood Blood Culture - Preliminary NEGATIVE TO DATE 04/01/24 11:09 Blood Blood Culture - Preliminary NEGATIVE TO DATE 03/30/24 12:20 Blood Blood Culture - Preliminary NEGATIVE TO DATE 03/30/24 11:35 Urine,Voided Legionella Urinary Antigen - Final 03/30/24 11:35 Urine,Voided Bacterial Antigens - Final Laboratory Results WBC 9.72 10^3/uL (3.29-11.43) 04/04/24 03:33 RBC 3.21 10^6/uL (3.85-5.65) L 04/04/24 03:33 Hgb 10.00 g/dL (11.27-16.99) L 04/04/24 03:33 Hct 29.5 % (37-53) L 04/04/24 03:33 MCV 91.9 fl (82-101) 04/04/24 03:33 MCH 31.2 pg (27-33) 04/04/24 03:33 MCHC 33.9 g/dL (30-55) 04/04/24 03:33 RDW 16.3 % (12.1-15.1) H 04/04/24 03:33 Plt Count 197 10^3/cmm (157-399) 04/04/24 03:33 MPV 8.4 fL (7.4-10.4) 04/04/24 03:33 Neut % (Auto) 69.0 % 04/04/24 03:33 Lymph % (Auto) 15.3 % 04/04/24 03:33 Cottle % (Auto) 7.9 % 04/04/24 03:33 Eos % (Auto) 5.3 % 04/04/24 03:33 Baso % (Auto) 1.2 % 04/04/24 03:33 Neut # (Auto) 6.69 10^3/uL (1.8-7.7) 04/04/24 03:33 Lymph # (Auto) 1.5 10^3/uL (0.8-4.8) 04/04/24 03:33 Cottle # (Auto) 0.8 10^3/uL (0.2-0.9) 04/04/24 03:33 Eos # (Auto) 0.5 10^3/uL (0.0-0.8) 04/04/24 03:33 Baso # (Auto) 0.1 10^3/uL (0.0-0.1) 04/04/24 03:33 Nucleated RBC % (auto) 0 % 04/04/24 03:33 Nucleated RBCs # 0.0 /100WBC 04/04/24 03:33 PT 18.70 SECONDS (12.1-14.9) H 03/30/24 11:05 INR 1.50 (0.8-1.2) H 03/30/24 11:05 Sodium 138 mmol/L (136-145) 04/04/24 03:33 Potassium 4.0 mmol/L (3.5-5.1) 04/04/24 03:33 Chloride 103 mmol/L (98-107) 04/04/24 03:33 Carbon Dioxide 25 mmol/L (22-29) 04/04/24 03:33 Anion Gap 14.0 (5-19) 04/04/24 03:33 BUN 17 mg/dL (8-23) 04/04/24 03:33 Creatinine 1.0 mg/dL (0.7-1.2) 04/04/24 03:33 GFR Calculation Not Reportable 04/04/24 03:33 Glucose 119 mg/dL (65-115) H 04/04/24 03:33 Estimat Average Glucose 97 04/03/24 04:35 Hemoglobin A1c 5.0 % (4.0-6.0) 04/03/24 04:35 Calculated Osmolality 289 mOsm/kg (285-295) 04/04/24 03:33 Lactic Acid 2.5 mmol/L (0.5-2.2) H 03/30/24 11:05 Lactic Acid (Sepsis) 3.3 mmol/L (0.5-2.2) H 03/30/24 14:52 Uric Acid 3.9 mg/dL (3.4-7.0) 04/01/24 02:14 Calcium 9.5 mg/dL (8.5-10.5) 04/04/24 03:33 Magnesium 1.8 mg/dL (1.7-2.3) 04/04/24 03:33 Iron 52 ug/dL (59-158) L 04/03/24 04:35 TIBC 253 mcg/dl 04/03/24 04:35 % Saturation 20.5 % (20-50) 04/03/24 04:35 Unsat Iron Binding 201 ug/dL (112-347) 04/03/24 04:35 Total Bilirubin 0.8 mg/dL (0.15-1.2) 04/04/24 03:33 AST 17 U/L (0-40) 04/04/24 03:33 ALT 18 U/L (0-41) 04/04/24 03:33 Alkaline Phosphatase 118 U/L (40-130) 04/04/24 03:33 NT-Pro-B Natriuret Pep 2624 pg/mL (0-450) H 04/03/24 04:35 Total Protein 6.2 g/dL (6.6-8.7) L 04/04/24 03:33 Albumin 3.6 g/dL (3.5-5.2) 04/04/24 03:33 Globulin 2.6 g/dL (1.3-4.6) 04/04/24 03:33 Triglycerides 145 mg/dL (0-150) 04/04/24 03:33 Cholesterol 99 mg/dL (0-200) 04/04/24 03:33 LDL Cholesterol, Calc 46 mg/dL (50-129) L 04/04/24 03:33 Total VLDL Cholesterol 29 mg/dL (0-30) 04/04/24 03:33 HDL Cholesterol 24 mg/dL (60-100) L 04/04/24 03:33 Cholesterol/HDL Ratio 4.13 mg/dL (1.0-5.00) 04/04/24 03:33 Vitamin B12 > 2000 pg/mL (232-1245) H 04/03/24 04:35 Folate > 20.0 ng/mL (4.5-32.2) 04/04/24 03:33 TSH 2.26 uIU/mL (0.27-4.20) 03/30/24 11:05 Urine Color Yellow (Yellow) 03/30/24 11:35 Urine Appearance Error (CLEAR) A 03/30/24 11:35 Urine pH 5.0 (5-7) 03/30/24 11:35 Ur Specific [place] 1.019 (1.005-1.030) 03/30/24 11:35 Urine Protein 3+ (Negative) A 03/30/24 11:35 Urine Glucose (UA) Negative (Normal) 03/30/24 11:35 Urine Ketones Negative (Negative) 03/30/24 11:35 Urine Blood Trace (Negative) A 03/30/24 11:35 Urine Nitrate Negative (Negative) 03/30/24 11:35 Urine Bilirubin Negative (Negative) 03/30/24 11:35 Urine Urobilinogen 1.0 mg/dL (Negative) 03/30/24 11:35 Ur Leukocyte Esterase Negative (Negative) 03/30/24 11:35 Urine RBC 0-2 /hpf (0-2) 03/30/24 11:35 Urine WBC 0-5 /hpf (0-5) 03/30/24 11:35 Ur Squamous Epith Cells 0-5 /hpf (0-5) 03/30/24 11:35 Amorphous Sediment Not Reportable 03/30/24 11:35 Urine Bacteria None seen /hpf (NONE) 03/30/24 11:35 Hyaline Casts 2.87 /lpf 03/30/24 11:35 Nasal MRSA (PCR) Not detected (Negative) 03/30/24 14:08 Adenovirus (PCR) Not detected (NOT DETECT) 03/30/24 14:08 C. pneumoniae DNA (PCR) Not detected (NOT DETECT) 03/30/24 14:08 C. difficile (PCR) Negative (Negative) 04/02/24 08:07 Coronavirus (PCR) Negative (Negative) 03/30/24 11:15 Coronavirus 229E (PCR) Not detected (NOT DETECT) 03/30/24 14:08 Human Metapneumovir PCR Not detected (NOT DETECT) 03/30/24 14:08 Influenza A (H1) PCR Not detected (NOT DETECT) 03/30/24 14:08 Influenza A (PCR) Negative (Negative) 03/30/24 11:15 Influ A (H1/09) PCR Not detected (NOT DETECT) 03/30/24 14:08 Influenza A (H3) PCR Not detected (NOT DETECT) 03/30/24 14:08 Influenza Type A (PCR) Not detected (NOT DETECT) 03/30/24 14:08 Influenza Type B (PCR) Not detected (NOT DETECT) 03/30/24 14:08 M. pneumoniae (PCR) Not detected (NOT DETECT) 03/30/24 14:08 Parainfluenza 1 (PCR) Not detected (NOT DETECT) 03/30/24 14:08 Parainfluenza 2 (PCR) Not detected (NOT DETECT) 03/30/24 14:08 Parainfluenza 3 (PCR) Not detected (NOT DETECT) 03/30/24 14:08 Parainfluenza 4 (PCR) Not detected (NOT DETECT) 03/30/24 14:08 RSV (PCR) Negative (Negative) 03/30/24 11:15 RSV Type A (PCR) Not detected (NOT DETECT) 03/30/24 14:08 RSV Type B (PCR) Not detected (NOT DETECT) 03/30/24 14:08 Entero/Rhino (PCR) Detected (NOT DETECT) A 03/30/24 14:08 SARS-CoV-2 (PCR) Not detected (NOT DETECT) 03/30/24 14:08 Vitals Last Vital Signs Temp 98.0 F 04/04/24 08:00 Pulse 96 04/04/24 08:00 Resp 18 04/04/24 08:00 BP 138/92 04/04/24 08:00 Pulse Ox 97 04/04/24 08:00 O2 Del Method Room Air 04/04/24 08:00 O2 Flow Rate 2 03/31/24 09:08 Discharge Plan Discharge Patient Disposition: Home Condition: Stable Prescriptions: New metoprolol tartrate 50 mg Tablet 100 mg PO BID@0900,2100 30 Days Qty: 90 0RF diltiazem HCl [Cardizem CD] 240 mg capsule,extended release 24hr 240 mg PO DAILY Qty: 30 0RF Continued cholecalciferol (vitamin D3) 25 mcg (1,000 unit) capsule 25 mcg PO DAILY glucosamine HCl 1,500 mg tablet 1,500 mg PO DAILY (DME) C-pap mask, cushions, head set See Rx Instructions .Route .MEDSUPPLY Qty: 1 0RF Rx Instructions: As directed loperamide 2 mg capsule 2 mg PO DAILY PRN (Reason: Diarrhea) ondansetron 4 mg tablet,disintegrating 4 mg PO BID PRN (Reason: Nausea And Vomiting) hydrocortisone [Procto-Med HC] 2.5 % cream with perineal applicator 1 applic ME DAILY PRN (Reason: hemorrhoids) Qty: 30 1RF folic acid 1 mg tablet 1 mg PO DAILY Qty: 90 3RF Eliquis 5 mg tablet 5 mg PO BID Qty: 180 1RF Hold Instructions: Resume on 01/07/24. simvastatin 20 mg tablet 20 mg PO DAILY Qty: 90 3RF valacyclovir 500 mg tablet 500 mg PO DAILY Qty: 30 11RF Discontinued diltiazem HCl 60 mg capsule,extended release 12 hr 60 mg PO BID Qty: 60 5RF ciprofloxacin HCl 500 mg tablet 500 mg PO BID Qty: 10 0RF metoprolol succinate 100 mg Tablet Extended Release 24 Hr 50 mg PO DAILY Discharge Orders: Discharge Order (Routine); Ordered 04/04/24 Ordered By: Cuate Moses Other Ambulatory Orders: Blood Culture (Routine) Timeframe: 20240424 Facility: [facility] - Location: Lab - Main Lab Ordered By: Ilsa Arteaga Referrals: Surgical Services [Other] (You are scheduled on Wednesday and Wednesday @ 0930 in Surgical services to receive you IV abx. You will need to park at Surgical services entrance and come in through the double doors. If you have any issues you can call the main hospital number and ask for the OP GI Lab. ) [facility] [Outside] - 04/05/24 10:00 am (You are sheduled Wednesday-Wednesday @ 1000 in the Infusion Center ([facility] for your IV abxs. ) Agustin Beltran MD [Primary Care Provider] - 04/06/24 8:40 am Discharge Diet: Cardiac Discharge Activity: Resume usual activity and Increase activity as tolerated Patient Instructions: Metoprolol (By mouth) (Lopressor, Toprol XL), Diltiazem (By mouth) (Cardizem, Cardizem CD, Cardizem LA, Cardizem SR), A-fib (Atrial Fibrillation) (DC), Community Acquired Pneumonia (DC), Opioid Safety, Pneumonia Stoplight Discharge Attestations Time Spent in Discharge Care*: greater than 30 min Specific Discharge Activities: educating patient, educating and/or supporting family/caregiver, discussing with pcp/other providers, discussing with shoe caser/social workers/dc planners, documenting/other paperwork and evaluating patient/reviewing data Quality Metrics Clinical Quality Measures [ No reported AMI, CVA or VTE this stay] Coding Level of Care Code 43647 Total time (in minutes) for Discharge: 60 Diagnoses Community acquired pneumonia J18.9 Disease due to invasive Streptococcus pneumoniae A49.1 Atrial fibrillation with RVR I48.91 Diarrhea R19.7 Rhinovirus infection B34.8 Sepsis A41.9 Hypomagnesemia E83.42 Mantle cell lymphoma C83.10
[2024-04-04] MEDS: atorvastatin 40 mg Tablet 20 MG PO (08:24)
[2024-04-04] MEDS: folic acid 1 mg Tablet PO (08:24)
[2024-04-04] MEDS: valACYclovir 1,000 mg Tablet 500 MG PO (08:24)
[2024-04-04] MEDS: pantoprazole DR 40 mg Tablet PO (08:24)
[2024-04-04] MEDS: dilTIAZem ER (12HR) 60 mg Capsule PO (08:25)
[2024-04-04] MEDS: metoprolol tartrate 50 mg Tablet 75 MG PO (08:25)
[2024-04-04] MEDS: cefTRIAXone 2,000 mg SDV 2000 MG IVP (10:50)
[2024-04-04 11:32] VITALS: BP 111/87; PULSE 89; RESP 20; TEMP 36.7; O2SAT 99
[2024-04-04 12:06] VITALS: BP 138/86; PULSE 82; RESP 18; O2SAT 96
--- NOTE | 2024-04-04 14:34 | P.PN_ITS ---
Subjective 2 Subjective: Infectious disease progress note. Patient was discharged prior to me being able to round on him today. Overall clinically stable. Blood culture and susceptibility now available. She was penicillin susceptible Streptococcus isolated. Medications: Reviewed: Yes Vitals/I&O/Wt Last Vital Signs Temp 98.1 F 04/04/24 11:32 Pulse 82 04/04/24 12:06 Resp 18 04/04/24 12:06 BP 138/86 04/04/24 12:06 Pulse Ox 96 04/04/24 12:06 O2 Del Method Room Air 04/04/24 11:32 O2 Flow Rate 2 03/31/24 09:08 04/03/24 04/04/24 04/04/24 22:59 06:59 14:59 Intake Total 240 / 600 200 / 800 120 / 120 Output Total 700 / 700 525 / 525 Balance 240 / 600 -500 / 100 -405 / -405 Weight last 48 hrs Weight 82.146 kg Weight 82.146 kg Weight 82.191 kg Weight 82.191 kg Physical Exam 2 Narrative: General: No acute distress, AO x3 HEENT: PERRLA, pupils bilaterally equal and reactive, pallors not present Chest: Normal vesicular breath sounds, no added sounds, equal good air entry bilaterally CVS: S1-S2 regular, no murmurs, no tachycardia, no gallops, no rubs Abdomen: Soft, nontender, no organomegaly, bowel sounds present Neuro: No focal deficits, no facial deformity, AO x3, power 5/5 in all limbs Data 04/04/24 03:33 04/04/24 03:33 Micro: Microbiology 03/30/24 12:20 Blood Culture - Final Blood NO GROWTH AFTER 5 DAYS NAME: RileyDwayne Jesus Alberto LOC: [facility] U #: [id number] AGE/SX: 78/M ROOM: 106 R E03/30/[address]: Cuate Moses MD : 1945 BED: 1 D IS: 04/04/24 FAX #: STATUS: DIS IN TLOC: Spec #: [id number] Yonatan: 03/30/24-1215 Status: COMP Req #: [id number] Recd: 03/30/24-[address]: Belkys Esquivel MD Src: Blood SpDesc: Ordered: Bcult Procedure Result Verified Site Blood Culture Final 04/02/24-1551 1 OF 4 BOTTLES POSITIVE DIRECT GRAM STAIN: GRAM POSITIVE COCCI IN PAIRS, SOME IN SHORT CHAINS IDENTIFICATION BY PCR Organism 1 Streptococcus pneumoniae Growth 1 BOTTLE Gram Stain Charge Charge for Gram Stain CRITICAL RESULT YES/NO: YES CRITICAL CALLED BY: ELEUTERIO TO AND READ BACK BY: KAMINI DATE: 03/31/24 TIME: 0448 S pneumoni M.I.C. RX --------- ------ * Amoxicillin/Clavulanate <=0.5/.25 S * Cefepime <=0.25 S * Ceftriaxone <=0.25 S * Cefuroxime <=0.25 S * Clindamycin >0.5 R * Erythromycin >0.5 R * Levofloxacin 0.5 S * Meropenem <=0.06 S * Penicillin <=0.03 S * Tetracycline <=0.5 S * Trimethoprim/Sulfamethoxazole <=.25/4.7 S Vancomycin 0.25 S A&P Assessment and plan (1) Disease due to invasive Streptococcus pneumoniae: Invasive streptococcal pneumonia disease by way of bacteremia, likely related to sequelae of community-acquired pneumonia. Blood culture positive for strep pneumo on 03/30/2024 based on direct PCR from a positive blood culture bottle. Awaiting confirmation on cultures and susceptibility testing. Thus far culture plate with alphahemolytic colonies. Per discussion with lab, it appears that the port cultures 1/2 were positive while the peripheral are negative. However this is not clearly marked on the blood culture bottles therefore difficult to to be certain about this. At any rate given that CT of the chest is showing evidence of pneumonia, preceding respiratory symptoms, favor strep pneumo bacteremia to be more likely related to complication of community-acquired pneumonia rather than a primary port site infection. Repeat blood culture ordered today to determine clearance. Patient is showing clinical improvement on antibiotics. Agree with narrowing down from Zosyn/vancomycin to ceftriaxone 2 g IV every 24 hours. Anticipate patient will need at least 2 weeks of IV ceftriaxone, however final selection and duration to be determined upon pending confirmation of isolate on cultures and sensitivity testing. (2) Community acquired pneumonia: Right lower lobe pneumonia as seen on CT imaging Any right pleural effusion without current evidence of any empyema. Likely bacteremia as a complication of the pneumonia. Patient is immunocompromised with certainly puts him at a higher risk of invasive pneumococcal disease. Continue ceftriaxone 2 g IV every 24 hours. Trend leukocytosis, possible that recent administration of filgrastim may lead to some degree of persistent leukocytosis. Currently trend is improving from 23,000-17,000. Patient is currently afebrile over last 24 hours. (3) Diarrhea: 2 episodes of diarrhea today. Check C. difficile PCR. (4) Rhinovirus infection: Tested positive for rhinovirus upon admission. Possibility of acute viral infection complicated by bacterial pneumonia based on clinical progression. Plan 04/02/2024. Continue treatment with ceftriaxone 2 g IV every 24 hours. Awaiting sensitivity of Streptococcus isolate from 03/30/2024. Repeat blood cultures taken on 04/01/2024 currently pending to ascertain clearance. C. difficile PCR negative. Anticipate patient needing 2 weeks of IV ceftriaxone 2 g IV every 24 hours for treatment of strep pneumo bacteremia as a result of community-acquired pneumonia, assuming quick clearance of cultures, no recurrent fever and PCN susceptible isolate. 04/04/24: Susceptibilities now available. Strep pneumo isolate confirmed to be penicillin sensitive. Continue ceftriaxone 2 g IV every 24 hours. Blood culture from 04/01/2024 negative to date. Recommend total 2 weeks of IV ceftriaxone between April 01 to April 15, 2024. Surveillance cx to be drawn one week later after discontonuing abx. This has been ordered as outpatient. Family updated Attestations 2 Medical Necessity Statement*: per admitting Coding Level of Care Code Acute Code for [facility] Diagnoses Disease due to invasive Streptococcus pneumoniae A49.1 Community acquired pneumonia J18.9 Diarrhea R19.7 Rhinovirus infection B34.8
== END 2024-04-04 12:08 | disposition home or self-care (01) | DRG 871 ==
LOC: ER 12:28 → CSU 13:12
PROVIDERS: Student in an Organized Health Care Education/Training Program; Admitting Provider Internal Medicine; Emergency Provider Emergency Medicine; PCP Family Medicine; Visit Provider Student in an Organized Health Care Education/Training Program
DX: A41.9 Sepsis, unspecified organism (principal); J13 Pneumonia due to Streptococcus pneumoniae; C83.10 Mantle cell lymphoma, unspecified site; J98.11 Atelectasis; E87.20 Acidosis, unspecified; I48.91 Unspecified atrial fibrillation; I10 Essential (primary) hypertension; I07.1 Rheumatic tricuspid insufficiency; G47.33 Obstructive sleep apnea (adult) (pediatric); M05.9 Rheumatoid arthritis with rheumatoid factor, unspecified; B97.89 Other viral agents as the cause of diseases classified elsewhere; R19.7 Diarrhea, unspecified; E83.42 Hypomagnesemia; E80.6 Other disorders of bilirubin metabolism; Z79.60 Long term (current) use of unspecified immunomodulators and immunosuppressants; Z79.01 Long term (current) use of anticoagulants; Z95.828 Presence of other vascular implants and grafts; Z87.891 Personal history of nicotine dependence; Z80.49 Family history of malignant neoplasm of other genital organs; Z80.6 Family history of leukemia; Z80.1 Family history of malignant neoplasm of trachea, bronchus and lung; Z83.3 Family history of diabetes mellitus; Z82.49 Family history of ischemic heart disease and other diseases of the circulatory system; Z84.1 Family history of disorders of kidney and ureter
CPT/HCPCS: 0241U; 36415; 71045; 71250; 76705; 80048; 80053; 80061; 81001; 82607; 82746; 83036; 83540; 83550; 83605; 83735; 83880; 84443; 84550; 85025; 85610; 86403; 87040; 87150; 87186; 87205; 87426; 87449; 87486; 87493; 87581; 87633; 93005; 96365; 96367; 96372; 96375; 99285; A9270; J0696; J1650; J2543; J3370; J3475; J3490; J7030; J7040; J7050

== ENCOUNTER 2024-04-21 11:06 | Oncology outpatient (recurring) (ONCR) | payer MEDICARE, OTHER, SELFPAY ==
[2024-04-05 09:53] VITALS: BP 169/104; PULSE 108; RESP 16; TEMP 36.9; O2SAT 95
[2024-04-05] MEDS: cefTRIAXone 2,000 mg SDV 2000 MG IVP (10:14)
[2024-04-05 10:24] VITALS: BP 146/94; PULSE 112; RESP 16; TEMP 36.9; O2SAT 96
[2024-04-06 10:00] VITALS: BP 134/71; PULSE 95; RESP 18; TEMP 36.6; O2SAT 98
[2024-04-06] MEDS: cefTRIAXone 2,000 mg SDV 2000 MG IVP (10:17)
[2024-04-06 10:37] VITALS: BP 118/83; PULSE 98; RESP 18; TEMP 36.6; O2SAT 95
[2024-04-07] MEDS: cefTRIAXone 2,000 mg SDV 2000 MG IVP (10:02)
[2024-04-07 10:09] VITALS: BP 112/75; PULSE 98; RESP 16; TEMP 36.8; O2SAT 99
[2024-04-08 08:35] VITALS: BP 125/72; PULSE 92; RESP 18; TEMP 36.1; O2SAT 92
[2024-04-08] MEDS: cefTRIAXone 2,000 mg SDV 2000 MG IVP (09:30)
[2024-04-09 09:25] VITALS: BP 134/85; PULSE 75; RESP 16; TEMP 36.3; O2SAT 98
[2024-04-09] MEDS: cefTRIAXone 2,000 mg SDV 2000 MG IVP (09:34)
[2024-04-10] MEDS: cefTRIAXone 2,000 mg SDV 2000 MG IVP (10:07)
[2024-04-10 10:17] VITALS: BP 108/46; PULSE 62; RESP 16; TEMP 36.4; O2SAT 99
[2024-04-11] MEDS: cefTRIAXone 2,000 mg SDV 2000 MG IVP (10:22)
[2024-04-11 10:32] VITALS: BP 136/87; PULSE 66; RESP 16; TEMP 36.9; O2SAT 99
[2024-04-12 08:18] LABS: Basophils # 0.1 10^3/uL (0.0-0.1); Basophils % 0.5 %; Eosinophils # 1.2 10^3/uL (0.0-0.8); Eosinophils % 12.1 %; Hematocrit 31.6 % (37-53); Lymphocytes # 3.3 10^3/uL (0.8-4.8); Lymphocytes % 32.2 %; Mean Corpuscular HGB Conc 33.9 g/dL (30-55); Mean Corpuscular Hemoglobin 30.7 pg (27-33); Mean Corpuscular Volume 90.5 fl (82-101); Mean Platelet Volume 8.3 fL (7.4-10.4); Monocytes # 0.7 10^3/uL (0.2-0.9); Monocytes % 7.1 %; Neutrophils # 4.71 10^3/uL (1.8-7.7); Neutrophils % 46.8 %; Nucleated Red Blood Cells % 0 %; Platelet Count 254 10^3/cmm (157-399); Red Blood Count 3.49 10^6/uL (3.85-5.65); Red Cell Distribution Width 16.8 % (12.1-15.1); White Blood Count 10.08 10^3/uL (3.29-11.43)
[2024-04-12] MEDS: cefTRIAXone 2,000 mg SDV 2000 MG IVP (08:25)
[2024-04-12 08:39] LABS: Alanine Aminotransferase 23 U/L (0-41); Albumin Level 4.1 g/dL (3.5-5.2); Alkaline Phosphatase 117 U/L (40-130); Anion Gap 14.4 (5-19); Aspartate Amino Transferase 26 U/L (0-40); Blood Urea Nitrogen 23 mg/dL (8-23); Calcium 9.5 mg/dL (8.5-10.5); Carbon Dioxide 24 mmol/L (22-29); Chloride 104 mmol/L (98-107); Creatinine Clr Calc Pharmacy 60.0387; Globulin 2.5 g/dL (1.3-4.6); Glucose 139 mg/dL (65-115); Osmolality Calculated 292 mOsm/kg (285-295); Potassium 4.4 mmol/L (3.5-5.1); Sodium 138 mmol/L (136-145); Total Bilirubin 0.7 mg/dL (0.15-1.2); Total Protein 6.6 g/dL (6.6-8.7); Uric Acid 5.5 mg/dL (3.4-7.0)
[2024-04-12 08:45] LABS: Lactate Dehydrogenase 252 U/L (135-225)
[2024-04-12 09:00] VITALS: BP 118/78; PULSE 74; RESP 18; TEMP 36.5; O2SAT 97
[2024-04-13] MEDS: cefTRIAXone 2,000 mg SDV 2000 MG IVP (09:06)
[2024-04-13 09:21] VITALS: BP 107/72; PULSE 50; RESP 16; TEMP 36.4; O2SAT 98
[2024-04-14 10:05] VITALS: BP 145/89; PULSE 67; RESP 15; TEMP 36.8; O2SAT 97
[2024-04-14] MEDS: cefTRIAXone 2,000 mg SDV 2000 MG IVP (10:06)
[2024-04-15 09:30] VITALS: BP 147/77; PULSE 69; RESP 17; TEMP 36.6; O2SAT 99
[2024-04-15] MEDS: cefTRIAXone 2,000 mg SDV 2000 MG IVP (09:30)
--- NOTE | 2024-04-15 10:23 | SUR.PREOP ---
Patient arrived with port accessed to right subclavian area. Prior to discharge port access was removed by RN. 2x2 was placed over site secured with tape.
--- NOTE | 2024-04-21 07:07 | PETR_ITS ---
PROCEDURE INFORMATION: Exam: PET/CT Skull Base to Mid-thigh Exam date and time: 04/21/2024 12:40 PM Age: 78 years old Clinical indication: Condition or disease; Primary cancer: Mantle cell lymphoma; Initial oncological staging assessment LABS AND CLINICAL REPORTS: Glucose: 141 mg/dl Treatment strategy for malignancy (PET staging): Initial Staging (PI) TECHNIQUE: Imaging protocol: Following at least four-hour fasting and following the injection of radiopharmaceutical, low dose CT images were obtained. Then, PET images were obtained. Attenuation corrected images were constructed using the CT scan. Fused images of PET and CT were reviewed. The standardized uptake values (SUV) reported below are maximum values within a region of interest, expressed in gm/ml. Exam includes orbital meatal line to mid-thigh. SUV normalization method: BodyWeight Radiopharmaceutical: 11.88 mCi F-18 FDG (Fluorodeoxyglucose), IV. Time of imaging post radiopharmaceutical administration: 48 minutes Injection site: RIGHT AC COMPARISON: 1. CT chest wo con [id number] 03/31/2024 12:[address] abdomen pelvis wo con [id number] 12/11/2023 5:[address] chest w con* [id number] 12/01/2023 7:24 AM FINDINGS: Tubes, catheters and devices: Right chest port terminates near the inferior cavoatrial junction, stable. Brain: Visualized brain has normal physiologic uptake. Paranasal sinuses: Moderate left maxillary sinus mucosal thickening with low-level FDG uptake. Mild right maxillary sinus mucosal thickening with possible low-level FDG uptake. Moderate patchy bilateral ethmoid air cell opacification with mild FDG uptake. Pharynx: No abnormal uptake. Larynx: No abnormal uptake. Thyroid: 2.2 cm left thyroid nodule without FDG avidity. Bilateral low-level FDG uptake is likely inflammatory. Lungs, pleura and trachea: No abnormal uptake. Mild bibasilar subsegmental atelectasis versus scarring. Left lower lung calcified granulomata. No consolidation or mass. Interval resolution of right lower lobe consolidation. Heart: Normal physiologic uptake. Coronary arteries: Moderate coronary artery calcification. Mediastinal space: No abnormal uptake. Diaphragm: Small hiatal hernia. Liver: No abnormal uptake. Gallbladder and biliary ducts: No abnormal uptake. Mild sludge versus cholelithiasis. Pancreas: No abnormal uptake. Spleen: No abnormal uptake. Measures 13.2 cm in maximal dimension, decreased from November 2023 when it measured 17.7 cm. Adrenal glands: No abnormal uptake. Kidneys and ureters: Normal physiologic uptake. Photopenic fluid density right renal cyst. Stomach and bowel: No abnormal uptake. Reproductive: Focal asymmetric low-level FDG uptake at the left posterior superior prostate (SUV max 3.1 on axial image 97) without underlying CT abnormality. Vasculature: No abnormal uptake. Heavy systemic atherosclerotic calcification without aortic aneurysm. Lymph nodes: Asymmetric right hilar FDG uptake without discretely measurable underlying lymph node shows SUV max 4.2 on axial image 237. Otherwise no lymphadenopathy in the head, neck, chest, abdomen, pelvis, and extremities. Calcified mediastinal and hilar lymph nodes in keeping with sequela of old granulomatous disease. Skeleton: No abnormal uptake in the visualized axial and appendicular skeleton. Degenerative change along the spine and sacroiliac joints. Soft tissues: No abnormal uptake. Photopenic 1.2 cm posterior neck superficial subcutaneous hypodense nodule with broad dermal interface characteristic of epidermal inclusion cyst. Small fat containing left inguinal hernia. METRICS: Mediastinal blood pool: SUV mean 2.2 Liver uptake: SUV mean 2.8 PET/PET skull to thigh INIT [id number] IMPRESSION: 1. Compared to November 2023, complete versus near complete treatment response. 2. Asymmetric right hilar FDG uptake without discretely measurable underlying lymph node suspected to be reactive in light of recent right lower lobe pneumonia, residual lymphomatous disease not excluded. Otherwise resolved widespread lymphadenopathy and splenomegaly. 3. Mild inflammatory sinus disease. 4. 2.2 cm non FDG avid left thyroid nodule. Recommend nonemergent thyroid ultrasound. 5. Focal low-level FDG uptake at left posterior superior prostate is nonspecific, could represent prostatitis, neoplasm not excluded.
== END 2024-04-25 23:59 | disposition home or self-care (01) ==
LOC: ONCMED 11:06 → RAD 11:06 → ONCMED 15:33
PROVIDERS: PCP Family Medicine; Visit Provider Internal Medicine
DX: C83.02 Small cell B-cell lymphoma, intrathoracic lymph nodes (principal)
CPT/HCPCS: 78815; 80053; 83615; 84550; 85025; 96374; 99214; A9552; J0696

== ENCOUNTER 2024-04-28 08:00 | Oncology outpatient (recurring) (ONCR) | payer MEDICARE, OTHER, SELFPAY ==
[2024-04-27 07:57] LABS: Basophils # 0.1 10^3/uL (0.0-0.1); Eosinophils # 0.7 10^3/uL (0.0-0.8); Eosinophils % 10.2 %; Hematocrit 35.4 % (37-53); Lymphocytes # 2.5 10^3/uL (0.8-4.8); Lymphocytes % 36.4 %; Mean Corpuscular HGB Conc 33.3 g/dL (30-55); Mean Corpuscular Hemoglobin 31.8 pg (27-33); Mean Corpuscular Volume 95.4 fl (82-101); Mean Platelet Volume 8.8 fL (7.4-10.4); Monocytes # 0.6 10^3/uL (0.2-0.9); Monocytes % 8.2 %; Neutrophils # 3.02 10^3/uL (1.8-7.7); Neutrophils % 44.1 %; Nucleated Red Blood Cells % 0 %; Platelet Count 168 10^3/cmm (157-399); Red Blood Count 3.71 10^6/uL (3.85-5.65); White Blood Count 6.86 10^3/uL (3.29-11.43)
[2024-04-27 08:14] LABS: Alanine Aminotransferase 53 U/L (0-41); Alkaline Phosphatase 130 U/L (40-130); Aspartate Amino Transferase 33 U/L (0-40); Blood Urea Nitrogen 23 mg/dL (8-23); Calcium 9.6 mg/dL (8.5-10.5); Carbon Dioxide 24 mmol/L (22-29); Chloride 107 mmol/L (98-107); Ferritin 402 ng/mL (30-400); Globulin 2.6 g/dL (1.3-4.6); Glucose 131 mg/dL (65-115); Iron 81 ug/dL (59-158); Magnesium 1.7 mg/dL (1.7-2.3); Osmolality Calculated 297 mOsm/kg (285-295); Percent Saturation 27.8 % (20-50); Sodium 141 mmol/L (136-145); Total Bilirubin 0.9 mg/dL (0.15-1.2); Total Iron Binding Capacity 291 mcg/dl; Total Protein 6.6 g/dL (6.6-8.7); Unsaturated Iron Binding 210 ug/dL (112-347); Uric Acid 5.5 mg/dL (3.4-7.0)
[2024-04-27 08:19] LABS: Lactate Dehydrogenase 197 U/L (135-225)
[2024-04-27 08:28] LABS: Vitamin B12 1274 pg/mL (232-1245)
[2024-04-27 09:28] LABS: Folate Level > 20.0 ng/mL (4.5-32.2)
[2024-04-27] MEDS: sodium chloride 0.9% 250 ML 75 ML IV (10:04)
[2024-04-27] MEDS: acetaminophen 325 mg Tablet 650 MG PO (10:05)
[2024-04-27] MEDS: diphenhydrAMINE 50 mg/mL SDV 1mL 25 MG IVP (10:05)
[2024-04-27] MEDS: dexamethasone 4 mg/mL INJ 5 mL 12 MG IVP (10:10)
[2024-04-27] MEDS: ondansetron 2 mg/ML SDV 2 mL 8 MG IVP (10:13)
[2024-04-27] MEDS: famotidine 20 mg/2 mL INJ 40 MG IVP (10:17)
[2024-04-27 10:38] VITALS: BP 118/78; PULSE 58; RESP 18; TEMP 36.1; O2SAT 96
[2024-04-27 10:54] VITALS: BP 126/75; PULSE 57; RESP 18; TEMP 36.1; O2SAT 99
[2024-04-27 11:12] VITALS: BP 122/80; PULSE 58; RESP 18; TEMP 36.2; O2SAT 98
[2024-04-27] MEDS: SODIUM CHLORIDE 0.9% IV (13:12)
[2024-04-27] MEDS: BENDAMUSTINE IV (13:12)
[2024-04-27 16:27] VITALS: BP 124/76; PULSE 78; RESP 18; TEMP 36.6; O2SAT 97
[2024-04-28 07:53] VITALS: BP 145/87; PULSE 86; RESP 16; TEMP 35.9; O2SAT 96
[2024-04-28] MEDS: sodium chloride 0.9% 250 ML 75 ML IV (08:14)
[2024-04-28] MEDS: dexamethasone 4 mg/mL INJ 5 mL 12 MG IVP (08:18)
[2024-04-28] MEDS: palonosetron 0.25 mg/5 mL SDV IVP (08:23)
[2024-04-28] MEDS: SODIUM CHLORIDE 0.9% IV (09:04)
[2024-04-28] MEDS: BENDAMUSTINE IV (09:04)
[2024-04-28] MEDS: pegfilgrastim 6 mg/0.6 mL Kit (onpro) SUBCUT (10:18)
[2024-04-28 10:27] VITALS: BP 145/79; PULSE 75; RESP 17; TEMP 35.9; O2SAT 99
== END 2024-04-28 23:59 | disposition home or self-care (01) ==
PROVIDERS: PCP Family Medicine; Visit Provider Internal Medicine
DX: Z53.9 Procedure and treatment not carried out, unspecified reason; Z79.899 Other long term (current) drug therapy; Z51.11 Encounter for antineoplastic chemotherapy; Z79.52 Long term (current) use of systemic steroids; C83.10 Mantle cell lymphoma, unspecified site
CPT/HCPCS: 80053; 82607; 82728; 82746; 83540; 83550; 83615; 83735; 84550; 85025; 87040; 96368; 96375; 96377; 96413; 96415; 99213; J1100; J1200; J2405; J2469; J2506; J3490; J7040; J7050; J9034; Q5115

== ENCOUNTER → 2024-05-15 08:50 | Outpatient (BNVA) | payer MEDICARE, OTHER, SELFPAY | PROVIDERS: PCP Family Medicine; Visit Provider Internal Medicine Rheumatology | DX: M05.79 Rheumatoid arthritis with rheumatoid factor of multiple sites without organ or systems involvement (principal); Z79.899 Other long term (current) drug therapy; Z71.89 Other specified counseling | CPT/HCPCS: 99214 ==

== ENCOUNTER 2024-05-26 08:00 | Oncology outpatient (recurring) (ONCR) | payer MEDICARE, OTHER, SELFPAY ==
--- NOTE | 2024-05-03 15:30 | USR_ITS ---
PROCEDURE INFORMATION: Exam: US Soft Tissue Head and Neck, Thyroid Exam date and time: 05/03/2024 3:33 PM Age: 78 years old Clinical indication: Condition or disease; Other: Mantle cell lymphoma; Additional info: Mantle cell lymphoma, needs completed before jun 02 TECHNIQUE: Imaging protocol: Real-time ultrasound scan of the neck with image documentation. Exam focused on the thyroid. COMPARISON: PT PET skull to thigh INIT [id number] 04/21/2024 12:40 PM COMPARISON MORE: CT chest w con* [id number] 12/01/2023 7:24 AM FINDINGS: Right thyroid lobe: Subcentimeter colloid cysts of the right thyroid lobe. Left thyroid lobe: Nodules as below: Left midpole thyroid nodule, 3.0 x 1.9 x 2.6 cm, almost completely cystic, anechoic, wider than tall, lobulated/irregular margin, TI-RADS 2. Left inferior pole thyroid nodule, 1.6 x 0.7 x 1.2 cm, almost completely cystic anechoic, wider than tall, lobulated/irregular margins, TI-RADS 2 Isthmus: No nodules. Lymph nodes: Prominent right cervical chain lymph node measuring 2.1 x 0.8 x 2.6 cm with cortex measuring up to 7 mm. US/US thyroid [id number] IMPRESSION: Two cystic nodules at the left thyroid, TIRADS 2. No FNA recommended.
[2024-05-04 08:40] LABS: Hematocrit 35.9 % (37-53); Mean Corpuscular HGB Conc 33.1 g/dL (30-55); Mean Corpuscular Hemoglobin 31.5 pg (27-33); Mean Platelet Volume 8.4 fL (7.4-10.4); Platelet Count 102 10^3/cmm (157-399); Red Blood Count 3.78 10^6/uL (3.85-5.65); Red Cell Distribution Width 16.9 % (12.1-15.1); White Blood Count 24.42 10^3/uL (3.29-11.43)
[2024-05-04 08:59] LABS: Alanine Aminotransferase 34 U/L (0-41); Alkaline Phosphatase 177 U/L (40-130); Anion Gap 15.5 (5-19); Aspartate Amino Transferase 31 U/L (0-40); Blood Urea Nitrogen 19 mg/dL (8-23); C Reactive Protein 10.9 mg/L (0.0-4.9); Carbon Dioxide 26 mmol/L (22-29); Chloride 101 mmol/L (98-107); Creatinine Clr Calc Pharmacy 75.1429; Globulin 2.2 g/dL (1.3-4.6); Glucose 173 mg/dL (65-115); Lactate Dehydrogenase 508 U/L (135-225); Osmolality Calculated 294 mOsm/kg (285-295); Potassium 3.5 mmol/L (3.5-5.1); Sodium 139 mmol/L (136-145); Total Bilirubin 1.4 mg/dL (0.15-1.2); Total Protein 6.2 g/dL (6.6-8.7)
[2024-05-04 09:27] LABS: Slide Review Slide Review Perform
[2024-05-04 09:29] LABS: Absolute Eosinophils 0.2 10^3/cmm (0.0-0.7); Absolute Neutrophil 20.8 10^3/cmm (1.4-6.5); Absolute Segmented Neutrophil 19.3 10/cmm (1.6-7.1); Anisocytosis Trace; Band Neutrophils Absolute 1.5 10^3/cmm (0.0-1.2); Eosinophils 1 %; Erythrocyte Sedimentation Rate 16 mm/hr (0-10); Hypersegmented Polys Trace; Lymphocytes 4 %; Platelet Estimate Decreased (Normal); Segmented Neutrophils 79 %; Total Cells Counted 100 (0-100)
[2024-05-10 08:13] LABS: Basophils # 0.1 10^3/uL (0.0-0.1); Basophils % 0.5 %; Eosinophils # 0.5 10^3/uL (0.0-0.8); Eosinophils % 4.9 %; Hematocrit 34.5 % (37-53); Lymphocytes # 0.5 10^3/uL (0.8-4.8); Lymphocytes % 5.3 %; Mean Corpuscular HGB Conc 33.3 g/dL (30-55); Mean Corpuscular Hemoglobin 31.2 pg (27-33); Mean Corpuscular Volume 93.5 fl (82-101); Mean Platelet Volume 9.3 fL (7.4-10.4); Monocytes # 0.7 10^3/uL (0.2-0.9); Monocytes % 6.7 %; Neutrophils % 77.1 %; Nucleated Red Blood Cells % 0 %; Platelet Count 139 10^3/cmm (157-399); Red Blood Count 3.69 10^6/uL (3.85-5.65); Red Cell Distribution Width 15.9 % (12.1-15.1); White Blood Count 9.99 10^3/uL (3.29-11.43)
[2024-05-10 08:31] LABS: Alanine Aminotransferase 38 U/L (0-41); Albumin Level 4.2 g/dL (3.5-5.2); Alkaline Phosphatase 180 U/L (40-130); Aspartate Amino Transferase 29 U/L (0-40); Creatinine Clr Calc Pharmacy 56.7403; Globulin 2.4 g/dL (1.3-4.6); Lactate Dehydrogenase 365 U/L (135-225); Total Bilirubin 1.2 mg/dL (0.15-1.2); Total Protein 6.6 g/dL (6.6-8.7)
[2024-05-10 08:38] LABS: Slide Review Slide Review Perform
[2024-05-17 08:31] LABS: Basophils # 0.1 10^3/uL (0.0-0.1); Eosinophils # 0.2 10^3/uL (0.0-0.8); Eosinophils % 3.1 %; Lymphocytes # 0.6 10^3/uL (0.8-4.8); Lymphocytes % 10.4 %; Mean Corpuscular HGB Conc 34.2 g/dL (30-55); Mean Corpuscular Hemoglobin 31.4 pg (27-33); Mean Corpuscular Volume 91.8 fl (82-101); Mean Platelet Volume 8.3 fL (7.4-10.4); Monocytes # 0.7 10^3/uL (0.2-0.9); Monocytes % 12.5 %; Neutrophils % 71.3 %; Nucleated Red Blood Cells % 0 %; Platelet Count 207 10^3/cmm (157-399); Red Blood Count 3.92 10^6/uL (3.85-5.65); Red Cell Distribution Width 15.9 % (12.1-15.1); White Blood Count 5.76 10^3/uL (3.29-11.43)
[2024-05-17 08:52] LABS: Alanine Aminotransferase 28 U/L (0-41); Albumin Level 4.4 g/dL (3.5-5.2); Alkaline Phosphatase 137 U/L (40-130); Anion Gap 17.1 (5-19); Aspartate Amino Transferase 28 U/L (0-40); Blood Urea Nitrogen 13 mg/dL (8-23); Calcium 9.6 mg/dL (8.5-10.5); Carbon Dioxide 24 mmol/L (22-29); Chloride 104 mmol/L (98-107); Creatinine Clr Calc Pharmacy 69.3493; Globulin 2.4 g/dL (1.3-4.6); Glucose 122 mg/dL (65-115); Osmolality Calculated 293 mOsm/kg (285-295); Potassium 4.1 mmol/L (3.5-5.1); Sodium 141 mmol/L (136-145); Total Bilirubin 1.2 mg/dL (0.15-1.2); Total Protein 6.8 g/dL (6.6-8.7)
[2024-05-25 10:30] LABS: Basophils # 0.1 10^3/uL (0.0-0.1); Basophils % 1.5 %; Eosinophils # 0.3 10^3/uL (0.0-0.8); Eosinophils % 4.4 %; Hematocrit 35.1 % (37-53); Lymphocytes # 0.5 10^3/uL (0.8-4.8); Lymphocytes % 8.6 %; Mean Corpuscular HGB Conc 34.8 g/dL (30-55); Mean Corpuscular Hemoglobin 31.7 pg (27-33); Mean Corpuscular Volume 91.2 fl (82-101); Mean Platelet Volume 8.6 fL (7.4-10.4); Monocytes # 0.7 10^3/uL (0.2-0.9); Monocytes % 10.9 %; Neutrophils # 4.51 10^3/uL (1.8-7.7); Neutrophils % 73.1 %; Nucleated Red Blood Cells % 0 %; Platelet Count 157 10^3/cmm (157-399); Red Blood Count 3.85 10^6/uL (3.85-5.65); Red Cell Distribution Width 15.4 % (12.1-15.1); White Blood Count 6.16 10^3/uL (3.29-11.43)
[2024-05-25 10:48] LABS: Alanine Aminotransferase 29 U/L (0-41); Albumin Level 4.2 g/dL (3.5-5.2); Alkaline Phosphatase 110 U/L (40-130); Anion Gap 15.4 (5-19); Aspartate Amino Transferase 32 U/L (0-40); Blood Urea Nitrogen 17 mg/dL (8-23); Calcium 9.6 mg/dL (8.5-10.5); Carbon Dioxide 26 mmol/L (22-29); Chloride 103 mmol/L (98-107); Globulin 2.3 g/dL (1.3-4.6); Glucose 129 mg/dL (65-115); Lactate Dehydrogenase 417 U/L (135-225); Osmolality Calculated 293 mOsm/kg (285-295); Potassium 4.4 mmol/L (3.5-5.1); Sodium 140 mmol/L (136-145); Total Protein 6.5 g/dL (6.6-8.7)
[2024-05-25] MEDS: sodium chloride 0.9% 250 ML 75 ML IV (12:50)
[2024-05-25] MEDS: dexamethasone 4 mg/mL INJ 5 mL 12 MG IVP (12:50)
[2024-05-25] MEDS: diphenhydrAMINE 50 mg/mL SDV 1mL 25 MG IVP (12:51)
[2024-05-25] MEDS: ondansetron 2 mg/ML SDV 2 mL 8 MG IVP (12:52)
[2024-05-25] MEDS: acetaminophen 325 mg Tablet 650 MG PO (12:53)
[2024-05-25] MEDS: famotidine 20 mg/2 mL INJ 40 MG IVP (12:53)
[2024-05-25 14:45] VITALS: BP 122/74; PULSE 84; RESP 18; TEMP 36.1; O2SAT 98
[2024-05-25] MEDS: BENDAMUSTINE IV (15:59)
[2024-05-25] MEDS: SODIUM CHLORIDE 0.9% IV (15:59)
[2024-05-25 16:00] VITALS: BP 122/80; PULSE 66; RESP 18; TEMP 36.3; O2SAT 98
[2024-05-25 16:31] VITALS: BP 120/78; PULSE 78; RESP 18; TEMP 36.4; O2SAT 98
[2024-05-26] MEDS: sodium chloride 0.9% 250 ML 75 ML IV (08:25)
[2024-05-26] MEDS: dexamethasone 4 mg/mL INJ 5 mL 12 MG IVP (08:29)
[2024-05-26] MEDS: palonosetron 0.25 mg/5 mL SDV IVP (08:33)
[2024-05-26 09:10] VITALS: BP 156/93; PULSE 90; RESP 17; TEMP 35.9; O2SAT 96
[2024-05-26] MEDS: BENDAMUSTINE IV (09:15)
[2024-05-26] MEDS: SODIUM CHLORIDE 0.9% IV (09:15)
[2024-05-26] MEDS: pegfilgrastim 6 mg/0.6 mL Kit (onpro) SUBCUT (09:47)
[2024-05-26 09:56] VITALS: BP 137/81; PULSE 87; RESP 17; TEMP 36.6; O2SAT 97
== END 2024-05-26 23:59 | disposition home or self-care (01) ==
PROVIDERS: Internal Medicine Rheumatology; PCP Family Medicine; Visit Provider Internal Medicine
DX: Z53.9 Procedure and treatment not carried out, unspecified reason; Z51.11 Encounter for antineoplastic chemotherapy; C83.1A Mantle cell lymphoma, in remission; Z79.52 Long term (current) use of systemic steroids; Z79.899 Other long term (current) drug therapy
CPT/HCPCS: 36591; 76536; 80053; 80076; 82565; 83615; 85007; 85025; 85651; 86140; 96375; 96377; 96413; 96415; 96417; 99213; 99214; J1100; J1200; J2405; J2469; J2506; J3490; J7040; J7050; J9034; Q5115

== ENCOUNTER → 2024-06-05 08:37 | Outpatient (BNVA) | payer MEDICARE, OTHER, SELFPAY | PROVIDERS: PCP Family Medicine; Visit Provider Nurse Practitioner Family | DX: L57.8 Other skin changes due to chronic exposure to nonionizing radiation (principal); Z08 Encounter for follow-up examination after completed treatment for malignant neoplasm; Z85.828 Personal history of other malignant neoplasm of skin; D48.5 Neoplasm of uncertain behavior of skin; L57.0 Actinic keratosis | CPT/HCPCS: 11102; 17000; 99213 ==

== ENCOUNTER 2024-06-15 09:46 | Oncology outpatient (recurring) (ONCR) | payer MEDICARE, OTHER, SELFPAY ==
[2024-06-15 10:38] LABS: Basophils # 0.1 10^3/uL (0.0-0.1); Basophils % 2.2 %; Eosinophils # 0.3 10^3/uL (0.0-0.8); Eosinophils % 7.3 %; Hematocrit 33.5 % (37-53); Lymphocytes # 0.4 10^3/uL (0.8-4.8); Lymphocytes % 9.5 %; Mean Corpuscular HGB Conc 34.9 g/dL (30-55); Mean Corpuscular Hemoglobin 31.7 pg (27-33); Mean Corpuscular Volume 90.8 fl (82-101); Mean Platelet Volume 8.5 fL (7.4-10.4); Monocytes # 0.6 10^3/uL (0.2-0.9); Monocytes % 16.6 %; Neutrophils % 59.8 %; Nucleated Red Blood Cells % 0 %; Platelet Count 181 10^3/cmm (157-399); Red Blood Count 3.69 10^6/uL (3.85-5.65); Red Cell Distribution Width 14.9 % (12.1-15.1); White Blood Count 3.68 10^3/uL (3.29-11.43)
[2024-06-15 10:46] LABS: Alanine Aminotransferase 20 U/L (0-41); Albumin Level 4.4 g/dL (3.5-5.2); Alkaline Phosphatase 100 U/L (40-130); Anion Gap 18.3 (5-19); Aspartate Amino Transferase 25 U/L (0-40); Blood Urea Nitrogen 24 mg/dL (8-23); Calcium 9.8 mg/dL (8.5-10.5); Carbon Dioxide 23 mmol/L (22-29); Chloride 101 mmol/L (98-107); Creatinine Clr Calc Pharmacy 53.7415; Globulin 2.5 g/dL (1.3-4.6); Glucose 156 mg/dL (65-115); Lactate Dehydrogenase 386 U/L (135-225); Osmolality Calculated 293 mOsm/kg (285-295); Phosphorus 3.8 mg/dL (2.5-4.5); Potassium 4.3 mmol/L (3.5-5.1); Sodium 138 mmol/L (136-145); Total Bilirubin 1.1 mg/dL (0.15-1.2); Total Protein 6.9 g/dL (6.6-8.7); Uric Acid 6.3 mg/dL (3.4-7.0)
[2024-06-15 10:53] LABS: Erythrocyte Sedimentation Rate 12 mm/hr (0-10)
[2024-06-16 08:34] LABS: Beta-2-Microglobulin 4.24 mg/L (< OR = 2.51)
== END 2024-06-23 23:59 | disposition home or self-care (01) ==
PROVIDERS: PCP Family Medicine; Visit Provider Internal Medicine
DX: C83.13 Mantle cell lymphoma, intra-abdominal lymph nodes (principal); R74.01 Elevation of levels of liver transaminase levels; I48.21 Permanent atrial fibrillation; I10 Essential (primary) hypertension; D70.1 Agranulocytosis secondary to cancer chemotherapy; T45.1X5A Adverse effect of antineoplastic and immunosuppressive drugs, initial encounter; E04.1 Nontoxic single thyroid nodule; Z87.891 Personal history of nicotine dependence; Z95.828 Presence of other vascular implants and grafts; Z92.21 Personal history of antineoplastic chemotherapy
CPT/HCPCS: 36591; 80053; 82232; 83615; 84100; 84550; 85025; 85651; 99214

== ENCOUNTER → 2024-08-01 10:54 | Outpatient (BNVA) | payer MEDICARE, OTHER, SELFPAY | PROVIDERS: PCP Family Medicine; Visit Provider Internal Medicine Cardiovascular Disease | DX: I10 Essential (primary) hypertension (principal); Z79.01 Long term (current) use of anticoagulants; E78.5 Hyperlipidemia, unspecified; I36.1 Nonrheumatic tricuspid (valve) insufficiency; R22.2 Localized swelling, mass and lump, trunk | CPT/HCPCS: 99214 ==

== ENCOUNTER 2024-08-17 07:30 | Oncology outpatient (recurring) (ONCR) | payer MEDICARE, OTHER, SELFPAY ==
[2024-07-27 10:06] LABS: Basophils # 0.1 10^3/uL (0.0-0.1); Basophils % 1.1 %; Eosinophils # 0.4 10^3/uL (0.0-0.8); Eosinophils % 7.9 %; Hematocrit 35.3 % (37-53); Lymphocytes # 0.9 10^3/uL (0.8-4.8); Lymphocytes % 16.5 %; Mean Corpuscular HGB Conc 35.1 g/dL (30-55); Mean Corpuscular Volume 91.2 fl (82-101); Mean Platelet Volume 8.5 fL (7.4-10.4); Monocytes # 0.7 10^3/uL (0.2-0.9); Monocytes % 11.9 %; Neutrophils # 3.45 10^3/uL (1.8-7.7); Neutrophils % 62.1 %; Nucleated Red Blood Cells % 0 %; Platelet Count 186 10^3/cmm (157-399); Red Blood Count 3.87 10^6/uL (3.85-5.65); Red Cell Distribution Width 15.3 % (12.1-15.1); White Blood Count 5.56 10^3/uL (3.29-11.43)
[2024-07-27 10:19] LABS: Erythrocyte Sedimentation Rate 7 mm/hr (0-10)
[2024-07-27 10:26] LABS: Alanine Aminotransferase 22 U/L (0-41); Albumin Level 4.3 g/dL (3.5-5.2); Alkaline Phosphatase 99 U/L (40-130); Aspartate Amino Transferase 22 U/L (0-40); Blood Urea Nitrogen 23 mg/dL (8-23); C Reactive Protein 4.5 mg/L (0.0-4.9); Calcium 9.3 mg/dL (8.5-10.5); Carbon Dioxide 22 mmol/L (22-29); Chloride 104 mmol/L (98-107); Globulin 2.1 g/dL (1.3-4.6); Glucose 139 mg/dL (65-115); Lactate Dehydrogenase 208 U/L (135-225); Osmolality Calculated 292 mOsm/kg (285-295); Phosphorus 3.7 mg/dL (2.5-4.5); Sodium 138 mmol/L (136-145); Total Bilirubin 1.2 mg/dL (0.15-1.2); Total Protein 6.4 g/dL (6.6-8.7); Uric Acid 6.6 mg/dL (3.4-7.0)
[2024-07-27 10:29] LABS: Immunoglobulin IGA 76 mg/dL (70-400); Immunoglobulin IGG 491 mg/dL (700-1600); Immunoglobulin IGM < 25 mg/dL (40-230)
[2024-07-28 05:44] LABS: PROTEIN, TOTAL 6.2 g/dL (6.1-8.1)
[2024-07-28 21:09] LABS: ALBUMIN 3.9 g/dL (3.8-4.8); ALPHA 1 GLOBULIN 0.4 g/dL (0.2-0.3); ALPHA 2 GLOBULIN 0.7 g/dL (0.5-0.9); BETA 1 GLOBULIN 0.4 g/dL (0.4-0.6); BETA 2 GLOBULIN 0.3 g/dL (0.2-0.5); GAMMA GLOBULIN 0.4 g/dL (0.8-1.7)
[2024-07-31 15:44] LABS: Immunofixation Serum Normal pattern.
[2024-08-17 07:56] LABS: Basophils # 0.1 10^3/uL (0.0-0.1); Eosinophils # 0.3 10^3/uL (0.0-0.8); Eosinophils % 7.1 %; Hematocrit 38.6 % (37-53); Lymphocytes % 21.2 %; Mean Corpuscular HGB Conc 33.2 g/dL (30-55); Mean Corpuscular Hemoglobin 31.3 pg (27-33); Mean Corpuscular Volume 94.4 fl (82-101); Mean Platelet Volume 8.8 fL (7.4-10.4); Monocytes # 0.6 10^3/uL (0.2-0.9); Neutrophils # 2.68 10^3/uL (1.8-7.7); Neutrophils % 56.2 %; Nucleated Red Blood Cells % 0 %; Platelet Count 164 10^3/cmm (157-399); Red Blood Count 4.09 10^6/uL (3.85-5.65); Red Cell Distribution Width 15.5 % (12.1-15.1); White Blood Count 4.77 10^3/uL (3.29-11.43)
[2024-08-17 08:24] LABS: Alanine Aminotransferase 28 U/L (0-41); Albumin Level 4.4 g/dL (3.5-5.2); Alkaline Phosphatase 106 U/L (40-130); Anion Gap 12.7 (5-19); Aspartate Amino Transferase 25 U/L (0-40); Blood Urea Nitrogen 21 mg/dL (8-23); Calcium 9.8 mg/dL (8.5-10.5); Carbon Dioxide 27 mmol/L (22-29); Chloride 105 mmol/L (98-107); Creatinine Clr Calc Pharmacy 54.4715; Globulin 2.2 g/dL (1.3-4.6); Glucose 136 mg/dL (65-115); Osmolality Calculated 295 mOsm/kg (285-295); Potassium 4.7 mmol/L (3.5-5.1); Sodium 140 mmol/L (136-145); Total Bilirubin 1.1 mg/dL (0.15-1.2); Total Protein 6.6 g/dL (6.6-8.7)
== END 2024-08-23 23:59 | disposition home or self-care (01) ==
PROVIDERS: Nurse Practitioner Family; PCP Family Medicine; Visit Provider Internal Medicine
DX: Z53.9 Procedure and treatment not carried out, unspecified reason; C83.13 Mantle cell lymphoma, intra-abdominal lymph nodes; R03.0 Elevated blood-pressure reading, without diagnosis of hypertension; Z87.891 Personal history of nicotine dependence; I48.21 Permanent atrial fibrillation; I10 Essential (primary) hypertension; D70.1 Agranulocytosis secondary to cancer chemotherapy; T45.1X5A Adverse effect of antineoplastic and immunosuppressive drugs, initial encounter; E04.1 Nontoxic single thyroid nodule; M06.9 Rheumatoid arthritis, unspecified; Z79.01 Long term (current) use of anticoagulants; Z79.899 Other long term (current) drug therapy
CPT/HCPCS: 36415; 36591; 80053; 82784; 83010; 83615; 84100; 84155; 84165; 84550; 85025; 85045; 85651; 86140; 86334; 99213

== ENCOUNTER → 2024-08-21 09:07 | Outpatient (BNVA) | payer MEDICARE, OTHER, SELFPAY | PROVIDERS: PCP Family Medicine; Visit Provider Internal Medicine Rheumatology | DX: M05.79 Rheumatoid arthritis with rheumatoid factor of multiple sites without organ or systems involvement (principal); Z79.899 Other long term (current) drug therapy; Z71.89 Other specified counseling; C83.13 Mantle cell lymphoma, intra-abdominal lymph nodes | CPT/HCPCS: 99214 ==

== ENCOUNTER 2024-09-07 08:00 | Oncology outpatient (recurring) (ONCR) | payer MEDICARE, OTHER, SELFPAY ==
[2024-08-30 14:57] LABS: Basophils # 0.1 10^3/uL (0.0-0.1); Basophils % 1.3 %; Eosinophils # 0.3 10^3/uL (0.0-0.8); Eosinophils % 5.8 %; Hematocrit 39.6 % (37-53); Lymphocytes # 1.3 10^3/uL (0.8-4.8); Lymphocytes % 30.1 %; Mean Corpuscular HGB Conc 34.3 g/dL (30-55); Mean Corpuscular Hemoglobin 31.8 pg (27-33); Mean Corpuscular Volume 92.5 fl (82-101); Monocytes # 0.7 10^3/uL (0.2-0.9); Monocytes % 15.3 %; Neutrophils # 2.07 10^3/uL (1.8-7.7); Neutrophils % 46.6 %; Nucleated Red Blood Cells % 0 %; Platelet Count 153 10^3/cmm (157-399); Red Blood Count 4.28 10^6/uL (3.85-5.65); White Blood Count 4.45 10^3/uL (3.29-11.43)
[2024-08-30 14:58] LABS: Erythrocyte Sedimentation Rate 5 mm/hr (0-10)
[2024-08-30 15:14] LABS: Alanine Aminotransferase 23 U/L (0-41); Albumin Level 4.4 g/dL (3.5-5.2); Alkaline Phosphatase 108 U/L (40-130); Anion Gap 15.1 (5-19); Aspartate Amino Transferase 26 U/L (0-40); Blood Urea Nitrogen 19 mg/dL (8-23); Calcium 9.7 mg/dL (8.5-10.5); Carbon Dioxide 26 mmol/L (22-29); Chloride 102 mmol/L (98-107); Creatinine Clr Calc Pharmacy 54.7467; Globulin 2.6 g/dL (1.3-4.6); Glucose 109 mg/dL (65-115); Immunoglobulin IGA 79 mg/dL (70-400); Immunoglobulin IGG 528 mg/dL (700-1600); Immunoglobulin IGM < 25 mg/dL (40-230); Lactate Dehydrogenase 364 U/L (135-225); Osmolality Calculated 291 mOsm/kg (285-295); Phosphorus 3.5 mg/dL (2.5-4.5); Potassium 4.1 mmol/L (3.5-5.1); Sodium 139 mmol/L (136-145); Total Bilirubin 1.2 mg/dL (0.15-1.2); Uric Acid 7.2 mg/dL (3.4-7.0)
[2024-08-31 06:05] LABS: PROTEIN, TOTAL 6.5 g/dL (6.1-8.1)
[2024-08-31 20:25] LABS: ALBUMIN 4.3 g/dL (3.8-4.8); ALPHA 1 GLOBULIN 0.3 g/dL (0.2-0.3); ALPHA 2 GLOBULIN 0.8 g/dL (0.5-0.9); BETA 1 GLOBULIN 0.4 g/dL (0.4-0.6); BETA 2 GLOBULIN 0.3 g/dL (0.2-0.5); GAMMA GLOBULIN 0.5 g/dL (0.8-1.7)
[2024-09-03 20:45] LABS: Immunofixation Serum Normal pattern.
[2024-09-06 08:04] LABS: Basophils # 0.1 10^3/uL (0.0-0.1); Basophils % 1.5 %; Eosinophils # 0.4 10^3/uL (0.0-0.8); Eosinophils % 8.9 %; Hematocrit 36.3 % (37-53); Lymphocytes % 25.3 %; Mean Corpuscular HGB Conc 35.3 g/dL (30-55); Mean Corpuscular Volume 93.6 fl (82-101); Mean Platelet Volume 8.8 fL (7.4-10.4); Monocytes # 0.6 10^3/uL (0.2-0.9); Monocytes % 15.3 %; Neutrophils # 1.89 10^3/uL (1.8-7.7); Neutrophils % 48.2 %; Nucleated Red Blood Cells % 0 %; Platelet Count 154 10^3/cmm (157-399); Red Blood Count 3.88 10^6/uL (3.85-5.65); Red Cell Distribution Width 14.8 % (12.1-15.1); White Blood Count 3.92 10^3/uL (3.29-11.43)
[2024-09-06 08:27] LABS: Alanine Aminotransferase 26 U/L (0-41); Albumin Level 4.3 g/dL (3.5-5.2); Alkaline Phosphatase 107 U/L (40-130); Aspartate Amino Transferase 31 U/L (0-40); Blood Urea Nitrogen 21 mg/dL (8-23); Calcium 9.6 mg/dL (8.5-10.5); Carbon Dioxide 19 mmol/L (22-29); Chloride 104 mmol/L (98-107); Creatinine Clr Calc Pharmacy 53.9269; Globulin 2.4 g/dL (1.3-4.6); Glucose 137 mg/dL (65-115); Osmolality Calculated 293 mOsm/kg (285-295); Phosphorus 4.1 mg/dL (2.5-4.5); Sodium 139 mmol/L (136-145); Total Bilirubin 0.9 mg/dL (0.15-1.2); Total Protein 6.7 g/dL (6.6-8.7); Uric Acid 3.7 mg/dL (3.4-7.0)
[2024-09-06 08:30] LABS: Lactate Dehydrogenase 386 U/L (135-225)
[2024-09-06 09:12] LABS: Immunoglobulin IGA 80 mg/dL (70-400); Immunoglobulin IGG 511 mg/dL (700-1600)
[2024-09-06 09:16] LABS: Immunoglobulin IGM < 25 mg/dL (40-230)
[2024-09-06 10:02] LABS: Hepatitis B Core AB, Total Non-Reactive (Nonreactive); Hepatitis B Surface AB < 3.5 (11.5-1000); Hepatitis B Surface Antigen Non-Reactive (Nonreactive)
[2024-09-06] MEDS: sodium chloride 0.9% 250 ML 75 ML IV (11:04)
[2024-09-06] MEDS: dexamethasone 4 mg/mL INJ 5 mL 12 MG IVP (11:04)
[2024-09-06] MEDS: diphenhydrAMINE 50 mg/mL SDV 1mL 25 MG IVP (11:04)
[2024-09-06] MEDS: acetaminophen 325 mg Tablet 650 MG PO (11:05)
[2024-09-06] MEDS: obinutuzumab 100 MG in sodium chloride 0.9% (100 ml) 100 ML 26 MG IV (11:27)
[2024-09-06 16:14] VITALS: BP 151/90; PULSE 69; O2SAT 96
[2024-09-07] VITALS (8 sets, daily range): BP systolic 116–142; BP diastolic 70–94; PULSE 71–91; RESP 16–18; TEMP 35.6–36.6; O2SAT 94–98
[2024-09-07 05:54] LABS: PROTEIN, TOTAL 6.4 g/dL (6.1-8.1)
[2024-09-07] MEDS: sodium chloride 0.9% 250 ML 75 ML IV (08:25)
[2024-09-07] MEDS: dexamethasone 4 mg/mL INJ 5 mL 12 MG IVP (08:32)
[2024-09-07] MEDS: acetaminophen 325 mg Tablet 650 MG PO (08:36)
[2024-09-07] MEDS: diphenhydrAMINE 50 mg/mL SDV 1mL 25 MG IVP (08:39)
[2024-09-07] MEDS: SODIUM CHLORIDE 0.9% IV (09:02)
[2024-09-07] MEDS: OBINUTUZUMAB IV (09:02)
[2024-09-08 08:34] LABS: ALBUMIN 4.2 g/dL (3.8-4.8); ALPHA 1 GLOBULIN 0.3 g/dL (0.2-0.3); ALPHA 2 GLOBULIN 0.8 g/dL (0.5-0.9); BETA 1 GLOBULIN 0.4 g/dL (0.4-0.6); BETA 2 GLOBULIN 0.3 g/dL (0.2-0.5); GAMMA GLOBULIN 0.4 g/dL (0.8-1.7)
[2024-09-09 16:38] LABS: Immunofixation Serum Normal pattern.
[2024-09-10 20:10] LABS: Beta 2 Glycoprotein IGA <2.0 U/mL (<20.0); Beta 2 Glycoprotein IGG <2.0 U/mL (<20.0); Beta 2 Glycoprotein IGM <2.0 U/mL (<20.0)
== END 2024-09-07 16:44 | disposition home or self-care (01) ==
PROVIDERS: Internal Medicine; Nurse Practitioner Family; PCP Family Medicine; Visit Provider Internal Medicine Medical Oncology
DX: Z53.9 Procedure and treatment not carried out, unspecified reason; Z51.11 Encounter for antineoplastic chemotherapy; C83.13 Mantle cell lymphoma, intra-abdominal lymph nodes; Z79.52 Long term (current) use of systemic steroids; Z79.899 Other long term (current) drug therapy
CPT/HCPCS: 36415; 80053; 82232; 82784; 83010; 83615; 84100; 84155; 84165; 84550; 85025; 85651; 86146; 86334; 86705; 86706; 87340; 96375; 96413; 96415; 99213; 99215; J1100; J1200; J7050; J9301; J9999

== ENCOUNTER 2024-09-13 07:35 | Oncology outpatient (recurring) (ONCR) | payer MEDICARE, OTHER, SELFPAY ==
[2024-09-13] VITALS (7 sets, daily range): BP systolic 94–124; BP diastolic 61–78; PULSE 41–57; RESP 17–18; TEMP 36.3–36.7; O2SAT 95–97
[2024-09-13 08:03] LABS: Basophils % 0.7 %; Eosinophils # 0.2 10^3/uL (0.0-0.8); Eosinophils % 5.7 %; Hematocrit 36.6 % (37-53); Lymphocytes # 1.1 10^3/uL (0.8-4.8); Lymphocytes % 25.8 %; Mean Corpuscular HGB Conc 33.9 g/dL (30-55); Mean Corpuscular Hemoglobin 31.5 pg (27-33); Mean Corpuscular Volume 92.9 fl (82-101); Mean Platelet Volume 9.2 fL (7.4-10.4); Monocytes # 0.8 10^3/uL (0.2-0.9); Monocytes % 19.7 %; Neutrophils % 47.4 %; Nucleated Red Blood Cells % 0 %; Platelet Count 124 10^3/cmm (157-399); Red Blood Count 3.94 10^6/uL (3.85-5.65); Red Cell Distribution Width 15.1 % (12.1-15.1); White Blood Count 4.22 10^3/uL (3.29-11.43)
[2024-09-13 08:19] LABS: Alanine Aminotransferase 39 U/L (0-41); Albumin Level 4.2 g/dL (3.5-5.2); Alkaline Phosphatase 117 U/L (40-130); Anion Gap 17.1 (5-19); Aspartate Amino Transferase 28 U/L (0-40); Blood Urea Nitrogen 24 mg/dL (8-23); Calcium 9.1 mg/dL (8.5-10.5); Carbon Dioxide 19 mmol/L (22-29); Chloride 103 mmol/L (98-107); Creatinine Clr Calc Pharmacy 54.0622; Globulin 2.4 g/dL (1.3-4.6); Glucose 136 mg/dL (65-115); Osmolality Calculated 286 mOsm/kg (285-295); Potassium 4.1 mmol/L (3.5-5.1); Sodium 135 mmol/L (136-145); Total Bilirubin 0.7 mg/dL (0.15-1.2); Total Protein 6.6 g/dL (6.6-8.7)
[2024-09-13] MEDS: sodium chloride 0.9% 250 ML 75 ML IV (09:11)
[2024-09-13] MEDS: dexamethasone 4 mg/mL INJ 5 mL 12 MG IVP (09:14)
[2024-09-13] MEDS: acetaminophen 325 mg Tablet 650 MG PO (09:14)
[2024-09-13] MEDS: diphenhydrAMINE 50 mg/mL SDV 1mL 25 MG IVP (09:16)
[2024-09-13] MEDS: obinutuzumab 1,000 MG in sodium chloride 0.9% 250 ML 30 MG IV (09:53)
== END 2024-09-13 23:59 | disposition home or self-care (01) ==
PROVIDERS: Nurse Practitioner Family; PCP Family Medicine; Visit Provider Internal Medicine
DX: Z51.11 Encounter for antineoplastic chemotherapy (principal); C83.13 Mantle cell lymphoma, intra-abdominal lymph nodes; I48.21 Permanent atrial fibrillation; I10 Essential (primary) hypertension; R03.0 Elevated blood-pressure reading, without diagnosis of hypertension; D70.1 Agranulocytosis secondary to cancer chemotherapy; T45.1X5A Adverse effect of antineoplastic and immunosuppressive drugs, initial encounter; E04.1 Nontoxic single thyroid nodule; M06.9 Rheumatoid arthritis, unspecified; Z79.52 Long term (current) use of systemic steroids; Z95.828 Presence of other vascular implants and grafts; Z87.891 Personal history of nicotine dependence; Z79.899 Other long term (current) drug therapy
CPT/HCPCS: 36415; 80053; 85025; 96375; 96413; 96415; 99214; J1100; J1200; J7050; J9301; J9999

== ENCOUNTER 2024-09-20 07:36 | Oncology outpatient (recurring) (ONCR) | payer MEDICARE, OTHER, SELFPAY ==
[2024-09-20 08:01] LABS: Basophils # 0.1 10^3/uL (0.0-0.1); Basophils % 1.6 %; Eosinophils # 0.2 10^3/uL (0.0-0.8); Eosinophils % 5.6 %; Hematocrit 38.4 % (37-53); Lymphocytes % 31.5 %; Mean Corpuscular HGB Conc 34.1 g/dL (30-55); Mean Corpuscular Hemoglobin 32.2 pg (27-33); Mean Corpuscular Volume 94.3 fl (82-101); Mean Platelet Volume 9.2 fL (7.4-10.4); Monocytes # 0.5 10^3/uL (0.2-0.9); Monocytes % 15.4 %; Neutrophils # 1.38 10^3/uL (1.8-7.7); Neutrophils % 45.2 %; Nucleated Red Blood Cells % 0 %; Platelet Count 125 10^3/cmm (157-399); Red Blood Count 4.07 10^6/uL (3.85-5.65); Red Cell Distribution Width 15.4 % (12.1-15.1); White Blood Count 3.05 10^3/uL (3.29-11.43)
[2024-09-20 08:23] LABS: Alanine Aminotransferase 90 U/L (0-41); Albumin Level 4.1 g/dL (3.5-5.2); Alkaline Phosphatase 127 U/L (40-130); Aspartate Amino Transferase 52 U/L (0-40); Blood Urea Nitrogen 24 mg/dL (8-23); Calcium 9.6 mg/dL (8.5-10.5); Carbon Dioxide 20 mmol/L (22-29); Chloride 101 mmol/L (98-107); Creatinine Clr Calc Pharmacy 54.0663; Globulin 2.6 g/dL (1.3-4.6); Glucose 181 mg/dL (65-115); Osmolality Calculated 289 mOsm/kg (285-295); Sodium 135 mmol/L (136-145); Total Bilirubin 0.7 mg/dL (0.15-1.2); Total Protein 6.7 g/dL (6.6-8.7)
[2024-09-20 08:25] LABS: Anion Gap 18.3 (5-19); Potassium 4.3 mmol/L (3.5-5.1)
[2024-09-20] MEDS: sodium chloride 0.9% 250 ML 75 ML IV (09:15)
[2024-09-20] MEDS: dexamethasone 4 mg/mL INJ 5 mL 12 MG IVP (09:16)
[2024-09-20] MEDS: acetaminophen 325 mg Tablet 650 MG PO (09:16)
[2024-09-20] MEDS: diphenhydrAMINE 50 mg/mL SDV 1mL 25 MG IVP (09:19)
[2024-09-20] MEDS: obinutuzumab 1,000 MG in sodium chloride 0.9% 250 ML 29 MG IV (09:42)
[2024-09-20 10:15] VITALS: BP 112/66; PULSE 45; RESP 16; TEMP 36.4; O2SAT 98
[2024-09-20 10:30] VITALS: BP 128/72; PULSE 47; RESP 16; TEMP 35.9; O2SAT 98
[2024-09-20 10:45] VITALS: BP 105/69; PULSE 45; RESP 16; TEMP 36.1; O2SAT 98
[2024-09-20 11:15] VITALS: BP 103/67; PULSE 63; RESP 16; TEMP 36; O2SAT 96
[2024-09-20 13:15] VITALS: BP 126/79; PULSE 89; RESP 16; TEMP 36.7; O2SAT 97
== END 2024-09-20 23:59 | disposition home or self-care (01) ==
PROVIDERS: Nurse Practitioner Family; PCP Family Medicine; Visit Provider Internal Medicine
DX: Z51.11 Encounter for antineoplastic chemotherapy (principal); C83.13 Mantle cell lymphoma, intra-abdominal lymph nodes; I48.21 Permanent atrial fibrillation; I10 Essential (primary) hypertension; D70.1 Agranulocytosis secondary to cancer chemotherapy; T45.1X5A Adverse effect of antineoplastic and immunosuppressive drugs, initial encounter; E04.1 Nontoxic single thyroid nodule; Z87.891 Personal history of nicotine dependence; R74.01 Elevation of levels of liver transaminase levels; M06.9 Rheumatoid arthritis, unspecified; I48.20 Chronic atrial fibrillation, unspecified; Z79.01 Long term (current) use of anticoagulants; Z79.899 Other long term (current) drug therapy
CPT/HCPCS: 80053; 85025; 96375; 96413; 96415; 99213; J1100; J1200; J7050; J9301; J9999

== ENCOUNTER 2024-10-01 09:03 | Emergency (ER) | payer MEDICARE, OTHER, SELFPAY ==
--- NOTE | 2024-10-01 09:06 | XRR_ITS ---
PROCEDURE INFORMATION: Exam: XR Chest Exam date and time: 10/01/2024 10:07 AM Age: 79 years old Clinical indication: Cough; Prior surgery; Surgery date: 6+ months; Surgery type: Port placement TECHNIQUE: Imaging protocol: Radiologic exam of the chest. Views: 1 view. COMPARISON: CT chest con [id number] 03/31/2024 12:57 PM FINDINGS: Tubes, catheters and devices: Right internal jugular Port-A-Cath is stable in position with the tip in the lower right atrium. Lungs: Lungs are clear bilaterally. Pleural spaces: No pleural effusion. No pneumothorax. Heart/Mediastinum: Stable moderate enlargement of the cardiac silhouette. Mediastinal contours are unremarkable. Vasculature: Stable atherosclerotic calcifications in the visualized arteries. Stable tortuosity of the aorta. Bones/joints: Old fracture of the mid/distal right clavicle. Degenerative changes in the spine and shoulders. Bones are diffusely osteopenic. Osseous findings are stable. XR/XR chest 1V portable [id number] IMPRESSION: 1. No acute cardiopulmonary process. 2. Incidental/nonacute findings are listed in the report.
[2024-10-01 09:26] VITALS: BP 112/66; PULSE 67; TEMP 36.7; O2SAT 93
--- NOTE | 2024-10-01 11:02 | W.ED.URI ---
HPI - URI/Sore Throat General: Chief Complaint: Upper Respiratory Infection Stated Complaint: persistent cough Time Seen by Provider: 10/01/24 10:04 Source: patient Mode of arrival: ambulatory Limitations: no limitations History of Present Illness: 79-year-old male with a history of lymphoma states he is currently going through treatment states had a cough and fever over the last 2 days and has had pneumonia in the past and was concerned he may have pneumonia denies any severe shortness of breath oxygen level here is normal. Denies any vomiting or diarrhea. Afebrile here Associated symptoms: Reports fever(s); Deny abdominal pain, chills, chest pain, diarrhea, headache(s), nausea or vomiting Related Data Home Medications ?Medication ?Instructions ?Recorded ?Confirmed glucosamine HCl 1,500 mg tablet 1,500 mg PO DAILY 06/06/19 09/28/24 cholecalciferol (vitamin D3) 25 25 mcg PO DAILY 03/27/21 09/28/24 mcg (1,000 unit) capsule loperamide 2 mg capsule 2 mg PO DAILY PRN Diarrhea 12/31/23 09/28/24 Previous Rx's ?Medication ?Instructions ?Recorded C-pap mask, cushions, head set #1 ea 12/30/21 diltiazem HCl 240 mg 240 mg PO DAILY #30 caps 05/03/24 capsule,extended release 24 hr (Cardizem CD) apixaban 5 mg tablet (Eliquis) 5 mg PO BID #180 tabs 05/08/24 lorazepam 1 mg tablet 0.5 - 1 mg (0.5 - 1 x 1 mg) PO Q6H 06/26/24 PRN severe nausea #30 tabs prochlorperazine maleate 10 mg 10 mg PO Q4H PRN mild nausea #30 06/26/24 tablet (Compazine) tabs simvastatin 20 mg tablet 20 mg PO DAILY #90 tabs 07/05/24 hydrocortisone 2.5 % topical cream 1 applic [place] DAILY PRN hemorrhoids 07/10/24 with perineal applicator #30 grams (Procto-Med HC) allopurinol 300 mg tablet 300 mg PO DAILY #30 tabs 08/30/24 diphenoxylate-atropine 2.5 2 tab PO QID PRN diarrhea #60 tabs 08/31/24 mg-0.025 mg tablet (Lomotil) fluconazole 100 mg tablet 100 mg PO DAILY fungal infection 08/31/24 prevention #90 tabs ondansetron HCl 4 mg tablet 4 mg PO Q6H PRN nausea and 08/31/24 vomiting #30 tabs sulfamethoxazole 800 1 tab PO MOWEFR #24 tabs 08/31/24 mg-trimethoprim 160 mg tablet (Bactrim DS) valacyclovir 500 mg tablet 500 mg PO BID #60 tabs 08/31/24 venetoclax 10 mg (14)-50 mg See Rx Instructions PO .COMPLEX 08/31/24 (7)-100 mg (21) tablets in a dose #42 ea pack zanubrutinib 80 mg capsule 80 mg PO BID #60 caps 09/06/24 metoprolol tartrate 50 mg tablet 75 mg (1.5 x 50 mg) PO BID #120 09/12/24 tabs doxycycline hyclate 100 mg tablet 100 mg PO BID 7 days #14 tabs 10/01/24 Allergies Allergy/AdvReac Type Severity Reaction Status Date / Time No Known Allergies Allergy Verified 10/01/24 09:30 Review of Systems Const: Reports: fever(s); Denies: chills, body aches or change in appetite Eyes: Denies: blurry vision or eye discomfort ENMT: Denies: throat pain or dental pain Card: Denies: chest pain Resp: Reports: non-productive cough; Denies: dyspnea GI: Denies: abdominal pain, nausea, vomiting or diarrhea Musc: Denies: neck pain or back pain Skin/Breast: Denies: rash Neuro: Denies: headache(s) PFSH ED PFSH: Medical History Port-A-Cath in place Dr Joshua Mantle cell lymphoma Tricuspid regurgitation Obstructive sleep apnea Anticoagulation adequate Immunization counseling Seropositive rheumatoid arthritis of multiple sites Atrial fibrillation Hypertension High risk medication use Encounter for screening for other viral diseases Rheumatoid arthritis with rheumatoid factor Surgical History H/O bilateral cataract extraction S/P hernia repair Family History Mother Uterine cancer Father Leukemia Son Chronic kidney disease (CKD) Lupus (systemic lupus erythematosus) Brother Lung cancer Brother Leukemia Sister Leukemia Daughter Antiphospholipid syndrome Other Diabetes Hypertension Denies family history of Rheumatoid arthritis Lupus CAD (coronary artery disease) Clotting disorder Dementia Suicide Anesthesia complication Bleeding disorder Stroke Social History Smoking and tobacco/nicotine status: former use of tobacco/nicotine Alcohol intake: never Substance/Drug Use: never Physical Exam Const: COMMON NORMALS: no acute distress, patient oriented x3 and healthy appearing HENMT: COMMON NORMALS: normocephalic and atraumatic HEAD & SCALP: normocephalic and atraumatic Eye: COMMON NORMALS: Equal, round and reactive pupils present and EOMs intact bilaterally PUPIL: Yes Equal, round and reactive pupils present Neck/C-Spine: COMMON NORMALS: full ROM and supple Chest: COMMONS NORMALS: normal inspection of the chest Resp: COMMON NORMALS: normal respiratory effort, No retractions, No use of accessory muscles and clear to auscultation bilaterally AUSCULTATION: clear to auscultation bilaterally Cardio: COMMON NORMALS: regular rate, regular rhythm and No murmurs present (Cardio) RATE: regular rate RHYTHM: regular rhythm Extremity: COMMON NORMALS: normal to inspection and full ROM Neuro: COMMON NORMALS: patient oriented x3, moves all extremities and no focal motor deficits Psych: COMMON NORMALS: mental status grossly normal, Normal thought process present and cooperative THOUGHT PROCESS: Normal thought process present Skin: COMMON NORMALS: no rashes or lesions noted and no wounds GENERAL SKIN EXAM: no rashes or lesions noted Course Vital Signs: Vital signs: Vital Signs Temperature 98.1 F 10/01/24 09:26 Pulse Rate 67 10/01/24 09:26 Blood Pressure 112/66 10/01/24 09:26 Pulse Oximetry 93 10/01/24 09:26 Oxygen Delivery Me thod Room Air 10/01/24 09:26 MDM - URI/Sore Throat Medical Decision Making Patient presents here with cough congestion likely upper respiratory infection well-appearing here we will start him on antibiotics he is to follow-up with PCP return if worsening All radiology interpretation(s) finalized by discharge Discharge Plan Discharge Patient Disposition: Home Clinical Impression: Upper respiratory infection Condition: Stable Prescriptions: New doxycycline hyclate 100 mg tablet 100 mg PO BID 7 Days Qty: 14 0RF No Action cholecalciferol (vitamin D3) 25 mcg (1,000 unit) capsule 25 mcg PO DAILY glucosamine HCl 1,500 mg tablet 1,500 mg PO DAILY (DME) C-pap mask, cushions, head set See Rx Instructions .Route .MEDSUPPLY Qty: 1 0RF Rx Instructions: As directed loperamide 2 mg capsule 2 mg PO DAILY PRN (Reason: Diarrhea) allopurinol 300 mg tablet 300 mg PO DAILY Qty: 30 1RF diltiazem HCl [Cardizem CD] 240 mg capsule,extended release 24hr 240 mg PO DAILY Qty: 30 11RF zanubrutinib 80 mg capsule 80 mg PO BID Qty: 60 0RF Eliquis 5 mg tablet 5 mg PO BID Qty: 180 1RF prochlorperazine maleate [Compazine] 10 mg tablet 10 mg PO Q4H PRN (Reason: mild nausea) Qty: 30 3RF lorazepam 1 mg tablet 0.5 - 1 mg PO Q6H PRN (Reason: severe nausea) Qty: 30 3RF simvastatin 20 mg tablet 20 mg PO DAILY Qty: 90 3RF hydrocortisone [Procto-Med HC] 2.5 % cream with perineal applicator 1 applic [place] DAILY PRN (Reason: hemorrhoids) Qty: 30 1RF fluconazole 100 mg tablet 100 mg PO DAILY Qty: 90 2RF ondansetron HCl 4 mg tablet 4 mg PO Q6H PRN (Reason: nausea and vomiting) Qty: 30 3RF diphenoxylate-atropine [Lomotil] 2.5-0.025 mg tablet 2 tab PO QID MDD 8 tab PRN (Reason: diarrhea) Qty: 60 3RF Rx Instructions: 2 tabs orally 4xdaily until control of diarrhea valacyclovir 500 mg tablet 500 mg PO BID Qty: 60 5RF Rx Instructions: Continue 3 months post treatment for prevention of viral infection sulfamethoxazole-trimethoprim [Bactrim DS] 800-160 mg tablet 1 tab PO MOWEFR Qty: 24 5RF Rx Instructions: For infection prevention venetoclax 10 mg-50 mg- 100 mg tablets,dose pack See Rx Instructions PO .COMPLEX Qty: 42 0RF Rx Instructions: take 20 mg daily for 7 days (week 1); 50 mg daily for 7 days (week 2); 100 mg daily for 7 days (week 3); 200 mg daily for 7 days (week 4) PO metoprolol tartrate 50 mg tablet 75 mg PO BID Qty: 120 11RF Rx Instructions: may take an extra one for high BP or HR Discharge Orders: Discharge ED (Routine); Ordered 10/01/24 Ordered By: Belkys Esquivel Referrals: Agustin Beltran MD [Primary Care Provider, [facility]] - 4-7 days Discharge Diet: Advance as tolerated Discharge Activity: Resume usual activity Patient Instructions: Upper Respiratory Infection (ED) Print Language: Sierra Leonean Coding Level of Care Code ED Drawbridge Operator for Lucio Schroeder
[2024-10-01] MEDS: doxycycline 100 mg Tablet PO (11:29)
[2024-10-01 11:30] VITALS: BP 97/79; PULSE 89; O2SAT 98
== END 2024-10-01 11:31 | disposition home or self-care (01) ==
PROVIDERS: Emergency Provider Emergency Medicine; PCP Family Medicine
DX: J06.9 Acute upper respiratory infection, unspecified (principal); Z79.01 Long term (current) use of anticoagulants; Z87.891 Personal history of nicotine dependence; I10 Essential (primary) hypertension
CPT/HCPCS: 71045; 99283; J9999

== ENCOUNTER 2024-10-11 07:45 | Oncology outpatient (recurring) (ONCR) | payer MEDICARE, OTHER, SELFPAY ==
[2024-09-28 10:09] LABS: Basophils # 0.1 10^3/uL (0.0-0.1); Eosinophils # 0.2 10^3/uL (0.0-0.8); Eosinophils % 6.1 %; Hematocrit 40.2 % (37-53); Lymphocytes # 1.1 10^3/uL (0.8-4.8); Lymphocytes % 30.9 %; Mean Corpuscular HGB Conc 33.8 g/dL (30-55); Mean Corpuscular Volume 94.6 fl (82-101); Mean Platelet Volume 9.5 fL (7.4-10.4); Monocytes # 0.7 10^3/uL (0.2-0.9); Monocytes % 20.7 %; Neutrophils # 1.35 10^3/uL (1.8-7.7); Neutrophils % 39.4 %; Nucleated Red Blood Cells % 0 %; Platelet Count 121 10^3/cmm (157-399); Red Blood Count 4.25 10^6/uL (3.85-5.65); Red Cell Distribution Width 15.7 % (12.1-15.1); White Blood Count 3.43 10^3/uL (3.29-11.43)
[2024-09-28 10:27] LABS: Alanine Aminotransferase 57 U/L (0-41); Albumin Level 4.2 g/dL (3.5-5.2); Alkaline Phosphatase 118 U/L (40-130); Anion Gap 16.7 (5-19); Aspartate Amino Transferase 36 U/L (0-40); Blood Urea Nitrogen 24 mg/dL (8-23); Calcium 9.8 mg/dL (8.5-10.5); Carbon Dioxide 24 mmol/L (22-29); Chloride 98 mmol/L (98-107); Globulin 2.5 g/dL (1.3-4.6); Glucose 127 mg/dL (65-115); Magnesium 1.9 mg/dL (1.7-2.3); Osmolality Calculated 284 mOsm/kg (285-295); Phosphorus 3.9 mg/dL (2.5-4.5); Potassium 4.7 mmol/L (3.5-5.1); Sodium 134 mmol/L (136-145); Total Bilirubin 0.8 mg/dL (0.15-1.2); Total Protein 6.7 g/dL (6.6-8.7); Uric Acid 3.6 mg/dL (3.4-7.0)
[2024-09-28 10:29] LABS: Lactate Dehydrogenase 289 U/L (135-225)
[2024-10-04 08:19] LABS: Basophils % 0.8 %; Eosinophils # 0.3 10^3/uL (0.0-0.8); Eosinophils % 8.8 %; Hematocrit 37.5 % (37-53); Lymphocytes # 1.4 10^3/uL (0.8-4.8); Lymphocytes % 37.5 %; Mean Corpuscular HGB Conc 34.4 g/dL (30-55); Mean Corpuscular Hemoglobin 31.9 pg (27-33); Mean Corpuscular Volume 92.6 fl (82-101); Mean Platelet Volume 9.7 fL (7.4-10.4); Monocytes # 0.7 10^3/uL (0.2-0.9); Monocytes % 19.7 %; Neutrophils # 1.22 10^3/uL (1.8-7.7); Neutrophils % 32.4 %; Nucleated Red Blood Cells % 0 %; Platelet Count 144 10^3/cmm (157-399); Red Blood Count 4.05 10^6/uL (3.85-5.65); Red Cell Distribution Width 15.3 % (12.1-15.1); White Blood Count 3.76 10^3/uL (3.29-11.43)
[2024-10-04 08:37] LABS: Alanine Aminotransferase 38 U/L (0-41); Albumin Level 4.1 g/dL (3.5-5.2); Alkaline Phosphatase 102 U/L (40-130); Anion Gap 17.2 (5-19); Aspartate Amino Transferase 34 U/L (0-40); Blood Urea Nitrogen 23 mg/dL (8-23); Calcium 9.1 mg/dL (8.5-10.5); Carbon Dioxide 20 mmol/L (22-29); Chloride 103 mmol/L (98-107); Globulin 2.4 g/dL (1.3-4.6); Glucose 137 mg/dL (65-115); Osmolality Calculated 288 mOsm/kg (285-295); Potassium 4.2 mmol/L (3.5-5.1); Sodium 136 mmol/L (136-145); Total Bilirubin 0.7 mg/dL (0.15-1.2); Total Protein 6.5 g/dL (6.6-8.7)
--- NOTE | 2024-10-04 14:02 | N.ONRAD NP_ITS ---
Radiation Oncology New Patient Visit Patient: Dwayne Riley MR#: [id number] : 1945> Age: 79> Sex: Male> Dictated by: Dr. Drew Vidal Date of Service: 10/04/2024 Referring Physician(s) : Dr. Isaac Diagnosis: Extensive treatment refractory [facility] mantle cell NHL. Local soft tissue progression in right chest wall close to port placement impeding venous access for treatment. Radiotherapy to date: Summary > No prior radiation therapy. Chief Complaint / History of Present Illness: Dx of [facility] mantle cell NHL 11/2023. He had initial response to first treatment and then relapsed. Now on salvage treatment with zanubrutinib, obinutuzamab and venetoclax. He notes rapid progression in soft tissue subcutaneous right anterior chest wall mass over last two months. Mass is just above port and impedes port access. He is completing ATB for URI. He has no other ss and feels well and remains active at home living independently with his . He also notes a right parotid gland and left medial elbow mass that are stable in size. Current Medications: - Last Reconciled 10/04/24 by Magdalena Yu MA allopurinol 300 mg PO DAILY apixaban (Eliquis) 5 mg PO BID [C-pap mask, cushions, head set As directed] cholecalciferol (vitamin D3) 25 mcg PO DAILY diltiazem HCl CD (Cardizem CD) 240 mg PO DAILY diphenoxylate-atropine 2.5-0.025 mg (Lomotil) 2 tabs PO QID PRN MDD 8 tab doxycycline hyclate 100 mg PO BID 7 days fluconazole 100 mg PO DAILY glucosamine HCl 1,500 mg PO DAILY hydrocortisone 2.5% (Procto-Med HC) 1 applic MT DAILY PRN loperamide 2 mg PO DAILY PRN lorazepam 0.5 - 1 mg (0.5 - 1 x 1 mg) PO Q6H PRN metoprolol tartrate 75 mg (1.5 x 50 mg) PO BID ondansetron HCl 4 mg PO Q6H PRN prochlorperazine maleate (Compazine) 10 mg PO Q4H PRN simvastatin 20 mg PO DAILY sulfamethoxazole-trimethoprim 800-160 mg (Bactrim DS) 1 tab PO MOWEFR valacyclovir 500 mg PO BID venetoclax take 20 mg daily for 7 days (week 1); 50 mg daily for 7 days (week 2); 100 mg daily for 7 days (week 3); 200 mg daily for 7 days (week 4) PO zanubrutinib 80 mg PO BID Allergies: No Known Allergies Medical History: Port-A-Cath in place Dr Joshua Mantle cell lymphoma Tricuspid regurgitation Obstructive sleep apnea Anticoagulation adequate Immunization counseling Seropositive rheumatoid arthritis of multiple sites Atrial fibrillation Hypertension High risk medication use Encounter for screening for other viral diseases Rheumatoid arthritis with rheumat Surgical History: Reviewed 10/04/24 @ 08:13 by Magdalena Yu MA) H/O bilateral cataract extraction S/P hernia repair Family History: Mother Uterine cancer Father Leukemia Son Chronic kidney disease (CKD) Lupus (systemic lupus erythematosus) Brother Lung cancer Brother Leukemia Sister Leukemia Daughter Antiphospholipid syndrome Other Diabetes Hypertension Denies family history of Rheumatoid arthritis Lupus CAD (coronary artery disease) Clotting disorder Dementia Suicide Anesthesia complication Bleeding disorder Stroke Social History: Smoking and tobacco/nicotine status: former use of tobacco/nicotine Alcohol intake: never Substance/Drug Use: never Dietary Habits Caffeine: Yes Caffeine intake frequency: carbonated beverages and coffee Current Complaints / Review of Systems: . Vital Signs: Performed on 10/04/2024 10:35 AM BMI - 30.506 kg/m2 (high), Height - 66 in, Weight - 189 lbs, Temperature - 98.7 f, Pulse - 75 /min, Respiration - 17 /min, O2 Sat - 98 %, Pain - 0, Fatigue - 0 and BP - 126/ 81 mm(hg). Physical Exam: Robust appearing. Right parotid mass and left medial elbow masses noted nontender. Overlying skin normal. Right anterior chest wall mass with overlying erythema and skin atrophy. Port immediately inferior to this. Performance Status: ECOG 0 - 1 Impression: Progressive mantle cell NHL with subcutaneous progression occurring rapidly and confined to the right chest wall.. The has impaired venous access. Plan on 10 Gy in 2 fractions using enface electrons, Signed by: 10/04/2024 2:01:24 PM <<Signature on File>> Time spent with patient: CPT Code: CPT Code:
--- NOTE | 2024-10-06 11:45 | N.ONRD TS_ITS ---
Radiation Oncology Treatment Summary Patient: Dwayne Riley MR#: [id number] : 1945 Age: 79 Sex: Male Dictated by: Dr. Drew Vidal Date of Service: 10/06/2024 Referring Physician(s) : Diagnosis: C85.99 - Non-Hodgkin lymphoma, unspecified, extranodal and solid organ sites, Diagnosed 10/04/2024 (Active) Radiotherapy to Date: Course: RT Chest 2024, Treatment Site: RT Chest 2024, Ref. ID: R ChestWall Lump, Energy: 6X, Dose/Fx (cGy): 500, #Fx: 2 / 2, Dose Correction (cGy): 0, Total Dose Delivered (cGy): 1,000, Start Date: 10/05/2024, End Date: 10/06/2024, Elapsed Days: 1 Clinical Summary: The patient tolerated RT well. Plan: End of treatment today. Return to medical oncology for systemic treatment 10/11/2024 Signed by: Dr. Drew Vidal>10/06/2024 11:44:10 AM <<Signature on File>>
[2024-10-11 08:21] LABS: Alanine Aminotransferase 19 U/L (0-41); Albumin Level 4.2 g/dL (3.5-5.2); Alkaline Phosphatase 99 U/L (40-130); Anion Gap 17.1 (5-19); Aspartate Amino Transferase 23 U/L (0-40); Blood Urea Nitrogen 21 mg/dL (8-23); Calcium 9.7 mg/dL (8.5-10.5); Carbon Dioxide 21 mmol/L (22-29); Chloride 101 mmol/L (98-107); Creatinine Clr Calc Pharmacy 53.9269; Globulin 2.4 g/dL (1.3-4.6); Glucose 154 mg/dL (65-115); Osmolality Calculated 286 mOsm/kg (285-295); Potassium 4.1 mmol/L (3.5-5.1); Sodium 135 mmol/L (136-145); Total Bilirubin 0.6 mg/dL (0.15-1.2); Total Protein 6.6 g/dL (6.6-8.7)
[2024-10-11 08:24] LABS: Basophils # 0.1 10^3/uL (0.0-0.1); Basophils % 1.2 %; Eosinophils # 0.2 10^3/uL (0.0-0.8); Eosinophils % 4.4 %; Hematocrit 37.5 % (37-53); Lymphocytes # 1.1 10^3/uL (0.8-4.8); Lymphocytes % 24.9 %; Mean Corpuscular HGB Conc 34.1 g/dL (30-55); Mean Corpuscular Hemoglobin 32.8 pg (27-33); Mean Corpuscular Volume 96.2 fl (82-101); Mean Platelet Volume 9.7 fL (7.4-10.4); Monocytes # 0.9 10^3/uL (0.2-0.9); Monocytes % 20.7 %; Neutrophils # 2.01 10^3/uL (1.8-7.7); Neutrophils % 46.9 %; Nucleated Red Blood Cells % 0 %; Platelet Count 182 10^3/cmm (157-399); Red Cell Distribution Width 15.6 % (12.1-15.1); White Blood Count 4.29 10^3/uL (3.29-11.43)
[2024-10-11 08:59] VITALS: BP 128/81; PULSE 58; RESP 18; TEMP 36.6; O2SAT 95
[2024-10-11] MEDS: sodium chloride 0.9% 250 ML 75 ML IV (09:41)
[2024-10-11] MEDS: acetaminophen 325 mg Tablet 650 MG PO (09:43)
[2024-10-11] MEDS: diphenhydrAMINE 50 mg/mL SDV 1mL 25 MG IVP (09:44)
[2024-10-11] MEDS: dexamethasone 4 mg/mL INJ 5 mL 12 MG IVP (09:44)
[2024-10-11 10:25] VITALS: BP 126/67; PULSE 73; RESP 18; TEMP 36.1; O2SAT 93
[2024-10-11] MEDS: obinutuzumab 1,000 MG in sodium chloride 0.9% 250 ML 29 MG IV (10:25)
[2024-10-11 11:00] VITALS: BP 120/72; PULSE 97; RESP 18; TEMP 36.2; O2SAT 95
[2024-10-11 11:33] VITALS: BP 116/70; PULSE 87; RESP 17; TEMP 35.9; O2SAT 94
== END 2024-10-12 16:39 | disposition home or self-care (01) ==
PROVIDERS: Nurse Practitioner Family; PCP Family Medicine; Visit Provider Internal Medicine
DX: Z53.9 Procedure and treatment not carried out, unspecified reason; Z51.11 Encounter for antineoplastic chemotherapy; C83.13 Mantle cell lymphoma, intra-abdominal lymph nodes; R03.0 Elevated blood-pressure reading, without diagnosis of hypertension; Z79.52 Long term (current) use of systemic steroids; Z79.899 Other long term (current) drug therapy; Z87.891 Personal history of nicotine dependence; Z92.21 Personal history of antineoplastic chemotherapy; D70.1 Agranulocytosis secondary to cancer chemotherapy; T45.1X5A Adverse effect of antineoplastic and immunosuppressive drugs, initial encounter; E04.1 Nontoxic single thyroid nodule; I10 Essential (primary) hypertension; I48.21 Permanent atrial fibrillation
CPT/HCPCS: 36415; 77290; 77295; 77300; 77334; 77336; 77387; 77412; 80053; 83615; 83735; 84100; 84550; 85025; 96375; 96413; 96415; 96523; 99024; 99205; 99213; 99214; J1100; J1200; J7050; J9301; J9999

== ENCOUNTER 2024-10-18 08:28 | Oncology outpatient (recurring) (ONCR) | payer MEDICARE, OTHER, SELFPAY ==
[2024-10-18 09:01] LABS: Basophils # 0.1 10^3/uL (0.0-0.1); Basophils % 1.8 %; Eosinophils # 0.2 10^3/uL (0.0-0.8); Eosinophils % 4.8 %; Hematocrit 38.1 % (37-53); Lymphocytes # 0.8 10^3/uL (0.8-4.8); Lymphocytes % 19.5 %; Mean Corpuscular HGB Conc 33.9 g/dL (30-55); Mean Corpuscular Volume 94.5 fl (82-101); Mean Platelet Volume 9.6 fL (7.4-10.4); Monocytes # 0.8 10^3/uL (0.2-0.9); Monocytes % 19.8 %; Neutrophils # 2.11 10^3/uL (1.8-7.7); Neutrophils % 52.8 %; Nucleated Red Blood Cells % 0 %; Platelet Count 148 10^3/cmm (157-399); Red Blood Count 4.03 10^6/uL (3.85-5.65); Red Cell Distribution Width 15.8 % (12.1-15.1); White Blood Count 3.99 10^3/uL (3.29-11.43)
[2024-10-18 09:22] LABS: Alanine Aminotransferase 37 U/L (0-41); Albumin Level 4.1 g/dL (3.5-5.2); Alkaline Phosphatase 108 U/L (40-130); Anion Gap 16.2 (5-19); Aspartate Amino Transferase 30 U/L (0-40); Blood Urea Nitrogen 22 mg/dL (8-23); Calcium 9.2 mg/dL (8.5-10.5); Carbon Dioxide 23 mmol/L (22-29); Chloride 100 mmol/L (98-107); Globulin 2.6 g/dL (1.3-4.6); Glucose 125 mg/dL (65-115); Osmolality Calculated 285 mOsm/kg (285-295); Potassium 4.2 mmol/L (3.5-5.1); Sodium 135 mmol/L (136-145); Total Bilirubin 0.6 mg/dL (0.15-1.2); Total Protein 6.7 g/dL (6.6-8.7); Uric Acid 3.6 mg/dL (3.4-7.0)
== END 2024-10-23 23:59 | disposition home or self-care (01) ==
LOC: RAD 08:28 → ONCMED 08:33
PROVIDERS: Nurse Practitioner Family; PCP Family Medicine; Visit Provider Internal Medicine
DX: Z51.11 Encounter for antineoplastic chemotherapy (principal); C83.13 Mantle cell lymphoma, intra-abdominal lymph nodes; I48.21 Permanent atrial fibrillation; I10 Essential (primary) hypertension; D70.1 Agranulocytosis secondary to cancer chemotherapy; T45.1X5A Adverse effect of antineoplastic and immunosuppressive drugs, initial encounter; E04.1 Nontoxic single thyroid nodule; R03.0 Elevated blood-pressure reading, without diagnosis of hypertension; Z79.899 Other long term (current) drug therapy; M06.9 Rheumatoid arthritis, unspecified; R06.02 Shortness of breath; Z95.828 Presence of other vascular implants and grafts; G47.33 Obstructive sleep apnea (adult) (pediatric); Z72.0 Tobacco use; Z79.69 Long term (current) use of other immunomodulators and immunosuppressants
CPT/HCPCS: 80053; 84550; 85025; 99213

== ENCOUNTER 2024-11-08 08:00 | Oncology outpatient (recurring) (ONCR) | payer MEDICARE, OTHER, SELFPAY ==
--- NOTE | 2024-11-03 08:30 | PETR_ITS ---
PROCEDURE INFORMATION: Exam: PET/CT Whole Body Exam date and time: 11/03/2024 9:26 AM Age: 79 years old Clinical indication: Condition or disease; Condition/disease: Mantle cell lymphoma, abdominal nodes; Prior surgery; Surgery date: 6+ months; Surgery type: Y-port insertion LABS AND CLINICAL REPORTS: Glucose: 175 mg/dl Treatment strategy for malignancy (PET staging): Restaging (PS) TECHNIQUE: Imaging protocol: Following at least four-hour fasting and following the injection of radiopharmaceutical, low dose CT images were obtained. Then, PET images were obtained. Attenuation corrected images were constructed using the CT scan. Fused images of PET and CT were reviewed. The standardized uptake values (SUV) reported below are maximum values within a region of interest, expressed in gm/ml. Exam includes the whole body. SUV normalization method: BodyWeight Radiopharmaceutical: 12.87 mCi F-18 FDG (Fluorodeoxyglucose), IV. Time of imaging post radiopharmaceutical administration: 54 minutes Injection site: right ac COMPARISON: 1. PT PET skull to thigh INIT [id number] 04/21/2024 12:[address] chest wo con [id number] 03/31/2024 12:[address] abdomen pelvis wo con [id number] 12/11/2023 5:30 PM 4. Report only from thyroid ultrasound dated 05/03/2024. FINDINGS: Tubes, catheters and devices: Right chest port terminates near the inferior cavoatrial junction, stable. Brain: Visualized brain has normal physiologic uptake. Salivary glands: Developed FDG avid right parotid mass measuring 4.2 x 3.3 cm on axial image 513 shows SUV max 12.3. Pharynx: No abnormal uptake. Larynx: No abnormal uptake. Thyroid: Stable CT appearance of left thyroid nodule with increased peripheral uptake showing SUV max 4.5 (previously 3.2) and low-level right thyroid uptake showing SUV max 2.9. Lungs, pleura and trachea: No abnormal uptake. Lingular calcified granulomata. Heart: Cardiomegaly with right atrial dilatation and peripheral FDG uptake. Coronary arteries: Moderate coronary artery calcification. Mediastinal space: No abnormal uptake. Diaphragm: Small hiatal hernia. Liver: No abnormal uptake. Gallbladder and biliary ducts: No abnormal uptake. Pancreas: No abnormal uptake. Spleen: No abnormal uptake. No splenomegaly. Calcified granulomata. Adrenal glands: No abnormal uptake. Kidneys and ureters: Normal physiologic uptake. Photopenic fluid density right renal cyst. Stomach and bowel: No abnormal uptake. Colonic diverticulosis without findings of diverticulitis. Vasculature: No abnormal uptake. Heavy systemic arterial calcifications without aortic aneurysm. Lymph nodes: Enlarged FDG avid left axillary lymph node measures 2.8 cm in the short axis on axial image 455 and shows SUV max 16.6. Enlarged FDG avid left epitrochlear lymph node measures 3.8 cm in the short axis on axial image 398 and shows SUV max 11.6. Developed mildly prominent left inguinal lymph node with SUV max 3.9 on axial image 288. Essentially resolved right hilar uptake. No FDG avid abdominopelvic lymphadenopathy. Skeleton: FDG uptake at the posterolateral proximal right tibia at site of proximal tibiofibular joint without underlying CT abnormality. Degenerative changes along the spine and sacroiliac joints. Soft tissues: Multiple FDG-avid subcutaneous soft tissue density nodules with index 1.7 cm left upper back nodule on axial image 493 showing SUV max 11.1, 2.4 cm right upper anterior chest nodule on axial image 448 showing SUV max 9.1, medial right upper arm nodule measuring 1 cm on axial image 440 showing SUV max 7.3, lateral left lower abdominal wall nodule measuring 0.9 cm on axial image 391 showing SUV max 6.9, and 2.1 cm midline low back nodule on axial image 352 showing SUV max 13.0. Few scattered FDG avid nodules also appear to be muscular, index left upper arm focus showing SUV max 6.8 on axial image 421 and posterior left thigh nodule measuring proximally 1.4 cm on axial image 256 with SUV max 15.1. Prior right inguinal hernia repair. Small fat containing left inguinal hernia. METRICS: Mediastinal blood pool: SUV mean 2.2 Liver uptake: SUV mean 2.9 PET/PET WB melanoma SUBSEQ [id number] IMPRESSION: 1. Compared to March 2024, [place] 5 disease progression with developed large FDG avid right parotid mass; enlarged FDG avid left axillary, epitrochlear, and inguinal lymphadenopathy; and multiple scattered FDG avid soft tissue nodules with index lesions detailed above. 2. FDG uptake at the posterolateral proximal right tibia at site of proximal tibiofibular joint may be degenerative inflammatory change, consider MRI as clinically indicated. 3. Stable CT appearance of left thyroid nodule with increased peripheral uptake, nonspecific but possibly increased inflammatory change given benign appearance of nodules reported on comparison thyroid ultrasound. 4. Cardiomegaly with right atrial dilatation and peripheral FDG uptake suggestive of elevated pressures.
[2024-11-08 08:28] LABS: Hematocrit 34.4 % (37-53); Hemoglobin 11.80 g/dL (11.27-16.99); Mean Corpuscular HGB Conc 34.3 g/dL (30-55); Mean Corpuscular Hemoglobin 33.0 pg (27-33); Mean Corpuscular Volume 96.1 fl (82-101); Nucleated Red Blood Cells % 0 %; Platelet Count 166 10^3/cmm (157-399); Red Blood Count 3.58 10^6/uL (3.85-5.65); White Blood Count 3.45 10^3/uL (3.29-11.43)
[2024-11-08 08:55] LABS: Alanine Aminotransferase 18 U/L (0-41); Albumin Level 4.0 g/dL (3.5-5.2); Alkaline Phosphatase 95 U/L (40-130); Anion Gap 18.2 (5-19); Aspartate Amino Transferase 23 U/L (0-40); Blood Urea Nitrogen 16 mg/dL (8-23); Calcium 9.2 mg/dL (8.5-10.5); Carbon Dioxide 23 mmol/L (22-29); Chloride 101 mmol/L (98-107); Creatinine Clr Calc Pharmacy 46.2023; Globulin 2.5 g/dL (1.3-4.6); Glucose 135 mg/dL (65-115); Osmolality Calculated 289 mOsm/kg (285-295); Potassium 4.2 mmol/L (3.5-5.1); Sodium 138 mmol/L (136-145); Total Protein 6.5 g/dL (6.6-8.7)
--- NOTE | 2024-11-08 10:33 | PC.PHAR ---
ROLY ASKED THAT I CONFIRM WITH PATIENT BUKINSA IS 80MG BID. PATIENTS SHOWED ME PILL BOTTLE. INDEED DOSE IS 80MG BID (NOT 160MG BID). ALSO, HE ASKED THAT I TELL PATIENT TO START VENTCLEXTA TODAY.
[2024-11-08] MEDS: dexamethasone 4 mg/mL INJ 5 mL 12 MG IVP (10:42)
[2024-11-08] MEDS: diphenhydrAMINE 50 mg/mL SDV 1mL 25 MG IVP (10:55)
[2024-11-08] MEDS: obinutuzumab 1,000 MG in sodium chloride 0.9% 250 ML 29 MG IV (11:31)
[2024-11-08 11:40] VITALS: BP 129/77; PULSE 59; RESP 18; TEMP 36; O2SAT 95
[2024-11-08 12:10] VITALS: BP 123/70; PULSE 53; RESP 17; TEMP 35.7; O2SAT 95
[2024-11-08 12:41] VITALS: BP 115/72; PULSE 61; RESP 17; TEMP 35.9; O2SAT 96
[2024-11-08 13:15] VITALS: BP 116/78; PULSE 58; RESP 16; TEMP 36; O2SAT 96
[2024-11-08 15:15] VITALS: BP 128/84; PULSE 71; TEMP 36.2; O2SAT 97
== END 2024-11-08 23:59 | disposition home or self-care (01) ==
PROVIDERS: Nurse Practitioner Family; PCP Family Medicine; Visit Provider Internal Medicine
DX: Z53.9 Procedure and treatment not carried out, unspecified reason; Z51.11 Encounter for antineoplastic chemotherapy; C83.13 Mantle cell lymphoma, intra-abdominal lymph nodes; I48.21 Permanent atrial fibrillation; D70.1 Agranulocytosis secondary to cancer chemotherapy; T45.1X5A Adverse effect of antineoplastic and immunosuppressive drugs, initial encounter; E04.1 Nontoxic single thyroid nodule; Z79.52 Long term (current) use of systemic steroids; Z79.899 Other long term (current) drug therapy
CPT/HCPCS: 78816; 80053; 85025; 96375; 96413; 99213; A9552; J1100; J1200; J7050; J9301; J9999

== ENCOUNTER 2024-11-22 11:53 | Oncology outpatient (recurring) (ONCR) | payer MEDICARE, OTHER, SELFPAY ==
[2024-11-22 12:09] LABS: Hematocrit 36.0 % (37-53); Hemoglobin 12.30 g/dL (11.27-16.99); Mean Corpuscular HGB Conc 34.2 g/dL (30-55); Mean Corpuscular Hemoglobin 33.1 pg (27-33); Mean Corpuscular Volume 96.8 fl (82-101); Nucleated Red Blood Cells % 0 %; Platelet Count 141 10^3/cmm (157-399); Red Blood Count 3.72 10^6/uL (3.85-5.65); White Blood Count 3.35 10^3/uL (3.29-11.43)
[2024-11-22 12:27] LABS: Alanine Aminotransferase 19 U/L (0-41); Albumin Level 4.1 g/dL (3.5-5.2); Alkaline Phosphatase 104 U/L (40-130); Anion Gap 16.4 (5-19); Aspartate Amino Transferase 21 U/L (0-40); Blood Urea Nitrogen 16 mg/dL (8-23); Calcium 9.3 mg/dL (8.5-10.5); Carbon Dioxide 25 mmol/L (22-29); Chloride 103 mmol/L (98-107); Creatinine Clr Calc Pharmacy 54.6027; Globulin 2.6 g/dL (1.3-4.6); Glucose 110 mg/dL (65-115); Osmolality Calculated 292 mOsm/kg (285-295); Potassium 4.4 mmol/L (3.5-5.1); Sodium 140 mmol/L (136-145); Total Protein 6.7 g/dL (6.6-8.7)
== END 2024-11-23 23:59 | disposition home or self-care (01) ==
PROVIDERS: PCP Family Medicine; Visit Provider Internal Medicine
DX: C83.13 Mantle cell lymphoma, intra-abdominal lymph nodes (principal); I48.21 Permanent atrial fibrillation; D70.1 Agranulocytosis secondary to cancer chemotherapy; T45.1X5A Adverse effect of antineoplastic and immunosuppressive drugs, initial encounter; Z79.899 Other long term (current) drug therapy
CPT/HCPCS: 36591; 80053; 85025; 99215

== ENCOUNTER 2024-11-30 11:18 | Outpatient (CLI) | payer MEDICARE, OTHER, SELFPAY ==
[2024-11-30 12:45] LABS: Hematocrit 37.8 % (37-53); Hemoglobin 12.70 g/dL (11.27-16.99); Mean Corpuscular HGB Conc 33.6 g/dL (30-55); Mean Corpuscular Hemoglobin 32.7 pg (27-33); Mean Corpuscular Volume 97.4 fl (82-101); Nucleated Red Blood Cells % 0 %; Platelet Count 181 10^3/cmm (157-399); Red Blood Count 3.88 10^6/uL (3.85-5.65); White Blood Count 2.74 10^3/uL (3.29-11.43)
[2024-11-30 13:06] LABS: Alanine Aminotransferase 16 U/L (0-41); Albumin Level 4.3 g/dL (3.5-5.2); Alkaline Phosphatase 96 U/L (40-130); Anion Gap 13.7 (5-19); Aspartate Amino Transferase 21 U/L (0-40); Blood Urea Nitrogen 25 mg/dL (8-23); Calcium 9.4 mg/dL (8.5-10.5); Carbon Dioxide 24 mmol/L (22-29); Chloride 106 mmol/L (98-107); Globulin 2.3 g/dL (1.3-4.6); Glucose 105 mg/dL (65-115); Osmolality Calculated 293 mOsm/kg (285-295); Potassium 4.7 mmol/L (3.5-5.1); Sodium 139 mmol/L (136-145); Total Protein 6.6 g/dL (6.6-8.7)
== END 2024-11-30 11:19 | disposition home or self-care (01) ==
PROVIDERS: PCP Family Medicine; Visit Provider Internal Medicine
DX: C83.18 Mantle cell lymphoma, lymph nodes of multiple sites (principal)
CPT/HCPCS: 36415; 80053; 83615; 85025

== ENCOUNTER 2024-12-20 09:45 | Oncology outpatient (recurring) (ONCR) | payer MEDICARE, OTHER, SELFPAY ==
[2024-12-06 08:36] LABS: Hematocrit 36.4 % (37-53); Hemoglobin 12.30 g/dL (11.27-16.99); Mean Corpuscular HGB Conc 33.8 g/dL (30-55); Mean Corpuscular Hemoglobin 32.8 pg (27-33); Mean Corpuscular Volume 97.1 fl (82-101); Nucleated Red Blood Cells % 0 %; Platelet Count 171 10^3/cmm (157-399); Red Blood Count 3.75 10^6/uL (3.85-5.65); White Blood Count 2.33 10^3/uL (3.29-11.43)
[2024-12-06 08:44] LABS: Alanine Aminotransferase 19 U/L (0-41); Albumin Level 4.4 g/dL (3.5-5.2); Alkaline Phosphatase 105 U/L (40-130); Anion Gap 16.5 (5-19); Aspartate Amino Transferase 23 U/L (0-40); Blood Urea Nitrogen 26 mg/dL (8-23); Calcium 9.4 mg/dL (8.5-10.5); Carbon Dioxide 23 mmol/L (22-29); Chloride 101 mmol/L (98-107); Creatinine Clr Calc Pharmacy 50.4242; Globulin 2.2 g/dL (1.3-4.6); Glucose 141 mg/dL (65-115); Osmolality Calculated 289 mOsm/kg (285-295); Potassium 4.5 mmol/L (3.5-5.1); Sodium 136 mmol/L (136-145); Total Protein 6.6 g/dL (6.6-8.7)
[2024-12-20 10:19] LABS: Hematocrit 33.4 % (37-53); Hemoglobin 11.40 g/dL (11.27-16.99); Mean Corpuscular HGB Conc 34.1 g/dL (30-55); Mean Corpuscular Hemoglobin 32.8 pg (27-33); Mean Corpuscular Volume 96.0 fl (82-101); Nucleated Red Blood Cells % 0 %; Platelet Count 155 10^3/cmm (157-399); Red Blood Count 3.48 10^6/uL (3.85-5.65); White Blood Count 4.31 10^3/uL (3.29-11.43)
[2024-12-20 10:43] LABS: Alanine Aminotransferase 19 U/L (0-41); Albumin Level 4.1 g/dL (3.5-5.2); Alkaline Phosphatase 89 U/L (40-130); Anion Gap 14.1 (5-19); Aspartate Amino Transferase 22 U/L (0-40); Blood Urea Nitrogen 19 mg/dL (8-23); Calcium 9.3 mg/dL (8.5-10.5); Carbon Dioxide 25 mmol/L (22-29); Chloride 101 mmol/L (98-107); Creatinine Clr Calc Pharmacy 54.8733; Globulin 2.6 g/dL (1.3-4.6); Glucose 139 mg/dL (65-115); Magnesium 1.9 mg/dL (1.7-2.3); Osmolality Calculated 287 mOsm/kg (285-295); Potassium 4.1 mmol/L (3.5-5.1); Sodium 136 mmol/L (136-145); Total Protein 6.7 g/dL (6.6-8.7); Uric Acid 3.9 mg/dL (3.4-7.0)
== END 2024-12-24 23:59 | disposition home or self-care (01) ==
PROVIDERS: PCP Family Medicine; Visit Provider Internal Medicine
DX: Z53.9 Procedure and treatment not carried out, unspecified reason; C83.13 Mantle cell lymphoma, intra-abdominal lymph nodes; I48.21 Permanent atrial fibrillation; D70.1 Agranulocytosis secondary to cancer chemotherapy; T45.1X5A Adverse effect of antineoplastic and immunosuppressive drugs, initial encounter; Z79.899 Other long term (current) drug therapy
CPT/HCPCS: 36592; 80053; 83615; 83735; 84100; 84550; 85025; 99213

== ENCOUNTER 2025-01-10 10:30 | Oncology outpatient (recurring) (ONCR) | payer MEDICARE, OTHER, SELFPAY ==
[2025-01-03 07:41] LABS: Hematocrit 36.6 % (37-53); Hemoglobin 12.40 g/dL (11.27-16.99); Mean Corpuscular HGB Conc 33.9 g/dL (30-55); Mean Corpuscular Hemoglobin 32.8 pg (27-33); Mean Corpuscular Volume 96.8 fl (82-101); Nucleated Red Blood Cells % 0 %; Platelet Count 172 10^3/cmm (157-399); Red Blood Count 3.78 10^6/uL (3.85-5.65); White Blood Count 3.63 10^3/uL (3.29-11.43)
[2025-01-03 07:57] LABS: Alanine Aminotransferase 18 U/L (0-41); Albumin Level 4.4 g/dL (3.5-5.2); Alkaline Phosphatase 108 U/L (40-130); Anion Gap 16.1 (5-19); Aspartate Amino Transferase 20 U/L (0-40); Blood Urea Nitrogen 24 mg/dL (8-23); Calcium 9.8 mg/dL (8.5-10.5); Carbon Dioxide 23 mmol/L (22-29); Chloride 104 mmol/L (98-107); Globulin 2.3 g/dL (1.3-4.6); Glucose 158 mg/dL (65-115); Magnesium 1.9 mg/dL (1.7-2.3); Osmolality Calculated 295 mOsm/kg (285-295); Potassium 4.1 mmol/L (3.5-5.1); Sodium 139 mmol/L (136-145); Total Protein 6.7 g/dL (6.6-8.7); Uric Acid 4.0 mg/dL (3.4-7.0)
== END 2025-01-23 23:59 | disposition home or self-care (01) ==
PROVIDERS: PCP Family Medicine; Visit Provider Internal Medicine
DX: Z53.9 Procedure and treatment not carried out, unspecified reason (principal)
CPT/HCPCS: 80053; 83615; 83735; 84100; 84550; 85025; 99214

== ENCOUNTER → 2025-01-29 10:15 | Outpatient (BNVA) | payer MEDICARE, OTHER, SELFPAY | PROVIDERS: PCP Family Medicine; Visit Provider Internal Medicine Rheumatology | DX: M05.79 Rheumatoid arthritis with rheumatoid factor of multiple sites without organ or systems involvement (principal); Z79.899 Other long term (current) drug therapy; Z71.85 Encounter for immunization safety counseling; C83.13 Mantle cell lymphoma, intra-abdominal lymph nodes | CPT/HCPCS: 99214 ==

== ENCOUNTER 2025-02-21 07:30 | Oncology outpatient (recurring) (ONCR) | payer MEDICARE, OTHER, SELFPAY ==
--- NOTE | 2025-02-02 10:47 | PC.NURSE ---
Patient came in for dressing change on the central line placed on the left chest from [facility]. Sterile procedure done after taking the dressing off. Area cleansed with chlorhexidine, allowed to air dry, and covered with a new sterile dressing and antimicrobial patch applied. All 3 lines flushed with NS and heparin afterwards. New blue hubs and end caps were placed on each line. Patient tolerated procedure without any problems.
[2025-02-02 11:21] LABS: Hematocrit 38.1 % (37-53); Hemoglobin 12.90 g/dL (11.27-16.99); Mean Corpuscular HGB Conc 33.9 g/dL (30-55); Mean Corpuscular Hemoglobin 33.0 pg (27-33); Mean Corpuscular Volume 97.4 fl (82-101); Nucleated Red Blood Cells % 0 %; Platelet Count 166 10^3/cmm (157-399); Red Blood Count 3.91 10^6/uL (3.85-5.65); White Blood Count 10.33 10^3/uL (3.29-11.43)
[2025-02-02 11:43] LABS: Alanine Aminotransferase 23 U/L (0-41); Albumin Level 4.4 g/dL (3.5-5.2); Alkaline Phosphatase 117 U/L (40-130); Anion Gap 16.5 (5-19); Aspartate Amino Transferase 23 U/L (0-40); Blood Urea Nitrogen 21 mg/dL (8-23); Calcium 9.6 mg/dL (8.5-10.5); Carbon Dioxide 22 mmol/L (22-29); Chloride 103 mmol/L (98-107); Ferritin 517 ng/mL (30-400); Globulin 2.4 g/dL (1.3-4.6); Glucose 111 mg/dL (65-115); Osmolality Calculated 288 mOsm/kg (285-295); Potassium 4.5 mmol/L (3.5-5.1); Sodium 137 mmol/L (136-145); Total Protein 6.8 g/dL (6.6-8.7)
[2025-02-21 07:47] LABS: Hematocrit 33.9 % (37-53); Hemoglobin 11.80 g/dL (11.27-16.99); Mean Corpuscular HGB Conc 34.8 g/dL (30-55); Mean Corpuscular Hemoglobin 34.7 pg (27-33); Mean Corpuscular Volume 99.7 fl (82-101); Nucleated Red Blood Cells % 0 %; Platelet Count 129 10^3/cmm (157-399); Red Blood Count 3.40 10^6/uL (3.85-5.65); White Blood Count 5.63 10^3/uL (3.29-11.43)
[2025-02-21 08:03] LABS: Alanine Aminotransferase 26 U/L (0-41); Albumin Level 4.5 g/dL (3.5-5.2); Alkaline Phosphatase 105 U/L (40-130); Anion Gap 18.1 (5-19); Aspartate Amino Transferase 25 U/L (0-40); Blood Urea Nitrogen 13 mg/dL (8-23); Calcium 9.3 mg/dL (8.5-10.5); Carbon Dioxide 20 mmol/L (22-29); Chloride 104 mmol/L (98-107); Creatinine Clr Calc Pharmacy 60.1095; Globulin 1.8 g/dL (1.3-4.6); Glucose 153 mg/dL (65-115); Osmolality Calculated 289 mOsm/kg (285-295); Potassium 4.1 mmol/L (3.5-5.1); Sodium 138 mmol/L (136-145); Total Protein 6.3 g/dL (6.6-8.7)
== END 2025-02-23 23:59 | disposition home or self-care (01) ==
PROVIDERS: Internal Medicine; PCP Family Medicine; Visit Provider Internal Medicine
DX: Z08 Encounter for follow-up examination after completed treatment for malignant neoplasm; Z85.72 Personal history of non-Hodgkin lymphomas; I48.21 Permanent atrial fibrillation; D64.9 Anemia, unspecified; D69.6 Thrombocytopenia, unspecified; Z92.3 Personal history of irradiation; Z79.01 Long term (current) use of anticoagulants; Z95.828 Presence of other vascular implants and grafts; Z92.21 Personal history of antineoplastic chemotherapy; Z53.9 Procedure and treatment not carried out, unspecified reason
CPT/HCPCS: 36591; 36592; 80053; 82728; 83615; 85025; 86140; 96523; 99213

== ENCOUNTER → 2025-03-04 15:45 | Outpatient (BNVA) | payer MEDICARE, OTHER, SELFPAY | PROVIDERS: PCP Family Medicine; Visit Provider Registered Nurse Neonatal Intensive Care | DX: R05.9 Cough, unspecified (principal) | CPT/HCPCS: 87400; 87426 ==

== ENCOUNTER → 2025-03-12 11:37 | Outpatient (BNVA) | payer MEDICARE, OTHER, SELFPAY | PROVIDERS: PCP Family Medicine; Visit Provider Dermatology | DX: B00.1 Herpesviral vesicular dermatitis (principal); L82.1 Other seborrheic keratosis; D23.39 Other benign neoplasm of skin of other parts of face; C83.18 Mantle cell lymphoma, lymph nodes of multiple sites; Z08 Encounter for follow-up examination after completed treatment for malignant neoplasm; Z85.828 Personal history of other malignant neoplasm of skin; Z92.3 Personal history of irradiation; L57.0 Actinic keratosis | CPT/HCPCS: 17000; 99214 ==

== ENCOUNTER → 2025-03-15 10:00 | Outpatient (BNVA) | payer MEDICARE, OTHER, SELFPAY | PROVIDERS: PCP Family Medicine; Visit Provider Nurse Practitioner Family | DX: I48.91 Unspecified atrial fibrillation (principal); Z79.01 Long term (current) use of anticoagulants; I10 Essential (primary) hypertension; E78.5 Hyperlipidemia, unspecified; I36.1 Nonrheumatic tricuspid (valve) insufficiency; J06.9 Acute upper respiratory infection, unspecified; R22.2 Localized swelling, mass and lump, trunk | CPT/HCPCS: 99213 ==

== ENCOUNTER 2025-04-04 08:02 | Oncology outpatient (recurring) (ONCR) | payer MEDICARE, OTHER, SELFPAY ==
[2025-04-04 09:20] LABS: Hematocrit 38.2 % (37-53); Hemoglobin 13.30 g/dL (11.27-16.99); Mean Corpuscular HGB Conc 34.8 g/dL (30-55); Mean Corpuscular Hemoglobin 33.7 pg (27-33); Mean Corpuscular Volume 96.7 fl (82-101); Nucleated Red Blood Cells % 0 %; Platelet Count 142 10^3/cmm (157-399); Red Blood Count 3.95 10^6/uL (3.85-5.65); White Blood Count 3.79 10^3/uL (3.29-11.43)
[2025-04-04 09:44] LABS: Alanine Aminotransferase 28 U/L (0-41); Albumin Level 4.5 g/dL (3.5-5.2); Alkaline Phosphatase 99 U/L (40-130); Anion Gap 17.2 (5-19); Aspartate Amino Transferase 27 U/L (0-40); Blood Urea Nitrogen 21 mg/dL (8-23); Calcium 9.0 mg/dL (8.5-10.5); Carbon Dioxide 21 mmol/L (22-29); Chloride 106 mmol/L (98-107); Ferritin 246 ng/mL (30-400); Globulin 2.0 g/dL (1.3-4.6); Glucose 133 mg/dL (65-115); Iron 70 ug/dL (59-158); Magnesium 2.0 mg/dL (1.7-2.3); Osmolality Calculated 295 mOsm/kg (285-295); Potassium 4.2 mmol/L (3.5-5.1); Sodium 140 mmol/L (136-145); Total Iron Binding Capacity 342 mcg/dl; Total Protein 6.5 g/dL (6.6-8.7); Unsaturated Iron Binding 272 ug/dL (112-347); Uric Acid 8.0 mg/dL (3.4-7.0)
[2025-04-04 10:00] LABS: Vitamin B12 902 pg/mL (232-1245)
[2025-04-04 10:28] VITALS: BP 99/66; PULSE 64; RESP 16; TEMP 36.4; O2SAT 96
[2025-04-04] MEDS: immune globulin (Gamunex-C) 40 GM in empty flexible container 1 EACH IV (10:28)
[2025-04-04 10:43] VITALS: BP 98/68; PULSE 49; RESP 16; TEMP 36.6; O2SAT 97
[2025-04-04 11:45] VITALS: BP 102/66; PULSE 43; RESP 16; TEMP 36.4; O2SAT 99
[2025-04-04 12:40] VITALS: BP 139/87; PULSE 54; RESP 17; TEMP 36.3; O2SAT 100
== END 2025-04-25 23:59 | disposition home or self-care (01) ==
PROVIDERS: Internal Medicine; PCP Family Medicine; Visit Provider Nurse Practitioner Family
DX: Z08 Encounter for follow-up examination after completed treatment for malignant neoplasm (principal); Z85.72 Personal history of non-Hodgkin lymphomas; Z79.620 Long term (current) use of immunosuppressive biologic; I48.21 Permanent atrial fibrillation; D80.1 Nonfamilial hypogammaglobulinemia; D64.9 Anemia, unspecified; D69.6 Thrombocytopenia, unspecified
CPT/HCPCS: 80053; 82607; 82728; 82746; 82784; 83540; 83550; 83615; 83735; 84100; 84550; 85025; 96365; 96366; 99213; J1561; J7050; J9999